=== PATIENT | male | born 1950 | race Caucasian/White ===

== ENCOUNTER 2023-01-27 15:33 | Inpatient (IN) | payer MEDICARE, OTHER, SELFPAY ==
[2023-01-27] VITALS (36 sets, daily range): BP systolic 107–143; BP diastolic 70–100; PULSE 90–165; RESP 15–30; TEMP 36.7–37.2; O2SAT 77–100; BMI 25.1
--- NOTE | 2023-01-27 15:56 | W.ED.WEAKNES ---
HPI - Weakness General: Chief complaint: Weakness Stated complaint: Pain When Urinating Time Seen by Provider: 01/27/23 15:50 History of Present Illness: This 72-year-old male presents to the ER with dysuria, nausea and vomiting that started 2 days ago. He has vomited twice today. He did not vomit yesterday. Patient denies fever. He has a past history of recurrent urinary tract infections. Last infection was few years ago. Patient is clinically stable. Associated symptoms: Reports dysuria, nausea and vomiting Review of Systems General: Reports: 10 or more systems reviewed and unremarkable except in HPI and below GI: Reports: nausea and vomiting : Reports: dysuria and urinary frequency Physical Exam Const: COMMON NORMALS: no acute distress, patient oriented x3, no limitations and alert Neck/C-Spine: COMMON NORMALS: full ROM and supple Chest: COMMONS NORMALS: normal inspection of the chest Resp: COMMON NORMALS: normal respiratory effort, No retractions, No use of accessory muscles and clear to auscultation bilaterally AUSCULTATION: clear to auscultation bilaterally Cardio: COMMON NORMALS: regular rate, regular rhythm and No murmurs present (Cardio) RATE: regular rate RHYTHM: regular rhythm GI: COMMON NORMALS: Normal to inspection, nondistended, normoactive bowel sounds present and non-tender : COMMON NORMALS: Yes no CVA tenderness BLADDER/KIDNEY EXAM: Yes no CVA tenderness Back/Pelvis: COMMON NORMALS: no CVA tenderness and no thoracic nor lumbar tenderness Extremity: GENERAL: Yes normal exam except as noted Neuro: COMMON NORMALS: patient oriented x3 and no focal motor deficits SENSORIUM/ORIENTATION: Yes alert Psych: COMMON NORMALS: mental status grossly normal and cooperative Course Reevaluation(s): Reevaluation #1: After receiving IV Cardizem 20 mg, heart rate dropped down to the 120s. Patient is still asymptomatic with no chest pain or shortness of breath. Reevaluation #2: Second dose of IV Cardizem 20 mg administered. Heart rate is currently less than 100. Patient remains clinically stable Consultations: Consultation #1: Case discussed with Dr. Bowers, infantry operations specialist on-call. He recommends admitting patient for further work-up and possible anticoagulation. Consultation #2: Case discussed with Dr. Kelly who accepts patient for admission. Vital Signs: Vital signs: Vital Signs Temperature 98.1 F 01/27/23 15:40 Pulse Rate 149 H 01/27/23 16:20 Respiratory Rate 20 H 01/27/23 16:20 Blood Pressure 107/87 01/27/23 16:20 Pulse Oximetry 99 01/27/23 16:20 Oxygen Delivery Me thod 01/27/23 15:40 MDM - Weakness Medical Decision Making Medical decision making: Patient presents to the ER with UTI symptoms. On evaluation, he was found to be in A-fib with RVR. Heart rate was between 140 and 160. Review of records revealed that close to 2 weeks ago, patient had a Holter monitor which at that time showed A-fib. Patient is not yet aware of the Holter monitor results. After administering IV Cardizem 20 mg x 2, heart rate was better controlled. Case discussed with Dr. Bowers, infantry operations specialist on-call. He recommends that patient be admitted for further evaluation and possible anticoagulation. Case discussed with Dr. Kelly who accepted patient for admission. Lab Data 01/27/23 16:12 01/27/23 16:12 Radiology Impressions Chest X-Ray 01/27/23 17:12 IMPRESSION: Minimal left lower lobe atelectasis or infiltrate. Correlate for pneumonia. Laboratory Results WBC 19.1 10^3/uL (4.0-10.0) H 01/27/23 16:12 RBC 5.05 10^6/uL (4.1-5.3) 01/27/23 16:12 Hgb 14.9 g/dL (11.7-16.6) 01/27/23 16:12 Hct 45.8 % (42.0-52.0) 01/27/23 16:12 MCV 90.7 fl (80-94) 01/27/23 16:12 MCH 29.5 pg (28.0-34.0) 01/27/23 16:12 MCHC 32.5 g/dL (30.0-36.0) 01/27/23 16:12 RDW 13.9 % (12.1-15.1) 01/27/23 16:12 Plt Count 334 10^3/cmm (130-400) 01/27/23 16:12 MPV 10.7 fL (7.4-10.4) H 01/27/23 16:12 Neut % (Auto) 85.8 % 01/27/23 16:12 Lymph % (Auto) 4.4 % 01/27/23 16:12 Mclennan % (Auto) 7.5 % 01/27/23 16:12 Eos % (Auto) 0.5 % 01/27/23 16:12 Baso % (Auto) 0.4 % 01/27/23 16:12 Neut # (Auto) 16.41 10^3/uL (1.8-7.7) H 01/27/23 16:12 Lymph # (Auto) 0.8 10^3/uL (0.8-4.8) 01/27/23 16:12 Mclennan # (Auto) 1.4 10^3/uL (0.2-0.9) H 01/27/23 16:12 Eos # (Auto) 0.1 10^3/uL (0.0-0.8) 01/27/23 16:12 Baso # (Auto) 0.1 10^3/uL (0.0-0.1) 01/27/23 16:12 Nucleated RBC % (auto) 0 % 01/27/23 16:12 Nucleated RBCs # 0.0 /100WBC 01/27/23 16:12 Sodium 142 mmol/L (136-145) 01/27/23 16:12 Potassium 3.4 mmol/L (3.5-5.1) L 01/27/23 16:12 Chloride 99 mmol/L (98-107) 01/27/23 16:12 Carbon Dioxide 22 mmol/L (22-29) 01/27/23 16:12 Anion Gap 24.4 (5-19) H 01/27/23 16:12 BUN 19 mg/dL (8-23) 01/27/23 16:12 Creatinine 1.9 mg/dL (0.7-1.2) H 01/27/23 16:12 GFR Calculation Not Reportable 01/27/23 16:12 Glucose 143 mg/dL (65-115) H 01/27/23 16:12 Calculated Osmolality 299 mOsm/kg (285-295) H 01/27/23 16:12 Calcium 9.0 mg/dL (8.5-10.5) 01/27/23 16:12 Total Bilirubin 0.9 mg/dL (0.15-1.2) 01/27/23 16:12 AST 12 U/L (0-40) 01/27/23 16:12 ALT 8 U/L (0-41) 01/27/23 16:12 Alkaline Phosphatase 85 U/L (40-130) 01/27/23 16:12 Troponin T Gen 5 ng/L 22 ng/L (0-15) H 01/27/23 16:07 Total Protein 7.7 g/dL (6.6-8.7) 01/27/23 16:12 Albumin 3.8 g/dL (3.5-5.2) 01/27/23 16:12 Globulin 3.9 g/dL (1.3-4.6) 01/27/23 16:12 Urine Color Light yellow (Yellow) 01/27/23 15:50 Urine Appearance Cloudy (CLEAR) A 01/27/23 15:50 Urine pH 8 (5-7) H 01/27/23 15:50 Ur Specific Mcwilliams 1.010 (1.005-1.030) 01/27/23 15:50 Urine Protein 1+ (Negative) H 01/27/23 15:50 Urine Glucose (UA) Norm (Normal) 01/27/23 15:50 Urine Ketones Negative (Negative) 01/27/23 15:50 Urine Blood 3+ (Negative) H 01/27/23 15:50 Urine Nitrate Positive (Negative) H 01/27/23 15:50 Urine Bilirubin Neg (Negative) 01/27/23 15:50 Prot Sulfosalicylic Acd Positive (Negative) 01/27/23 15:50 Urine Urobilinogen Neg mg/dL (Negative) 01/27/23 15:50 Ur Leukocyte Esterase 2+ (Negative) H 01/27/23 15:50 Urine RBC 5-10 /hpf (0-2) H 01/27/23 15:50 Urine WBC 80-100 /hpf (0-5) H 01/27/23 15:50 Ur Squamous Epith Cells None /hpf (0-5) 01/27/23 15:50 Amorphous Sediment Not Reportable 01/27/23 15:50 Urine Bacteria 3+ /hpf (NONE) H 01/27/23 15:50 Discharge Plan Discharge Patient Disposition: Admitted As Inpatient Clinical Impression: Atrial fibrillation with RVR, Acute UTI (urinary tract infection) Condition: Stable Coding Level of Care Code ED Environmental Protection Inspector for [place]
[2023-01-27] MEDS: sodium chloride 0.9% 1,000 ML 999 ML IV (16:22)
--- NOTE | 2023-01-27 16:22 | ECG_ITS ---
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 Measurements Intervals [place] Rate: 143 P: 0 CA: 0 QRS: 50 QRSD: 154 T: -17 QT: 294 QTc: 454 Interpretive Statements ATRIAL FIBRILLATION WITH RAPID VENTRICULAR RESPONSE RIGHT BUNDLE BRANCH BLOCK [120+ ms QRS DURATION, UPRIGHT V1, 40+ ms S IN I/aVL/V4/V5/V6] ST DEPRESSION, CONSIDER SUBENDOCARDIAL INJURY [0.1+ mV ST DEPRESSION] No previous ECG available for comparison Electronically Signed On 01-27-2023 16:43:11 CDT by Michael Valerio M.D. [id number] f
[2023-01-27] MEDS: dilTIAZem 5 mg/mL SDV 5 mL 20 MG IVP ×2 (16:23→17:44)
[2023-01-27 16:27] LABS: Basophils # 0.1 10^3/uL (0.0-0.1); Basophils % 0.4 %; Eosinophils # 0.1 10^3/uL (0.0-0.8); Eosinophils % 0.5 %; Hematocrit 45.8 % (42.0-52.0); Hemoglobin 14.9 g/dL (11.7-16.6); Lymphocytes # 0.8 10^3/uL (0.8-4.8); Lymphocytes % 4.4 %; Mean Corpuscular HGB Conc 32.5 g/dL (30.0-36.0); Mean Corpuscular Hemoglobin 29.5 pg (28.0-34.0); Mean Corpuscular Volume 90.7 fl (80-94); Mean Platelet Volume 10.7 fL (7.4-10.4); Monocytes # 1.4 10^3/uL (0.2-0.9); Monocytes % 7.5 %; Neutrophils # 16.41 10^3/uL (1.8-7.7); Neutrophils % 85.8 %; Nucleated Red Blood Cells % 0 %; Platelet Count 334 10^3/cmm (130-400); Red Blood Count 5.05 10^6/uL (4.1-5.3); Red Cell Distribution Width 13.9 % (12.1-15.1); White Blood Count 19.1 10^3/uL (4.0-10.0)
[2023-01-27 16:38] LABS: Bilirubin Urine Neg (Negative); Blood Urine 3+ (Negative); Glucose Urine UA Norm (Normal); Ketones Urine Negative (Negative); Leukocyte Esterase Urine 2+ (Negative); Nitrate Urine Positive (Negative); Protein Urine 1+ (Negative); Urine Appearance Cloudy (CLEAR); Urobilinogen Urine Neg (Negative); pH Urine 8 (5-7)
[2023-01-27 16:39] LABS: Add Urine Culture? Yes; Add Urine Microscopic? YES; Bacteria Urine 3+ /hpf; Sulfosalicylic Acid Urine Positive (Negative); Urine Color Light yellow (Yellow); WBC Urine 80-100 /hpf (0-5)
[2023-01-27 16:53] LABS: Alanine Aminotransferase 8 U/L (0-41); Albumin Level 3.8 g/dL (3.5-5.2); Alkaline Phosphatase 85 U/L (40-130); Anion Gap 24.4 (5-19); Aspartate Amino Transferase 12 U/L (0-40); Blood Urea Nitrogen 19 mg/dL (8-23); Carbon Dioxide 22 mmol/L (22-29); Chloride 99 mmol/L (98-107); Globulin 3.9 g/dL (1.3-4.6); Glucose 143 mg/dL (65-115); Osmolality Calculated 299 mOsm/kg (285-295); Potassium 3.4 mmol/L (3.5-5.1); Sodium 142 mmol/L (136-145); Total Bilirubin 0.9 mg/dL (0.15-1.2); Total Protein 7.7 g/dL (6.6-8.7)
--- NOTE | 2023-01-27 17:12 | XRR_ITS ---
PROCEDURE INFORMATION: Exam: XR Chest Exam date and time: 01/27/2023 5:31 PM Age: 72 years old Clinical indication: Other: A fib; Prior surgery; Surgery date: 6+ months; Surgery type: Open heart; Additional info: A-fib TECHNIQUE: Imaging protocol: Radiologic exam of the chest. Views: 1 view. COMPARISON: CR XR chest 2V* [id number] 07/01/2017 3:50 PM FINDINGS: Lungs: Minimal left lower lobe atelectasis or infiltrate. Pleural spaces: Unremarkable. No pleural effusion. No pneumothorax. Heart/Mediastinum: Stable heart size. Possible hiatal hernia. Bones/joints: Stable bones. Stable sternotomy changes. XR/XR chest 1V [id number] IMPRESSION: Minimal left lower lobe atelectasis or infiltrate. Correlate for pneumonia.
[2023-01-27] MEDS: cefTRIAXone 1,000 MG in sodium chloride 0.9% (plus) 50 ML 100 MG IV (17:44)
[2023-01-27 17:59] LABS: Troponin T (5th) Once 22 ng/L (0-15)
--- NOTE | 2023-01-27 18:03 | CTR_ITS ---
PROCEDURE INFORMATION: Exam: CT Abdomen And Pelvis Without Contrast Exam date and time: 01/27/2023 8:34 PM Age: 72 years old Clinical indication: Other: Dysuria. General weakness. Prior surgery; Surgery type: Appy. Hernia repair. Patient HX: General weakness with dysuria. History of recurrent UTI and pyelonephritis. ; Additional info: Renal stobe vs pyelo TECHNIQUE: Imaging protocol: Computed tomography of the abdomen and pelvis without contrast. Radiation optimization: All CT scans at this facility use at least one of these dose optimization techniques: automated exposure control; mA and/or kV adjustment per patient size (includes targeted exams where dose is matched to clinical indication); or iterative reconstruction. REPORTING DATA: Count of CT and Cardiac NM exams in prior 12 months: This patient has received [address] and 0 known cardiac nuclear medicine studies in the 12 months prior to the current study. COMPARISON: US renal BI* [id number] 03/25/2017 9:49 AM RADIATION DOSE METRICS: Total DLP (mGy-cm): 470.93 FINDINGS: Lungs: 2.2 cm pneumatocele in the right lower lobe. Coronary arteries: Severe calcified coronary artery disease. Diaphragm: Moderate intrathoracic hiatal hernia. Liver: Normal. No mass. Gallbladder and bile ducts: Normal. No calcified stones. No ductal dilation. Pancreas: Normal. No ductal dilation. Spleen: Normal. No splenomegaly. Adrenal glands: Normal. No mass. Kidneys and ureters: Multiple right renal simple cysts with the largest measuring > 1.0 cm . Multiple left renal simple cysts with the largest measuring > 1.0 cm. Bilateral nonobstructing renal calyceal stones. Stomach and bowel: Moderate diverticulosis. Appendix: No evidence of appendicitis. Intraperitoneal space: Unremarkable. No free air. No significant fluid collection. Vasculature: Calcification of the abdominal aorta and/or iliac arteries consistent with atherosclerotic vessel disease. 3.4 cm fusiform infrarenal abdominal aortic aneurysm without rupture. One or more calcified pelvic phleboliths. Lymph nodes: Unremarkable. No enlarged lymph nodes. Urinary bladder: Unremarkable as visualized. Reproductive: Unremarkable as visualized. Bones/joints: Unremarkable. No acute fracture. Soft tissues: Unremarkable. Other findings: Moderate calcified peripheral vascular disease. CT/CT abdomen pelvis wo con [id number] IMPRESSION: 1. 3.4 cm fusiform infrarenal abdominal aortic aneurysm without rupture. 2. Bilateral nonobstructing renal calyceal stones. 3. No obstructing ureteral stone or hydronephrosis. 4. CT without contrast is insensitive for radiographic detection of pyelonephritis. COMMENTS: Consistent with the [employer]'s Incidental Findings Committee white paper (J Am Narayan Radiol 2018): Any incidental renal lesion less than 1 cm or classified as too small to characterize, or any incidental cystic renal lesion characterized as simple-appearing, is likely benign. No follow-up imaging is recommended for these lesions per consensus recommendations based on imaging criteria.
--- NOTE | 2023-01-27 18:22 | ECG_ITS ---
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 Measurements Intervals [place] Rate: 113 P: 0 AK: 0 QRS: 76 QRSD: 142 T: -73 QT: 329 QTc: 453 Interpretive Statements ATRIAL FIBRILLATION WITH RAPID VENTRICULAR RESPONSE WITH ABERRANT CONDUCTION OR VENTRICULAR PREMATURE COMPLEXES RIGHT BUNDLE BRANCH BLOCK [120+ ms QRS DURATION, UPRIGHT V1, 40+ ms S IN I/aVL/V4/V5/V6] ST DEVIATION AND MODERATE T-WAVE ABNORMALITY, CONSIDER LATERAL ISCHEMIA [-0.1+ mV T-WAVE IN I/aVL/V5/V6] ST DEVIATION AND MODERATE T-WAVE ABNORMALITY, CONSIDER INFERIOR ISCHEMIA [-0.1+ mV T-WAVE IN II/aVF] Compared to ECG 01/27/2023 16:15:03 Ventricular premature complex(es) now present Aberrant conduction of supraventricular beat(s) now present T-wave abnormality now present Possible ischemia now present ST (T wave) deviation no longer present Electronically Signed On 01-28-2023 7:42:32 CDT by Michael Valerio M.D. [id number]
--- NOTE | 2023-01-27 18:30 | USCV_ITS ---
Sam Vogt Age: 72 Gender: M : 1950 Exam Date: 01/27/2023 19:05 Ordering Phys: Russell Kelly MD Technologist: TIA [place] [facility] [place]: atrial fibrillation with RVR, N+V x 2 days, history recurrent UTIs, history of MV repair 2000. BP: 107 / 87 HR: 99 Rhythm: Atrial fibrillation Technical Quality: Adequate MEASUREMENTS (Male / Female) Normal Values 2D ECHO LV Diastolic Diameter PLAX 4.2 cm 4.2 - 5.9 / 3.9 - 5.3 cm LV Systolic Diameter PLAX 3.3 cm IVS Diastolic Thickness 1.9 cm 0.6 - 1.0 / 0.6 - 0.9 cm IVS Systolic Thickness 2.2 cm LVPW Diastolic Thickness 1.3 cm 0.6 - 1.0 / 0.6 - 0.9 cm LVPW Systolic Thickness 1.4 cm LVOT Diameter 2.2 cm LV Ejection Fraction 2D Teich 44.1 % LV Ejection Fraction MOD 2C 72.4 % LV Ejection Fraction 2C AL 73.9 % LA Diameter 5.9 cm LA Width 5.1 cm LA Height 6.6 cm RA Width 4.0 cm RA Height 5.4 cm Aorta at Sinotubular Diameter 2.8 cm IVC Diameter 1.9 cm M-MODE Aortic Annulus Diameter 3.7 cm LA Ao Ratio MM 1.6 MV E Point Septal Separation 0.7 cm DOPPLER AV Peak Velocity 153.0 cm/s LVOT Peak Velocity 78.0 cm/s AV Area Cont Eq vti 2.0 cm squared AV Area Cont Eq pk 2.0 cm squared MV Peak Velocity 280.0 cm/s MV Area PHT 2.6 cm squared MV E' Velocity 124.0 cm/s Mitral E to MV E' Ratio 27.5 Mitral E to LV E' Lateral Ratio 25.5 Mitral E to LV E' Septal Ratio 30.3 TR Peak Velocity 249.0 cm/s TR Peak Gradient 24.8 mmHg TV Peak E Velocity 44.0 cm/s Right Atrial Pressure 10.0 mmHg Pulmonary Artery Systolic Pressu 34.8 mmHg PV Peak Velocity 83.0 cm/s RV Acceleration Time 0.1 s RV Ejection Time 0.3 s RV AcT/ET 0.2 FINDINGS Left Ventricle Diffuse hypokinesia of the left ventricular ejection fraction of 44%.mild left ventricular hypertrophy. Right Ventricle Normal right ventricular size and systolic function. Right Atrium Mildly increased right atrial size. Left Atrium Moderately increased left atrial size. Mitral Valve Moderate mitral annular calcification. Mild mitral valve regurgitation. Aortic Valve Thickened aortic valve. Tricuspid Valve Mild tricuspid valve regurgitation. Pulmonic Valve Pulmonic valve not well visualized. Pericardium No pericardial effusion. Aorta Normal aortic annulus size. IVC Inferior vena cava not visualized. CONCLUSIONS Diffuse hypokinesia of the left ventricular ejection fraction of 44%.mild left ventricular hypertrophy. Moderately increased left atrial size. Mildly increased right atrial size. Moderate mitral annular calcification. Mild mitral valve regurgitation. Thickened aortic valve. Mild tricuspid valve regurgitation. Estimated pulmonary artery peak systolic pressure 35 mm of Hg There is no pericardial effusion. There are no intracardiac masses. No similar previous studies are available for comparison Dr Gage Bowers MD [facility] (Electronically Signed) Final Date: 28 January 2023 17:02 S
--- NOTE | 2023-01-27 18:32 | PM.HP ---
Providers/Chief Complaint Primary Care Provider: Joe Hernandez MD Chief Complaint: Pain When Urinating History of Present Illness Sam Vogt is a 72 year old male with a past medical history of mitral valve rupture status postrepair, history of BPH, history of recurrent UTIs, history of hypertension who is originally from [place], moved here with his daughter, who presents to [facility] due to weakness, fatigue, dysuria, increased urinary frequency, and left flank pain. Patient tells me that he is here because he has been having increased urinary frequency, with dysuria with left flank pain, is having chills, no fevers, no nausea, vomiting. No history of nephrolithiasis. No history of pyelonephritis. He does tell me he gets with UTIs because he has a large prostate. In the emergency room, he was found to have a UTI, with elevated white blood cell count, creatinine 1.9, he was found to have A-fib with RVR, treated with Cardizem twice, currently in atrial fibrillation heart rates in the 90s, blood pressure 100/80, alert and oriented x x2, I do require frequent repeating of my questions, he is a bit encephalopathic, but can follow commands,, Review of Systems Const: Reports: chills, fatigue and malaise; Denies: fever(s) Eyes: Denies: change in vision Card: Reports: palpitations; Denies: chest pain Resp: Reports: dyspnea GI: Denies: abdominal pain, nausea or vomiting : Reports: flank pain, difficulty urinating, dysuria and urinary frequency Musc: Denies: back pain Skin/Breast: Denies: rash Neuro: Reports: weakness in extremities; Denies: headache(s) or numbness in extremities Medications/Allergies Home Medications Medication Instructions Recorded Confirmed Last Taken Type amlodipine 10 mg tablet 10 mg PO DAILY 01/27/23 01/27/23 01/27/23 History atorvastatin 20 mg tablet 20 mg PO DAILY 01/27/23 01/27/23 01/26/23 History calcitriol 0.5 mcg capsule 0.5 mcg PO BID 01/27/23 01/27/23 01/27/23 History fluoxetine 40 mg capsule 40 mg PO DAILY 01/27/23 01/27/23 01/27/23 History lisinopril 20 1 tab PO DAILY 01/27/23 01/27/2301/27/23 History mg-hydrochlorothiazide 25 mg tablet tamsulosin 0.4 mg capsule 0.4 mg PO BID 01/27/23 01/27/23 01/27/23 History Allergies Allergy/AdvReac Type Severity Reaction Status Date / Time No Known Allergies Allergy Unverified 01/27/23 15:45 PFSH Acute PFSH: Medical History (Updated 01/27/23 @ 18:39 by Russell Kelly MD) History of BPH History of hypertension History of recurrent UTIs Surgical History (Updated 01/27/23 @ 18:39 by Russell Kelly MD) H/O mitral valve repair History of appendectomy History of hernia surgery Family History (Updated 01/27/23 @ 18:39 by Russell Kelly MD) Mother CAD (coronary artery disease) Rheumatic heart disease Father CAD (coronary artery disease) Social History (Updated 01/27/23 @ 18:39 by Russell Kelly MD) Smoking and tobacco status: former smoker Alcohol intake: never Substance/Drug Use: never Vitals/I&O/Wt Last Vital Signs Temp 98.1 F 01/27/23 15:40 Pulse 149 H 01/27/23 16:20 Resp 20 H 01/27/23 16:20 BP 107/87 01/27/23 16:20 Pulse Ox 99 01/27/23 16:20 O2 Del Method 01/27/23 15:40 Weight last 48 hrs Weight 81.647 kg Physical Exam Const: COMMON NORMALS: no acute distress EXAM LIMITATIONS: altered mental status ORIENTATION/CONSCIOUSNESS: Yes awake, Yes oriented to person, Yes oriented to place and Yes confused; not oriented to time OTHER: Becomes drowsy, requires frequent redirection, frequent requestioning HENMT: COMMON NORMALS: normocephalic HEAD & SCALP: normocephalic Eye: COMMON NORMALS: Equal, round and reactive pupils present and EOMs intact bilaterally Neck/C-Spine: COMMON NORMALS: no JVD Lymph: LYMPHATIC: no lymphadenopathy noted Chest: COMMONS NORMALS: normal inspection of the chest Resp: COMMON NORMALS: normal respiratory effort, No retractions, No use of accessory muscles and clear to auscultation bilaterally AUSCULTATION: clear to auscultation bilaterally Cardio: COMMON NORMALS: no JVD, regular rate, S1 normal heart sound present and S2 normal heart sound present RATE: tachycardic RHYTHM: abnormal rhythm irregularly irregular HEART SOUNDS: S1 normal heart sound present and S2 normal heart sound present GI: COMMON NORMALS: Normal to inspection, nondistended, normoactive bowel sounds present, Soft to palpation and non-tender Back/Pelvis: OTHER: Left CVA tenderness Extremity: COMMON NORMALS: no pedal edema Neuro: COMMON NORMALS: CN's II-XII intact bilaterally, moves all extremities and no focal motor deficits Skin: NARRATIVE SKIN EXAM: No skin mottling Data 01/27/23 16:12 01/27/23 16:12 A&P Assessment and plan (1) SIRS (systemic inflammatory response syndrome): (2) Hypokalemia: (3) Acute kidney injury: (4) Pyelonephritis: (5) Acute encephalopathy: (6) Sepsis: (7) Atrial fibrillation with RVR: (8) Acute UTI (urinary tract infection): Plan Acute encephalopathy -Likely secondary to pyelonephritis, UTI -Neurochecks, aspiration precautions -Monitor urine cultures, blood cultures -Does have A-fib, but no focal neurologic deficits, no facial droop no slurring of his words, no paresthesias -We will do CT of the head A-fib with RVR -Likely secondary to SIRS, sepsis -Continue p.o. Cardizem 30 every 6 hours -Heparin drip -Cardiac echo -TSH, mag, serial EKGs serial troponins telemetry monitoring Acute pyelonephritis -With evidence of SIRS, sepsis given white blood cell count of 19,000, currently in A-fib, creatinine 1.9, acute encephalopathy -History of recurrent UTIs Plan -Moved to [facility] -Please Call catheter -Zosyn for antibiotic coverage -CT scan abdomen pelvis to eval for obstructive uropathy and pyelonephritis -Follow urine cultures, follow-up blood cultures -Full code -Heparin for DVT prophylaxis Hypokalemia, p.o. replacement Acute kidney injury -Secondary to acute pyelonephritis, UTI, sepsis -CT scan as above -IV fluids BPH, continue Flomax Pain control morphine Nausea control Zofran Full code Heparin drip for DVT prophylaxis Attestations Medical Necessity Statement*: Patient requires hospitalization, inpatient, greater than 2 minutes, for acute pyelonephritis, with SIRS, with sepsis, with acute encephalopathy, with A-fib with RVR Coding Level of Care Code Acute Code for Chg Fwd Diagnoses SIRS (systemic inflammatory response syndrome) R65.10 Hypokalemia E87.6 Acute kidney injury N17.9 Pyelonephritis N12 Acute encephalopathy G93.40 Sepsis A41.9 Atrial fibrillation with RVR I48.91 Acute UTI (urinary tract infection) N39.0
--- NOTE | 2023-01-27 18:42 | CTR_ITS ---
PROCEDURE INFORMATION: Exam: CT Head Without Contrast Exam date and time: 01/27/2023 8:31 PM Age: 72 years old Clinical indication: Other: General weakness. ; Additional info: AMS TECHNIQUE: Imaging protocol: Computed tomography of the head without contrast. Radiation optimization: All CT scans at this facility use at least one of these dose optimization techniques: automated exposure control; mA and/or kV adjustment per patient size (includes targeted exams where dose is matched to clinical indication); or iterative reconstruction. REPORTING DATA: Count of CT and Cardiac NM exams in prior 12 months: This patient has received [address] and 0 known cardiac nuclear medicine studies in the 12 months prior to the current study. COMPARISON: US soft tissue head neck [id number] 08/16/2017 2:03 PM RADIATION DOSE METRICS: Total DLP (mGy-cm): 1143.11 FINDINGS: Brain: Anterior left basal ganglia chronic lacunar-type infarct. No acute infarct. No hemorrhage. Involutional changes of the brain, commensurate with age. No mass effect. Cerebral ventricles: No ventriculomegaly. Paranasal sinuses: Visualized sinuses are unremarkable. No fluid levels. Mastoid air cells: Visualized mastoid air cells are well aerated. Bones/joints: Unremarkable. No acute fracture. Soft tissues: Unremarkable. CT/CT head wo con* [id number] IMPRESSION: No acute intracranial abnormality.
[2023-01-27 20:00] LABS: INR 1.22 (0.8-1.2)
[2023-01-27 20:05] LABS: Troponin 5 2HR 20.63 ng/L (0-15)
[2023-01-27 20:11] LABS: C Reactive Protein 115.8 mg/L (0.0-4.9)
[2023-01-27 20:18] LABS: Procalcitonin 0.43 ng/mL (0-0.5)
[2023-01-27] MEDS: sodium chloride 0.9% 1,000 ML 75 ML IV (22:30)
[2023-01-27] MEDS: piperacillin-tazobactam 3.375 GM in sodium chloride 0.9% (plus) 50 ML IV (22:31)
[2023-01-27] MEDS: dilTIAZem 30 mg Tablet PO (22:36)
[2023-01-27] MEDS: potassium chloride ER 20 mEq Tablet 40 MEQ PO (22:36)
[2023-01-27] MEDS: heparin 5,000 unit/mL INJ 1 mL IV (22:38)
[2023-01-27] MEDS: pantoprazole 40 mg SDV IVP (22:38)
[2023-01-27] MEDS: heparin drip 25,000 UNIT/500 ML PREMIX 23 UNIT IV (22:39)
[2023-01-27 22:43] LABS: Cholesterol 138 mg/dL (0-200); HDL Cholesterol 30 mg/dL (60-100); LDL Cholesterol Calculated 95 mg/dL (50-129); LDL HDL Ratio 3.17 RATIO (0.00-3.22); Thyroid Stimulating Hormone 3.85 uIU/mL (0.27-4.20); Triglycerides 66 mg/dL (0-150)
[2023-01-27 22:45] LABS: Estmated Average Glucose 111; Hemoglobin A1C 5.5 % (4.0-6.0)
[2023-01-28] VITALS (11 sets, daily range): BP systolic 112–142; BP diastolic 62–92; PULSE 82–118; RESP 18–30; TEMP 36.9–37.4; O2SAT 92–97
[2023-01-28] MEDS: magnesium sulfate premix 2 GM/50 ML PIGGYBACK IV (01:07)
--- NOTE | 2023-01-28 01:45 | PC.NURSE ---
Patient had previously refused lee insertion. Nurse bladder scanned patient after he voided 75ml, bladderscanned only showed 29ml in bladder. Patient states he does not feel full and does not feel he needs the lee as he is voiding on his own. Refusing lee at this time. Encouraged patient to continue to use urinal so nursing can continue to monitor output.
[2023-01-28] MEDS: dilTIAZem 30 mg Tablet PO (03:50)
[2023-01-28 04:43] LABS: Basophils % 0.3 %; Hematocrit 35.7 % (42.0-52.0); Hemoglobin 12.2 g/dL (11.7-16.6); Lymphocytes # 0.8 10^3/uL (0.8-4.8); Lymphocytes % 5.2 %; Mean Corpuscular HGB Conc 34.2 g/dL (30.0-36.0); Mean Corpuscular Hemoglobin 30.2 pg (28.0-34.0); Mean Corpuscular Volume 88.4 fl (80-94); Mean Platelet Volume 10.7 fL (7.4-10.4); Monocytes % 6.8 %; Neutrophils # 12.99 10^3/uL (1.8-7.7); Neutrophils % 86.8 %; Nucleated Red Blood Cells % 0 %; Platelet Count 203 10^3/cmm (130-400); Red Blood Count 4.04 10^6/uL (4.1-5.3); Red Cell Distribution Width 13.9 % (12.1-15.1)
[2023-01-28 05:01] LABS: Alanine Aminotransferase < 5 U/L (0-41); Albumin Level 2.9 g/dL (3.5-5.2); Alkaline Phosphatase 63 U/L (40-130); Anion Gap 15.2 (5-19); Aspartate Amino Transferase 10 U/L (0-40); Blood Urea Nitrogen 18 mg/dL (8-23); Calcium 7.7 mg/dL (8.5-10.5); Carbon Dioxide 21 mmol/L (22-29); Chloride 108 mmol/L (98-107); Glucose 128 mg/dL (65-115); Magnesium 1.8 mg/dL (1.7-2.3); Osmolality Calculated 296 mOsm/kg (285-295); Phosphorus 2.5 mg/dL (2.5-4.5); Potassium 3.2 mmol/L (3.5-5.1); Sodium 141 mmol/L (136-145); Total Bilirubin 0.8 mg/dL (0.15-1.2); Total Protein 5.9 g/dL (6.6-8.7)
[2023-01-28 05:02] LABS: Lactic Sepsis W/Reflex 0.9 mmol/L (0.5-2.2)
[2023-01-28 05:04] LABS: Partial Thromboplastin Time 124.7 SECONDS (23.9-36.7)
[2023-01-28] MEDS: piperacillin-tazobactam 3.375 GM in sodium chloride 0.9% (plus) 50 ML IV ×3 (05:21→21:47)
[2023-01-28] MEDS: magnesium lactate 84 mg Tablet PO (08:59)
[2023-01-28] MEDS: potassium chloride ER 20 mEq Tablet 40 MEQ PO (08:59)
[2023-01-28] MEDS: pantoprazole 40 mg SDV IVP ×2 (09:00→20:47)
[2023-01-28] MEDS: atorvastatin 40 mg Tablet 20 MG PO (09:00)
[2023-01-28] MEDS: dilTIAZem 60 mg Tablet PO ×3 (09:00→20:47)
[2023-01-28] MEDS: fluoxetine 20 mg Capsule 40 MG PO (09:00)
[2023-01-28] MEDS: tamsulosin 0.4 mg Capsule PO ×2 (09:00→17:06)
--- NOTE | 2023-01-28 09:54 | PC.CHAP ---
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 visit [] Patient/Family/Request visit [] Outpatient visit [] Follow-up visit [] Physician referral [] Code/Alert [x] Routine visit [] Staff referral [] Actively dying [] Patient sleeping [] Family support [] [] Out of room [] Palliative care [] [x] Receiving care in room [] Pre-surgical visit [] Trauma [] Long length of stay [] ICU visit [] Other: Relational/Emotional Strength [x] Patient feels connected with others/family/visitors/staff [] Distress [] Loneliness/isolation [] Abandonment Spirituality of Patient [x] Person of Marie [] Attends Islam of their Marie [x] Believes in Prayer [] Reads Bible or Mosque materials [] There are Spiritual issues to be addressed [employer] Interventions [x] Prayer [x] Active listening [x] Non-anxious presence [x] Spiritual/emotional support [] Crisis/trauma care [x] Spiritual counseling [] Bereavement support [] Provided bereavement packet [] Provided Bible/devotional materials [] Provided toy/stuffed animal, coloring book to patient or family member [] Provided Communion [] Anointing/Severn [] Salvation [x] Completed spiritual assessment [] Other: Impact on Illness or Injury [] Angry [] Fearful [] Anxious [] Often cries [] Exhaustion [] Unable to work [] Unable to attend mormon [] Unable to walk/stand [] Unable to read [] Unable to drive [] Unable to eat/drink [] Unable to sleep [] Unable to be with family [] Patient intubated [] Other: Summary senior dealing with a Karime had testers waiting on doctors report has a good attitude well go joe e Time spent with patient 10 mns
[2023-01-28 11:30] LABS: Partial Thromboplastin Time 68.3 SECONDS (23.9-36.7)
[2023-01-28] MEDS: sodium chloride 0.9% 1,000 ML 75 ML IV (12:58)
--- NOTE | 2023-01-28 15:36 | P.PN_ITS ---
Subjective Subjective: Patient was seen this morning, he is much more alert and awake, follows all commands, he has no pain complaints, no fever complaints Vitals/I&O/Wt Last Vital Signs Temp 98.5 F 01/28/23 11:53 Pulse 82 01/28/23 11:53 Resp 18 01/28/23 11:53 BP 123/79 01/28/23 11:53 Pulse Ox 95 01/28/23 11:53 O2 Del Method 01/28/23 11:53 01/28/23 01/28/23 01/28/23 06:59 14:59 22:59 Intake Total 369.117 / 9624.208 8265.4 / 2126.4 Output Total 75 / 125 400 / 400 Balance 294.117 / 8556.691 4740.4 / 1726.4 Weight last 48 hrs Weight 80.513 kg Weight 81.647 kg Physical Exam Const: COMMON NORMALS: no acute distress and patient oriented x3 Resp: COMMON NORMALS: normal respiratory effort, No retractions, No use of accessory muscles and clear to auscultation bilaterally AUSCULTATION: clear to auscultation bilaterally Cardio: COMMON NORMALS: regular rate, S1 normal heart sound present and S2 normal heart sound present RATE: regular rate RHYTHM: abnormal rhythm irregularly irregular HEART SOUNDS: S1 normal heart sound present and S2 normal heart sound present GI: COMMON NORMALS: Normal to inspection, nondistended, normoactive bowel sounds present and non-tender Extremity: COMMON NORMALS: no pedal edema Neuro: COMMON NORMALS: patient oriented x3 Psych: COMMON NORMALS: mental status grossly normal Data 01/28/23 04:29 01/28/23 04:29 Micro: Microbiology 01/27/23 15:50 Urine Culture - Preliminary Urine,Clean Catch Gram Negative Rods 01/27/23 19:10 Blood Culture - Preliminary Blood SPECIMEN COLLECTED 01/27/23 19:10 Blood Culture - Preliminary Blood SPECIMEN COLLECTED A&P Assessment and plan (1) SIRS (systemic inflammatory response syndrome): (2) Hypokalemia: (3) Acute kidney injury: (4) Pyelonephritis: (5) Acute encephalopathy: (6) Sepsis: (7) Atrial fibrillation with RVR: (8) Acute UTI (urinary tract infection): Plan Acute encephalopathy -Resolved -Likely secondary to pyelonephritis, UTI -Neurochecks, aspiration precautions -Monitor urine cultures, blood cultures -Does have A-fib, but no focal neurologic deficits, no facial droop no slurring of his words, no paresthesias A-fib with RVR -Likely secondary to SIRS, sepsis -Continue p.o. Cardizem 60 every 6 hours -Stop heparin drip, switch to Eliquis -Cardiac echo Acute pyelonephritis -With evidence of SIRS, sepsis given white blood cell count of 19,000, currently in A-fib, creatinine 1.9, acute encephalopathy -History of recurrent UTIs Plan -Moved to [facility] -Please Call catheter -Zosyn for antibiotic coverage -Follow urine cultures, follow-up blood cultures -Full code -Heparin for DVT prophylaxis Hypokalemia, p.o. replacement Acute kidney injury -Secondary to acute pyelonephritis, UTI, sepsis -IV fluids BPH, continue Flomax Pain control morphine Nausea control Zofran Full code Eliquis for DVT prophylaxis Attestations Medical Necessity Statement*: Patient requires hospitalization for A-fib with RVR, acute pyelonephritis, cute encephalopathy Coding Level of Care Code 01041 Moderate MDM includes number and complexity of problems actively addressed during encounter, amount and/or complexity of data reviewed/ordered and described risk of complication, morbidity or mortality of management as documen dennis Diagnoses SIRS (systemic inflammatory response syndrome) R65.10 Hypokalemia E87.6 Acute kidney injury N17.9 Pyelonephritis N12 Acute encephalopathy G93.40 Sepsis A41.9 Atrial fibrillation with RVR I48.91 Acute UTI (urinary tract infection) N39.0
[2023-01-28] MEDS: apixaban 5 mg Tablet PO (17:06)
--- NOTE | 2023-01-28 20:14 | PC.NURSE ---
shift report pt refused to have lee inserted when offered. educated pt and dgtr on anticoagulation for afib. notified case mgt that pt might be needing HHS per dgtr. dr dorantes made aware as well on this need. pt started to have tremors/shaking on left arm and legs. notified dr dorantes and he came in to see pt at bedside. pt unable to remember the name of his medicine for tremors when asked if he has been taking any med for the tremors, he said he takes it at home. will review med.
[2023-01-28] MEDS: ALPRAZolam 0.5 mg Tablet PO (21:46)
[2023-01-28] MEDS: acetaminophen 325 mg Tablet 650 MG PO (21:46)
[2023-01-29] VITALS (12 sets, daily range): BP systolic 109–150; BP diastolic 59–99; PULSE 71–97; RESP 19–26; TEMP 36.6–37; O2SAT 91–99
[2023-01-29] MEDS: sodium chloride 0.9% 1,000 ML 50 ML IV ×2 (03:35→21:32)
[2023-01-29] MEDS: dilTIAZem 60 mg Tablet PO ×4 (03:35→20:41)
[2023-01-29 05:37] LABS: Basophils % 0.3 %; Eosinophils # 0.1 10^3/uL (0.0-0.8); Eosinophils % 1.8 %; Hematocrit 35.2 % (42.0-52.0); Hemoglobin 11.1 g/dL (11.7-16.6); Lymphocytes # 0.8 10^3/uL (0.8-4.8); Lymphocytes % 11.9 %; Mean Corpuscular HGB Conc 31.5 g/dL (30.0-36.0); Mean Corpuscular Hemoglobin 28.6 pg (28.0-34.0); Mean Corpuscular Volume 90.7 fl (80-94); Monocytes # 0.3 10^3/uL (0.2-0.9); Monocytes % 4.3 %; Neutrophils # 5.35 10^3/uL (1.8-7.7); Neutrophils % 81.2 %; Nucleated Red Blood Cells % 0 %; Platelet Count 174 10^3/cmm (130-400); Red Blood Count 3.88 10^6/uL (4.1-5.3); Red Cell Distribution Width 14.3 % (12.1-15.1); White Blood Count 6.6 10^3/uL (4.0-10.0)
[2023-01-29 05:49] LABS: Alanine Aminotransferase < 5 U/L (0-41); Albumin Level 2.7 g/dL (3.5-5.2); Alkaline Phosphatase 63 U/L (40-130); Anion Gap 13.5 (5-19); Aspartate Amino Transferase 12 U/L (0-40); Blood Urea Nitrogen 17 mg/dL (8-23); Calcium 7.7 mg/dL (8.5-10.5); Carbon Dioxide 21 mmol/L (22-29); Chloride 113 mmol/L (98-107); Glucose 91 mg/dL (65-115); Magnesium 1.8 mg/dL (1.7-2.3); Osmolality Calculated 299 mOsm/kg (285-295); Phosphorus 2.6 mg/dL (2.5-4.5); Potassium 3.5 mmol/L (3.5-5.1); Sodium 144 mmol/L (136-145); Total Bilirubin 0.5 mg/dL (0.15-1.2); Total Protein 5.7 g/dL (6.6-8.7)
[2023-01-29] MEDS: piperacillin-tazobactam 3.375 GM in sodium chloride 0.9% (plus) 50 ML IV ×3 (06:04→21:33)
[2023-01-29] MEDS: levothyroxine 125 mcg Tablet PO (06:04)
[2023-01-29] MEDS: apixaban 5 mg Tablet PO ×2 (06:04→17:28)
[2023-01-29 09:10] LABS: Creatine Phosphokinase 159 U/L (39-308)
[2023-01-29] MEDS: fluoxetine 20 mg Capsule 40 MG PO (09:11)
[2023-01-29] MEDS: tamsulosin 0.4 mg Capsule PO ×2 (09:12→17:28)
[2023-01-29] MEDS: atorvastatin 40 mg Tablet 20 MG PO (09:12)
[2023-01-29] MEDS: magnesium lactate 84 mg Tablet PO (09:12)
[2023-01-29] MEDS: pantoprazole 40 mg SDV IVP ×2 (09:12→20:42)
--- NOTE | 2023-01-29 14:24 | PM.PN ---
Subjective Subjective: Patient was seen this morning, he feels better, he had episodes of anxiety during the night, requiring Xanax Vitals/I&O/Wt Last Vital Signs Temp 97.9 F 01/29/23 09:08 Pulse 81 01/29/23 12:23 Resp 25 H 01/29/23 12:23 BP 136/96 01/29/23 12:23 Pulse Ox 92 01/29/23 12:23 O2 Del Method 01/29/23 09:08 01/28/23 01/29/23 01/29/23 22:59 06:59 14:59 Intake Total 1179.2 / 3305.6 1174.167 / 4479.767 634 / 634 Output Total 550 / 950 625 / 1575 100 / 100 Balance 629.2 / 2355.6 549.167 / 2904.767 534 / 534 Weight last 48 hrs Weight 81.828 kg Weight 80.513 kg Weight 81.647 kg Physical Exam Const: COMMON NORMALS: no acute distress and patient oriented x3 Resp: COMMON NORMALS: normal respiratory effort, No retractions, No use of accessory muscles and clear to auscultation bilaterally AUSCULTATION: clear to auscultation bilaterally Cardio: COMMON NORMALS: regular rate, regular rhythm, S1 normal heart sound present and S2 normal heart sound present RATE: regular rate RHYTHM: regular rhythm HEART SOUNDS: S1 normal heart sound present and S2 normal heart sound present GI: COMMON NORMALS: Normal to inspection, nondistended, normoactive bowel sounds present and non-tender Extremity: COMMON NORMALS: no pedal edema Neuro: COMMON NORMALS: patient oriented x3 Psych: COMMON NORMALS: mental status grossly normal Data 01/29/23 04:39 01/29/23 04:39 Micro: Microbiology 01/27/23 15:50 Urine Culture - Final Urine,Clean Catch Proteus mirabilis 01/27/23 19:10 Blood Culture - Preliminary Blood NEGATIVE TO DATE 01/27/23 19:10 Blood Culture - Preliminary Blood NEGATIVE TO DATE A&P Assessment and plan (1) SIRS (systemic inflammatory response syndrome): (2) Hypokalemia: (3) Acute kidney injury: (4) Pyelonephritis: (5) Acute encephalopathy: (6) Sepsis: (7) Atrial fibrillation with RVR: (8) Acute UTI (urinary tract infection): Plan Acute encephalopathy -Resolved -Likely secondary to pyelonephritis, UTI -Neurochecks, aspiration precautions -Monitor urine cultures, blood cultures -Does have A-fib, but no focal neurologic deficits, no facial droop no slurring of his words, no paresthesias A-fib with RVR -Likely secondary to SIRS, sepsis -Continue p.o. Cardizem 60 every 6 hours -Continue Eliquis -Cardiac echo Diffuse hypokinesia of the left ventricular ejection fraction of ?44%.mild left ventricular hypertrophy. ?Moderately increased left atrial size. ?Mildly increased right atrial size. ?Moderate mitral annular calcification. Mild mitral valve ?regurgitation. ?Thickened aortic valve. ?Mild tricuspid valve regurgitation. ?Estimated pulmonary artery peak systolic pressure 35 mm of Hg ?There is no pericardial effusion. ?There are no intracardiac masses. ?No similar previous studies are available for comparison Acute pyelonephritis -With evidence of SIRS, sepsis given white blood cell count of 19,000, currently in A-fib, creatinine 1.9, acute encephalopathy -History of recurrent UTIs Plan -Moved to [facility] -Zosyn for antibiotic coverage -Follow urine cultures, follow-up blood cultures -Full code -Heparin for DVT prophylaxis Hypokalemia, p.o. replacement Acute kidney injury -Secondary to acute pyelonephritis, UTI, sepsis -IV fluids BPH, continue Flomax Pain control morphine Nausea control Zofran Full code Eliquis for DVT prophylaxis Attestations Medical Necessity Statement*: Patient requires hospitalization for acute encephalopathy, A-fib, acute pyelonephritis, LILY, inpatient, greater than 2 midnights Diagnoses SIRS (systemic inflammatory response syndrome) R65.10 Hypokalemia E87.6 Acute kidney injury N17.9 Pyelonephritis N12 Acute encephalopathy G93.40 Sepsis A41.9 Atrial fibrillation with RVR I48.91 Acute UTI (urinary tract infection) N39.0
[2023-01-29] MEDS: CLONazepam 0.5 mg Tablet 0.25 MG PO (20:39)
[2023-01-30] VITALS (8 sets, daily range): BP systolic 123–139; BP diastolic 71–94; PULSE 73–103; RESP 18–26; TEMP 36.5–37.2; O2SAT 93–95
[2023-01-30] MEDS: dilTIAZem 60 mg Tablet PO ×2 (02:03→09:10)
[2023-01-30 03:33] LABS: Basophils # 0.1 10^3/uL (0.0-0.1); Basophils % 0.9 %; Eosinophils # 0.2 10^3/uL (0.0-0.8); Eosinophils % 3.5 %; Hematocrit 33.9 % (42.0-52.0); Hemoglobin 10.8 g/dL (11.7-16.6); Lymphocytes # 0.9 10^3/uL (0.8-4.8); Lymphocytes % 16.3 %; Mean Corpuscular HGB Conc 31.9 g/dL (30.0-36.0); Mean Corpuscular Hemoglobin 28.8 pg (28.0-34.0); Mean Corpuscular Volume 90.4 fl (80-94); Mean Platelet Volume 10.6 fL (7.4-10.4); Monocytes # 0.4 10^3/uL (0.2-0.9); Monocytes % 6.1 %; Neutrophils # 4.16 10^3/uL (1.8-7.7); Nucleated Red Blood Cells % 0 %; Platelet Count 194 10^3/cmm (130-400); Red Blood Count 3.75 10^6/uL (4.1-5.3); Red Cell Distribution Width 14.3 % (12.1-15.1); White Blood Count 5.7 10^3/uL (4.0-10.0)
[2023-01-30 03:49] LABS: Alanine Aminotransferase 7 U/L (0-41); Albumin Level 2.6 g/dL (3.5-5.2); Alkaline Phosphatase 63 U/L (40-130); Anion Gap 14.6 (5-19); Aspartate Amino Transferase 13 U/L (0-40); Blood Urea Nitrogen 19 mg/dL (8-23); Calcium 7.5 mg/dL (8.5-10.5); Carbon Dioxide 19 mmol/L (22-29); Chloride 110 mmol/L (98-107); Glucose 95 mg/dL (65-115); Magnesium 1.4 mg/dL (1.7-2.3); Osmolality Calculated 292 mOsm/kg (285-295); Phosphorus 2.9 mg/dL (2.5-4.5); Potassium 3.6 mmol/L (3.5-5.1); Sodium 140 mmol/L (136-145); Total Bilirubin 0.3 mg/dL (0.15-1.2); Total Protein 5.6 g/dL (6.6-8.7)
[2023-01-30] MEDS: apixaban 5 mg Tablet PO (05:18)
[2023-01-30] MEDS: levothyroxine 125 mcg Tablet PO (05:18)
[2023-01-30] MEDS: piperacillin-tazobactam 3.375 GM in sodium chloride 0.9% (plus) 50 ML IV (05:19)
[2023-01-30] MEDS: magnesium lactate 84 mg Tablet PO (09:10)
[2023-01-30] MEDS: tamsulosin 0.4 mg Capsule PO (09:10)
[2023-01-30] MEDS: pantoprazole 40 mg SDV IVP (09:10)
[2023-01-30] MEDS: fluoxetine 20 mg Capsule 40 MG PO (09:11)
[2023-01-30] MEDS: aspirin 81 mg EC Tablet PO (09:11)
[2023-01-30] MEDS: atorvastatin 40 mg Tablet 20 MG PO (09:12)
--- NOTE | 2023-01-30 09:57 | PM.DCS ---
Discharge Providers Date of Admission: 01/27/23 18:30 Date of Discharge: January 30, 2023 Attending Provider at Admission: Russell Kelly MD Attending Provider at Discharge: Russell Kelly MD Primary Care Provider: Joe Hernandez MD Diagnoses at Discharge Discharge Diagnosis (1) SIRS (systemic inflammatory response syndrome): Status: Acute (2) Hypokalemia: Status: Acute (3) Acute kidney injury: Status: Acute (4) Pyelonephritis: Status: Acute (5) Acute encephalopathy: Status: Acute (6) Sepsis: Status: Acute (7) Atrial fibrillation with RVR: Status: Acute (8) Acute UTI (urinary tract infection): Status: Acute Reason for Visit Reason for Visit: Pain When Urinating Hospital Course Hospital Course Sam Vogt is a 72 year old male with a past medical history of mitral valve rupture status postrepair, history of BPH, history of recurrent UTIs, history of hypertension who is originally from [place], moved here with his daughter, who presents to [facility] due to weakness, fatigue, dysuria, increased urinary frequency, and left flank pain.? Patient tells me that he is here because he has been having increased urinary frequency, with dysuria with left flank pain, is having chills, no fevers, no nausea, vomiting.? No history of? nephrolithiasis.? No history of pyelonephritis.? He does tell me he gets with UTIs because he has a large prostate.? In the emergency room, he was found to have a UTI, with elevated white blood cell count, creatinine 1.9, he was found to have A-fib with RVR, treated with Cardizem twice, currently in atrial fibrillation heart rates in the 90s, blood pressure 100/80, alert and oriented x x2, I do require frequent repeating of my questions, he is a bit encephalopathic, but can follow commands Patient was admitted to [facility] for acute pyelonephritis with SIRS, with acute encephalopathy, with acute kidney injury, dehydration, received IV fluids, received broad-spectrum antibiotic therapy, urine culture showed Proteus, overall clinically improved, mentation improved, remained afebrile, blood cultures so far have been unremarkable. We will discharge him on 5 remaining days of cefdinir with a close follow-up with primary care provider as outpatient Patient had A-fib with RVR during his hospitalization, managed with Cardizem, monitor with heparin drip, overall clinically improved, transition to Eliquis, hemoglobin remained stable. Patient will be discharged with Eliquis 5 mg twice daily with Cardizem 120 twice daily with close follow-up with cardiology as outpatient. On patient's echocardiogram, he had an EF of 44%, with mild diffuse hypokinesia of the left ventricle, no chest pain complaints, ongoing to discharge him on aspirin, statin, Eliquis as above, with a close follow-up with cardiology as outpatient for decision on stress testing versus angiogram For his LILY on CKD, creatinine on discharge 1.5, follow-up with primary care to recheck kidney function in a week For evidence of BPH, discharged on Flomax 0.4 twice daily, referral has been sent for urology He also had evidence of a infrarenal abdominal aortic aneurysm measuring 3.4 cm, I would have him follow-up with Dr. Tapia for monitoring as outpatient Physical Exam Const: COMMON NORMALS: no acute distress and patient oriented x3 Resp: COMMON NORMALS: normal respiratory effort, No retractions, No use of accessory muscles and clear to auscultation bilaterally AUSCULTATION: clear to auscultation bilaterally Cardio: COMMON NORMALS: regular rate, regular rhythm, S1 normal heart sound present and S2 normal heart sound present RATE: regular rate RHYTHM: regular rhythm HEART SOUNDS: S1 normal heart sound present and S2 normal heart sound present GI: COMMON NORMALS: Normal to inspection, nondistended, normoactive bowel sounds present and non-tender Extremity: COMMON NORMALS: no pedal edema Neuro: COMMON NORMALS: patient oriented x3 Psych: COMMON NORMALS: mental status grossly normal Discharge Data Studies Completed and Pending Completed Studies During Hospitalization Category Date Time Status CT abdomen pelvis wo con [id number] Stat Cat Scan 01/27/23 18:[address] head wo con* [id number] Stat Cat Scan 01/27/23 18:42 Completed XR chest 1V [id number] Stat Exams 01/27/23 17:12 Completed CV. echo complete* [id number] Stat Ultrasound 01/27/23 18:30 Completed Pending at discharge Category Date Time Status Blood Culture Stat Lab 01/27/23 19:10 Results Radiology Impressions Chest X-Ray 01/27/23 17:12 IMPRESSION: Minimal left lower lobe atelectasis or infiltrate. Correlate for pneumonia. Abdomen/Pelvis CT 01/27/23 18:03 IMPRESSION: 1. 3.4 cm fusiform infrarenal abdominal aortic aneurysm without rupture. 2. Bilateral nonobstructing renal calyceal stones. 3. No obstructing ureteral stone or hydronephrosis. 4. CT without contrast is insensitive for radiographic detection of pyelonephritis. COMMENTS: Consistent with the [employer]'s Incidental Findings Committee white paper (J Am Narayan Radiol 2018): Any incidental renal lesion less than 1 cm or classified as too small to characterize, or any incidental cystic renal lesion characterized as simple-appearing, is likely benign. No follow-up imaging is recommended for these lesions per consensus recommendations based on imaging criteria. Head CT 01/27/23 18:42 IMPRESSION: No acute intracranial abnormality. Laboratory Results WBC 5.7 10^3/uL (4.0-10.0) 01/30/23 03:02 RBC 3.75 10^6/uL (4.1-5.3) L 01/30/23 03:02 Hgb 10.8 g/dL (11.7-16.6) L 01/30/23 03:02 Hct 33.9 % (42.0-52.0) L 01/30/23 03:02 MCV 90.4 fl (80-94) 01/30/23 03:02 MCH 28.8 pg (28.0-34.0) 01/30/23 03:02 MCHC 31.9 g/dL (30.0-36.0) 01/30/23 03:02 RDW 14.3 % (12.1-15.1) 01/30/23 03:02 Plt Count 194 10^3/cmm (130-400) 01/30/23 03:02 MPV 10.6 fL (7.4-10.4) H 01/30/23 03:02 Neut % (Auto) 73.0 % 01/30/23 03:02 Lymph % (Auto) 16.3 % 01/30/23 03:02 Winston % (Auto) 6.1 % 01/30/23 03:02 Eos % (Auto) 3.5 % 01/30/23 03:02 Baso % (Auto) 0.9 % 01/30/23 03:02 Neut # (Auto) 4.16 10^3/uL (1.8-7.7) 01/30/23 03:02 Lymph # (Auto) 0.9 10^3/uL (0.8-4.8) 01/30/23 03:02 Winston # (Auto) 0.4 10^3/uL (0.2-0.9) 01/30/23 03:02 Eos # (Auto) 0.2 10^3/uL (0.0-0.8) 01/30/23 03:02 Baso # (Auto) 0.1 10^3/uL (0.0-0.1) 01/30/23 03:02 Nucleated RBC % (auto) 0 % 01/30/23 03:02 Nucleated RBCs # 0.0 /100WBC 01/30/23 03:02 PT 15.80 SECONDS (12.1-14.9) H 01/27/23 19:10 INR 1.22 (0.8-1.2) H 01/27/23 19:10 APTT 68.3 SECONDS (23.9-36.7) H 01/28/23 11:01 Sodium 140 mmol/L (136-145) 01/30/23 03:02 Potassium 3.6 mmol/L (3.5-5.1) 01/30/23 03:02 Chloride 110 mmol/L (98-107) H 01/30/23 03:02 Carbon Dioxide 19 mmol/L (22-29) L 01/30/23 03:02 Anion Gap 14.6 (5-19) 01/30/23 03:02 BUN 19 mg/dL (8-23) 01/30/23 03:02 Creatinine 1.5 mg/dL (0.7-1.2) H 01/30/23 03:02 GFR Calculation Not Reportable 01/30/23 03:02 Glucose 95 mg/dL (65-115) 01/30/23 03:02 Estimat Average Glucose 111 01/27/23 16:12 Hemoglobin A1c 5.5 % (4.0-6.0) 01/27/23 16:12 Calculated Osmolality 292 mOsm/kg (285-295) 01/30/23 03:02 Lactic Acid 0.9 mmol/L (0.5-2.2) 01/28/23 04:29 Lactate 2.0 mmol/L (0.5-2.2) 01/27/23 19:10 Calcium 7.5 mg/dL (8.5-10.5) L 01/30/23 03:02 Phosphorus 2.9 mg/dL (2.5-4.5) 01/30/23 03:02 Magnesium 1.4 mg/dL (1.7-2.3) L 01/30/23 03:02 Total Bilirubin 0.3 mg/dL (0.15-1.2) 01/30/23 03:02 AST 13 U/L (0-40) 01/30/23 03:02 ALT 7 U/L (0-41) 01/30/23 03:02 Alkaline Phosphatase 63 U/L (40-130) 01/30/23 03:02 Creatine Kinase 159 U/L (39-308) 01/29/23 04:39 Troponin T Gen 5 ng/L 22 ng/L (0-15) H 01/27/23 16:07 Troponin T 120 Minute 20.63 ng/L (0-15) H 01/27/23 19:10 Delta Troponin T Not Reportable 01/27/23 19:10 C-Reactive Protein 115.8 mg/L (0.0-4.9) H 01/27/23 19:10 Total Protein 5.6 g/dL (6.6-8.7) L 01/30/23 03:02 Albumin 2.6 g/dL (3.5-5.2) L 01/30/23 03:02 Globulin 3.0 g/dL (1.3-4.6) 01/30/23 03:02 Triglycerides 66 mg/dL (0-150) 01/27/23 19:10 Cholesterol 138 mg/dL (0-200) 01/27/23 19:10 LDL Cholesterol, Calc 95 mg/dL (50-129) 01/27/23 19:10 HDL Cholesterol 30 mg/dL (60-100) L 01/27/23 19:10 LDL/HDL Ratio 3.17 RATIO (0.00-3.22) 01/27/23 19:10 Cholesterol/HDL Ratio 4.60 mg/dL (1.0-5.00) 01/27/23 19:10 Procalcitonin 0.43 ng/mL (0-0.5) 01/27/23 19:10 TSH 3.85 uIU/mL (0.27-4.20) 01/27/23 19:10 Urine Color Light yellow (Yellow) 01/27/23 15:50 Urine Appearance Cloudy (CLEAR) A 01/27/23 15:50 Urine pH 8 (5-7) H 01/27/23 15:50 Ur Specific [place] 1.010 (1.005-1.030) 01/27/23 15:50 Urine Protein 1+ (Negative) H 01/27/23 15:50 Urine Glucose (UA) Norm (Normal) 01/27/23 15:50 Urine Ketones Negative (Negative) 01/27/23 15:50 Urine Blood 3+ (Negative) H 01/27/23 15:50 Urine Nitrate Positive (Negative) H 01/27/23 15:50 Urine Bilirubin Neg (Negative) 01/27/23 15:50 Prot Sulfosalicylic Acd Positive (Negative) 01/27/23 15:50 Urine Urobilinogen Neg mg/dL (Negative) 01/27/23 15:50 Ur Leukocyte Esterase 2+ (Negative) H 01/27/23 15:50 Urine RBC 5-10 /hpf (0-2) H 01/27/23 15:50 Urine WBC 80-100 /hpf (0-5) H 01/27/23 15:50 Ur Squamous Epith Cells None /hpf (0-5) 01/27/23 15:50 Amorphous Sediment Not Reportable 01/27/23 15:50 Urine Bacteria 3+ /hpf (NONE) H 01/27/23 15:50 Vitals Last Vital Signs Temp 97.7 F 01/30/23 08:29 Pulse 103 H 01/30/23 08:29 Resp 18 01/30/23 08:29 BP 130/87 01/30/23 08:29 Pulse Ox 93 01/30/23 04:00 O2 Del Method 01/30/23 04:00 Discharge Plan Discharge Patient Disposition: Home Condition: Stable Prescriptions: New magnesium L-lactate [Magtab] 84 mg Tablet Extended Release 84 mg PO DAILY 30 Days Qty: 30 0RF Eliquis 5 mg Tablet 5 mg PO Q12H 30 Days Qty: 60 0RF aspirin 81 mg Tablet,Delayed Release (Dr/Ec) 81 mg PO DAILY 30 Days Qty: 30 0RF cefdinir 300 mg capsule 300 mg PO BID 5 Days Qty: 10 0RF diltiazem HCl [Cardizem] 120 mg tablet 120 mg PO BID 30 Days Qty: 60 0RF Continued calcitriol 0.5 mcg capsule 0.5 mcg PO BID levothyroxine 125 mcg Tablet 125 mcg PO DAILY tamsulosin 0.4 mg capsule 0.4 mg PO BID 30 Days Qty: 60 0RF atorvastatin 20 mg tablet 20 mg PO DAILY 30 Days Qty: 30 0RF fluoxetine 40 mg capsule 40 mg PO DAILY 30 Days Qty: 30 0RF Discontinued amlodipine 10 mg tablet 10 mg PO DAILY lisinopril-hydrochlorothiazide 20-25 mg tablet 1 tab PO DAILY Discharge Orders: Discharge Order (Routine); Ordered 01/30/23 Ordered By: Russell Kelly Referrals: Harvey Mcfadden [Referring] - 2 weeks Joe Hernandez MD [Primary Care Provider] - (Please call Dr. Hernandez's Office on Wednesday at [phone] to schedule a follow up appointment for 2 weeks. ) Michael Valerio M.D [Physician] - 4-7 days Manny Tapia MD [Physician] - 2 months (aaa monitoring) Discharge Diet: Cardiac Discharge Activity: Resume usual activity Patient Instructions: Apixaban (By mouth), A-fib (Atrial Fibrillation) (DC), Opioid Safety, Benign Prostatic Hypertrophy (BPH) Activity Restrictions/Additional Instructions: - Please take antibiotics as prescribed -Please have your primary care provider recheck your potassium, your kidney function, and your hemoglobin next week -Eliquis is a strong blood thinner, if you develop bloody or black stools go to the emergency room -See cardiology in 1 week -If you have any chest pain, palpitations, go to the emergency room Discharge Attestations Time Spent in Discharge Care*: greater than 30 min Quality Metrics Clinical Quality Measures [ No reported AMI, CVA or VTE this stay] Coding Level of Care Code 32664 Total time (in minutes) for Discharge: 40 Diagnoses SIRS (systemic inflammatory response syndrome) R65.10 Hypokalemia E87.6 Acute kidney injury N17.9 Pyelonephritis N12 Acute encephalopathy G93.40 Sepsis A41.9 Atrial fibrillation with RVR I48.91 Acute UTI (urinary tract infection) N39.0
--- NOTE | 2023-01-30 11:15 | PC.SOCIAL ---
IMM Update pg 2 of IMM updated and reviewed w/ patient. Copy provided and copy dated, initialed and placed in chart.
== END 2023-01-30 14:00 | disposition home or self-care (01) | DRG 872 ==
LOC: ER 18:09 → CSU 20:39
PROVIDERS: Physician Assistant; Admitting Provider Family Medicine; Emergency Provider Family Medicine; PCP Family Medicine; Visit Provider Family Medicine
DX: A41.89 Other specified sepsis (principal); N10 Acute pyelonephritis; G93.49 Other encephalopathy; N17.9 Acute kidney failure, unspecified; I48.91 Unspecified atrial fibrillation; N40.1 Benign prostatic hyperplasia with lower urinary tract symptoms; R35.0 Frequency of micturition; Z87.440 Personal history of urinary (tract) infections; I12.9 Hypertensive chronic kidney disease with stage 1 through stage 4 chronic kidney disease, or unspecified chronic kidney disease; N18.9 Chronic kidney disease, unspecified; E86.0 Dehydration; I71.43 Infrarenal abdominal aortic aneurysm, without rupture; E87.6 Hypokalemia; F41.9 Anxiety disorder, unspecified
CPT/HCPCS: 36415; 70450; 71045; 74176; 80053; 80061; 81001; 82550; 83036; 83605; 83735; 84100; 84145; 84443; 84484; 85025; 85610; 85730; 86140; 87040; 87077; 87086; 87186; 93005; 93306; 94664; 96365; 96375; 96376; 97116; 97161; 97166; 97530; 99285; C9113; J0696; J1644; J2543; J3475; J3490; J7030

== ENCOUNTER → 2023-02-25 13:03 | Outpatient (BNVA) | payer MEDICARE, OTHER, SELFPAY | PROVIDERS: PCP Family Medicine; Visit Provider Internal Medicine | DX: I48.91 Unspecified atrial fibrillation (principal); I11.0 Hypertensive heart disease with heart failure; I50.9 Heart failure, unspecified; Z87.891 Personal history of nicotine dependence; Z79.82 Long term (current) use of aspirin | CPT/HCPCS: 99204 ==

== ENCOUNTER → 2023-05-18 07:50 | Outpatient (BNVA) | payer MEDICARE, OTHER, SELFPAY | PROVIDERS: PCP Family Medicine; Visit Provider Podiatrist Foot & Ankle Surgery | DX: M76.61 Achilles tendinitis, right leg (principal); M76.71 Peroneal tendinitis, right leg; M21.612 Bunion of left foot | CPT/HCPCS: 73630; 97760; 99204; L4361 ==

== ENCOUNTER 2023-05-18 11:02 | Outpatient (CLI) | payer MEDICARE, OTHER, SELFPAY | END 2023-05-18 11:03 | disposition home or self-care (01) | LOC: SPT 11:03 | PROVIDERS: PCP Family Medicine; Visit Provider Podiatrist Foot & Ankle Surgery | DX: M76.61 Achilles tendinitis, right leg (principal); M76.71 Peroneal tendinitis, right leg; M21.612 Bunion of left foot | CPT/HCPCS: 97760; 99204; L4361 ==

== ENCOUNTER → 2023-06-01 08:42 | Outpatient (BNVA) | payer MEDICARE, OTHER, SELFPAY | PROVIDERS: PCP Family Medicine; Visit Provider Podiatrist Foot & Ankle Surgery | DX: M76.61 Achilles tendinitis, right leg (principal); M79.672 Pain in left foot | CPT/HCPCS: 99213 ==

== ENCOUNTER → 2023-08-16 14:28 | Outpatient (BNVA) | payer MEDICARE, OTHER, SELFPAY | PROVIDERS: PCP Family Medicine; Visit Provider Nurse Practitioner Family | DX: I50.9 Heart failure, unspecified (principal); I48.91 Unspecified atrial fibrillation; I45.10 Unspecified right bundle-branch block; Z87.891 Personal history of nicotine dependence | CPT/HCPCS: 36415; 80048; 83880; 93005; 99214 ==

== ENCOUNTER 2023-08-18 11:54 | Outpatient (CLI) | payer MEDICARE, OTHER, SELFPAY ==
--- NOTE | 2023-08-18 12:15 | USCV_ITS ---
Sam Vogt Age: 72 Gender: M : 1950 Exam Date: 08/18/2023 12:29 Ordering Phys: Rika Renteria Technologist: DELMIS Exam Location: [facility] Indication: chf BP: 125 / 88 HR: 68 Rhythm: Sinus Technical Quality: Good MEASUREMENTS (Male / Female) Normal Values 2D ECHO LV Chamber Size 5.8 cm RV Chamber Size 3.9 cm LVOT Diameter 2.0 cm LV Ejection Fraction MOD 2C 23.9 % LV Ejection Fraction 2C AL 21.7 % LA Diameter 5.1 cm LA Width 4.5 cm LA Height 6.3 cm RA Width 4.1 cm RA Height 6.1 cm Aorta at Sinotubular Diameter 2.3 cm IVC Diameter 2.4 cm M-MODE Aortic Annulus Diameter 3.3 cm LA Ao Ratio MM 1.8 MV E Point Septal Separation 3.2 cm DOPPLER AV Peak Velocity 150.0 cm/s LVOT Peak Velocity 72.0 cm/s AV Area Cont Eq vti 1.6 cm squared AV Area Cont Eq pk 1.5 cm squared MV Area PHT 2.0 cm squared MV E' Velocity 85.0 cm/s Mitral E to MV E' Ratio 39.4 Mitral E to LV E' Lateral Ratio 34.5 Mitral E to LV E' Septal Ratio 47.3 TR Peak Velocity 178.6 cm/s TR Peak Gradient 12.8 mmHg TR Mean Velocity 175.5 cm/s TR Mean Gradient 13.3 mmHg TR Velocity Time Integral 68.0 cm TV Peak E Velocity 77.0 cm/s Right Atrial Pressure 3.0 mmHg Pulmonary Artery Systolic Pressu 15.8 mmHg PV Peak Velocity 74.0 cm/s FINDINGS Left Ventricle Left ventricle is dilated. LV systolic function is severely reduced with EF of 10 to 15%. Severe global hypokinesis. Right Ventricle RV is hypokinetic Right Atrium Dilated Left Atrium Dilated. Left atrial thrombus seen Mitral Valve Moderate to severe mitral valve calcification. Mild mitral regurgitation. Aortic Valve Aortic valve is thickened and calcified. No significant stenosis. Tricuspid Valve Mild tricuspid regurgitation. Pulmonary artery systolic pressure is normal. Pulmonic Valve Mild pulmonic regurgitation. Pericardium Normal Aorta Normal in size IVC Dilated CONCLUSIONS Left ventricle is dilated. LV systolic function is severely reduced with EF of 10 to 15%. RV is hypokinetic. Biatrial dilation Left atrial thrombus is seen. Moderate to severe mitral calcification. Mild mitral regurgitation Mild tricuspid regurgitation Mild pulmonic regurgitation IVC is dilated. Compared to prior echocardiogram from 01/2023, LV systolic function has decreased and is severely reduced now and left atrial thrombus was seen. Michael Valerio MD (Electronically Signed) Final Date: 23 August 2023 12:20 S
== END 2023-08-18 11:55 | disposition home or self-care (01) ==
PROVIDERS: PCP Family Medicine; Visit Provider Nurse Practitioner Family
DX: I11.0 Hypertensive heart disease with heart failure (principal); I50.23 Acute on chronic systolic (congestive) heart failure; I48.91 Unspecified atrial fibrillation; I08.8 Other rheumatic multiple valve diseases; I45.10 Unspecified right bundle-branch block; Z87.440 Personal history of urinary (tract) infections; Z87.891 Personal history of nicotine dependence; Z79.899 Other long term (current) drug therapy
CPT/HCPCS: 36415; 80048; 83880; 93005; 93306; 99214

== ENCOUNTER → 2023-08-27 10:28 | Outpatient (BNVA) | payer MEDICARE, OTHER, SELFPAY | PROVIDERS: PCP Family Medicine; Visit Provider Nurse Practitioner Family | DX: I50.9 Heart failure, unspecified (principal); I48.91 Unspecified atrial fibrillation | CPT/HCPCS: 36415; 80048; 83880; 85025 ==

== ENCOUNTER → 2023-08-27 10:28 | Outpatient (BNVA) | payer MEDICARE, OTHER, SELFPAY | PROVIDERS: PCP Family Medicine; Visit Provider Internal Medicine | DX: I48.91 Unspecified atrial fibrillation (principal); I50.9 Heart failure, unspecified; I51.3 Intracardiac thrombosis, not elsewhere classified; Z87.891 Personal history of nicotine dependence; Z79.01 Long term (current) use of anticoagulants | CPT/HCPCS: 99214 ==

== ENCOUNTER 2023-12-02 09:49 | Emergency (ER) | payer MEDICARE, OTHER, SELFPAY ==
[2023-12-02] VITALS (8 sets, daily range): BP systolic 133–140; BP diastolic 104; PULSE 89–140; RESP 16–20; TEMP 36.4; O2SAT 94–99
--- NOTE | 2023-12-02 10:01 | ED_ITS ---
HPI - Abdominal Pain 2 General: Chief Complaint: Urogenital-Male Stated Complaint: urine issues Time Seen by Provider: 12/02/23 09:53 Source: patient Mode of arrival: ambulatory Limitations: no limitations History of Present Illness: 72-year-old male who states he has had s ome abdominal pain along with dysuria and hematuria states concerned that he has a urinary tract infection he did have a recent kidney stone he had had lithotripsy and a stent placed 2 weeks ago at [place]. Denies any fever denies any vomiting or diarrhea. Associated Symptoms: Reports dysuria and hematuria; Denies chills, diarrhea, fever(s), nausea and vomiting Review of Systems 2 Const: Denies: fever(s), chills, body aches or change in appetite ENMT: Denies: throat pain or dental pain Card: Denies: chest pain Resp: Denies: dyspnea GI: Reports: abdominal pain; Denies: nausea, vomiting or diarrhea : Reports: dysuria and hematuria Musc: Denies: neck pain or back pain Skin/Breast: Denies: rash Neuro: Denies: headache(s) PFSH ED 2 PFSH: Medical History History of recurrent UTIs History of hypertension History of BPH Surgical History History of appendectomy History of hernia surgery H/O mitral valve repair Family History Mother CAD (coronary artery disease) Rheumatic heart disease Father CAD (coronary artery disease) Social History Smoking and tobacco/nicotine status: former use of tobacco/nicotine Alcohol intake: never Substance/Drug Use: never Physical Exam 2 Const: COMMON NORMALS: no acute distress, patient oriented x3 and healthy appearing HENMT: COMMON NORMALS: normocephalic and atraumatic HEAD & SCALP: n ormocephalic and atraumatic Neck/C-Spine: COMMON NORMALS: full ROM and supple Chest: COMMONS NORMALS: normal inspection of the chest and normal palpation of entire chest wall Resp: COMMON NORMALS: normal respiratory effort, No retractions, No use of accessory muscles and clear to auscultation bilaterally AUSCULTATION: clear to auscultation bilaterally Cardio: COMMON NORMALS: regular rate, regular rhythm and No murmurs present (Cardio) RATE: regular rate RHYTHM: regular rhythm GI: COMMON NORMALS: Normal to inspection, nondistended, normoactive bowel sounds present, Soft to palpation, non-tender and no masses PALPATION: Yes Soft to palpation Extremity: COMMON NORMALS: normal to inspection and full ROM Neuro: COMMON NORMALS: patient oriented x3, moves all extremities and no focal motor deficits Psych: COMMON NORMALS: mental status grossly normal, Normal thought process present and cooperative THOUGHT PROCESS: Normal thought process present Skin: COMMON NORMALS: no rashes or lesions noted and no wounds GENERAL SKIN EXAM: no rashes or lesions noted Course 2 Vital Signs: Vital signs: Vital Signs Temperature 97.5 F L 12/02/23 09:54 Pulse Rate 89 12/02/23 09:54 Respiratory Rate 20 H 12/02/23 09:54 Blood Pressure 133/104 12/02/23 09:54 Pulse Oximetry 99 12/02/23 09:54 Oxygen Delivery Me thod Room Air 12/02/23 09:54 MDM - Abdominal Pain Medical Decision Making Patient presents here with dysuria he is found to have a kidney stone on the left along with urinary tract infection and a acute kidney injury with elevated creatinine patient given IV antibiotics along with fluids here and I spoke to [facility] will transfer there for higher level of care of urology. Medical Records I reviewed the patient's medical records. Lab Data I reviewed the patient's lab results. 12/02/23 10:22 12/02/23 10:22 Labs/Radiology: Radiology Impressions Abdomen/Pelvis CT 12/02/23 10:17 IMPRESSION: 1. Interval development of left-sided hydronephrosis/hydroureter. Obstructing oval-shaped stone measuring up to 6 mm at the left ureterovesical junction. 2. Right-sided double-J ureteral stent noted in appropriate position. Right-sided perinephric/periureteral fat stranding. 3. Large hiatal hernia noted. 4. Enlarging right inguinal lymph node measuring up to 1.8 cm in the short axis, increased in size compared to prior exam when it measured up to 1.2 cm. 5. Infrarenal abdominal aortic aneurysm measuring up to 3.6 cm, slightly increased in size compared to prior exam. COMMENTS: Consistent with the [place] [employer]'s Incidental Findings Committee white paper (J Am Narayan Radiol 2018): Any incidental renal lesion less than 1 cm or classified as too small to characterize, or any incidental cystic renal lesion characterized as simple-appearing, is likely benign. No follow-up imaging is recommended for these lesions per consensus recommendations based on imaging criteria. Laboratory Results WBC 9.61 10^3/uL (3.29-11.43) 12/02/23 10:22 RBC 5.01 10^6/uL (3.85-5.65) 12/02/23 10:22 Hgb 14.00 g/dL (11.27-16.99) 12/02/23 10:22 Hct 43.8 % (37-53) 12/02/23 10:22 MCV 87.4 fl (82-101) 12/02/23 10:22 MCH 27.9 pg (27-33) 12/02/23 10:22 MCHC 32.0 g/dL (30-55) 12/02/23 10:22 RDW 16.8 % (12.1-15.1) H 12/02/23 10:22 Plt Count 247 10^3/cmm (157-399) 12/02/23 10:22 MPV 11.3 fL (7.4-10.4) H 12/02/23 10:22 Neut % (Auto) 83.8 % 12/02/23 10:22 Lymph % (Auto) 9.1 % 12/02/23 10:22 [place] % (Auto) 6.0 % 12/02/23 10:22 Eos % (Auto) 0.3 % 12/02/23 10:22 Baso % (Auto) 0.4 % 12/02/23 10:22 Neut # (Auto) 8.05 10^3/uL (1.8-7.7) H 12/02/23 10:22 Lymph # (Auto) 0.9 10^3/uL (0.8-4.8) 12/02/23 10:22 [place] # (Auto) 0.6 10^3/uL (0.2-0.9) 12/02/23 10:22 Eos # (Auto) 0.0 10^3/uL (0.0-0.8) 12/02/23 10:22 Baso # (Auto) 0.0 10^3/uL (0.0-0.1) 12/02/23 10:22 Nucleated RBC % (auto) 0 % 12/02/23 10:22 Nucleated RBCs # 0.0 /100WBC 12/02/23 10:22 PT 19.10 SECONDS (12.1-14.9) H 12/02/23 10:22 INR 1.55 (0.8-1.2) H 12/02/23 10:22 Sodium 140 mmol/L (136-145) 12/02/23 10:22 Potassium 4.3 mmol/L (3.5-5.1) 12/02/23 10:22 Chloride 101 mmol/L (98-107) 12/02/23 10:22 Carbon Dioxide 16 mmol/L (22-29) L 12/02/23 10:22 Anion Gap 27.3 (5-19) H 12/02/23 10:22 BUN 43 mg/dL (8-23) H 12/02/23 10:22 Creatinine 3.8 mg/dL (0.7-1.2) H 12/02/23 10:22 GFR Calculation Not Reportable 12/02/23 10:22 Glucose 142 mg/dL (65-115) H 12/02/23 10:22 Calculated Osmolality 303 mOsm/kg (285-295) H 12/02/23 10:22 Calcium 8.6 mg/dL (8.5-10.5) 12/02/23 10:22 Total Bilirubin 1.0 mg/dL (0.15-1.2) 12/02/23 10:22 AST 82 U/L (0-40) H 12/02/23 10:22 ALT 111 U/L (0-41) H 12/02/23 10:22 Alkaline Phosphatase 97 U/L (40-130) 12/02/23 10:22 Total Protein 6.8 g/dL (6.6-8.7) 12/02/23 10:22 Albumin 3.6 g/dL (3.5-5.2) 12/02/23 10:22 Globulin 3.2 g/dL (1.3-4.6) 12/02/23 10:22 Lipase 11 U/L (13-60) L 12/02/23 10:22 Urine Color Red (Yellow) A 12/02/23 11:26 Urine Appearance Cloudy (CLEAR) A 12/02/23 11:26 Urine pH 5 (5-7) 12/02/23 11:26 Ur Specific [place] 1.020 (1.005-1.030) 12/02/23 11:26 Urine Protein 3+ (Negative) H 12/02/23 11:26 Urine Glucose (UA) Norm (Normal) 12/02/23 11:26 Urine Ketones 1+ (Negative) H 12/02/23 11:26 Urine Blood 3+ (Negative) H 12/02/23 11:26 Urine Nitrate Positive (Negative) H 12/02/23 11:26 Urine Bilirubin 1+ (Negative) H 12/02/23 11:26 Urine Urobilinogen 1 mg/dL (Negative) H 12/02/23 11:26 Ur Leukocyte Esterase 2+ (Negative) H 12/02/23 11:26 Urine RBC Too numerous to cnt /hpf (0-2) H 12/02/23 11:26 Urine WBC 40-55 /hpf (0-5) H 12/02/23 11:26 Ur Squamous Epith Cells 0-4 /hpf (0-5) H 12/02/23 11:26 Ur Transition Epith Cell 0-4 /hpf 12/02/23 11:26 Amorphous Sediment Not Reportable 12/02/23 11:26 Urine Bacteria Trace /hpf (NONE) 12/02/23 11:26 Hyaline Casts 0-4 /lpf H 12/02/23 11:26 Urine Mucus 1+ /hpf 12/02/23 11:26 All radiology interpretation(s) finalized by discharge Discharge Plan Discharge Patient Disposition: Xfer Short-Term Hosp Clinical Impression: Urinary tract infection, Kidney stone, Acute kidney injury Condition: Stable Prescriptions: No Action Eliquis 5 mg tablet 5 mg PO BID Qty: 180 3RF (DME) CAM Boot See Rx Instructions .Route .MEDSUPPLY Qty: 1 0RF Rx Instructions: As directed omeprazole 40 mg capsule,delayed release(DR/EC) 40 mg PO DAILY amlodipine 10 mg tablet 10 mg PO DAILY diltiazem HCl 60 mg tablet 60 mg PO BID Qty: 180 3RF levothyroxine 150 mcg tablet 150 mcg PO DAILY isosorbide dinitrate 10 mg tablet 10 mg PO TID hydralazine 25 mg tablet 25 mg PO TID propranolol 40 mg tablet 40 mg PO BID metoprolol succinate 25 mg tablet extended release 24 hr 25 mg PO 6XD calcitriol 0.5 mcg capsule 0.5 mcg PO BID fluoxetine 40 mg capsule 40 mg PO DAILY 30 Days Qty: 30 0RF atorvastatin 20 mg tablet 20 mg PO DAILY 30 Days Qty: 30 0RF tamsulosin 0.4 mg capsule 0.4 mg PO BID 30 Days Qty: 60 0RF Referrals: Joe Hernandez MD [Primary Care Provider] - Coding Level of Care Code ED Motor Assembler for Reyg Butch
--- NOTE | 2023-12-02 10:17 | CTR_ITS ---
PROCEDURE INFORMATION: Exam: CT Abdomen And Pelvis Without Contrast Exam date and time: 12/02/2023 11:07 AM Age: 72 years old Clinical indication: Other: Hematuria; Abdominal pain; Flank; Left; Prior surgery; Surgery date: 6+ months; Surgery type: Stent in right kidney TECHNIQUE: Imaging protocol: Computed tomography of the abdomen and pelvis without contrast. Radiation optimization: All CT scans at this facility use at least one of these dose optimization techniques: automated exposure control; mA and/or kV adjustment per patient size (includes targeted exams where dose is matched to clinical indication); or iterative reconstruction. COMPARISON: CT abdomen pelvis con [id number] 01/27/2023 8:34 PM RADIATION DOSE METRICS: Total DLP (mGy-cm): 397.25 FINDINGS: Lungs: Mild bronchiectasis. Thin walled air-filled pneumatocele in the anterior basal segment right lower lobe. Thin walled air-filled pneumatocele in the posterior basal segment right lower lobe. Heart: The heart is enlarged for size. Coronary arteries: Coronary artery calcifications noted. Mediastinal space: Postsurgical changes in the mediastinum. Liver: Cyst versus hemangioma in hepatic segment 6. Gallbladder and bile ducts: The gallbladder appears unremarkable. No intra- or extra-hepatic biliary ductal dilatation. Pancreas: The pancreas appears normal. Spleen: The spleen appears normal. Adrenal glands: The adrenals appear normal. Kidneys and ureters: Right-sided double-J ureteral stent noted in appropriate position. Right-sided perinephric/periureteral fat stranding. Fluid density bilateral renal cysts noted. Interval development of left-sided hydronephrosis/hydroureter. Obstructing oval-shaped stone measuring up to 6 mm at the left ureterovesical junction. Stomach and bowel: Large hiatal hernia noted. The stomach otherwise appears unremarkable. The small bowel loops are not abnormally dilated. The large bowel loops are not abnormally dilated. Colonic diverticulosis without signs of acute diverticulitis. Appendix: No signs of appendicitis. Intraperitoneal space: No ascites or significant fluid collection. Vasculature: Infrarenal abdominal aortic aneurysm measuring up to 3.6 cm, slightly increased in size compared to prior exam. Lymph nodes: Enlarging right inguinal lymph node measuring up to 1.8 cm in the short axis, increased in size compared to prior exam when it measured up to 1.2 cm. Urinary bladder: The urinary bladder is not well distended, therefore not well evaluated. Reproductive: Unremarkable as visualized. Bones/joints: Partially visualized median sternotomy wires noted. Soft tissues: Unremarkable. CT/CT kidney stone [id number] IMPRESSION: 1. Interval development of left-sided hydronephrosis/hydroureter. Obstructing oval-shaped stone measuring up to 6 mm at the left ureterovesical junction. 2. Right-sided double-J ureteral stent noted in appropriate position. Right-sided perinephric/periureteral fat stranding. 3. Large hiatal hernia noted. 4. Enlarging right inguinal lymph node measuring up to 1.8 cm in the short axis, increased in size compared to prior exam when it measured up to 1.2 cm. 5. Infrarenal abdominal aortic aneurysm measuring up to 3.6 cm, slightly increased in size compared to prior exam. COMMENTS: Consistent with the [employer]'s Incidental Findings Committee white paper (J Am Narayan Radiol 2018): Any incidental renal lesion less than 1 cm or classified as too small to characterize, or any incidental cystic renal lesion characterized as simple-appearing, is likely benign. No follow-up imaging is recommended for these lesions per consensus recommendations based on imaging criteria.
[2023-12-02 10:34] LABS: Basophils % 0.4 %; Eosinophils % 0.3 %; Hematocrit 43.8 % (37-53); Lymphocytes # 0.9 10^3/uL (0.8-4.8); Lymphocytes % 9.1 %; Mean Corpuscular Hemoglobin 27.9 pg (27-33); Mean Corpuscular Volume 87.4 fl (82-101); Mean Platelet Volume 11.3 fL (7.4-10.4); Monocytes # 0.6 10^3/uL (0.2-0.9); Neutrophils # 8.05 10^3/uL (1.8-7.7); Neutrophils % 83.8 %; Nucleated Red Blood Cells % 0 %; Platelet Count 247 10^3/cmm (157-399); Red Blood Count 5.01 10^6/uL (3.85-5.65); Red Cell Distribution Width 16.8 % (12.1-15.1); White Blood Count 9.61 10^3/uL (3.29-11.43)
[2023-12-02 10:54] LABS: Alanine Aminotransferase 111 U/L (0-41); Albumin Level 3.6 g/dL (3.5-5.2); Alkaline Phosphatase 97 U/L (40-130); Anion Gap 27.3 (5-19); Aspartate Amino Transferase 82 U/L (0-40); Blood Urea Nitrogen 43 mg/dL (8-23); Calcium 8.6 mg/dL (8.5-10.5); Carbon Dioxide 16 mmol/L (22-29); Chloride 101 mmol/L (98-107); Globulin 3.2 g/dL (1.3-4.6); Glucose 142 mg/dL (65-115); Lipase 11 U/L (13-60); Osmolality Calculated 303 mOsm/kg (285-295); Potassium 4.3 mmol/L (3.5-5.1); Sodium 140 mmol/L (136-145); Total Protein 6.8 g/dL (6.6-8.7)
--- NOTE | 2023-12-02 10:58 | PC.PHAR ---
PT HAS RX FOR ENTRESTO EXT MED SHOWS 08/18/23 NEW RX. LOCAL PHARMACY AND MAIL ORDER HAVE NEVER RECEIVED OR FILLED THIS ORDER. PT DENIES TAKING IT. 12/02/23....REMOVED FROM MEDICATION LIST.
[2023-12-02] MEDS: sodium chloride 0.9% 1,000 ML 999 ML IV (11:00)
[2023-12-02 11:52] LABS: Bilirubin Urine 1+ (Negative); Blood Urine 3+ (Negative); Glucose Urine UA Norm (Normal); Ketones Urine 1+ (Negative); Nitrate Urine Positive (Negative); Protein Urine 3+ (Negative); Urine Appearance Cloudy (CLEAR); Urine Color Red (Yellow); pH Urine 5 (5-7)
[2023-12-02 11:53] LABS: Add Urine Microscopic? YES; Leukocyte Esterase Urine 2+ (Negative); Urobilinogen Urine 1 mg/dL (Negative)
[2023-12-02 11:59] LABS: Add Urine Culture? Yes; Bacteria Urine TRACE /hpf; Hyaline Casts Urine 0-4 /lpf; Mucus Urine 1+ /hpf; RBC Urine TOO NUMEROUS TO CNT /hpf (0-2); Squamous Epithelial Cell Urine 0-4 /hpf (0-5); Transitional Epi Cells Urine 0-4 /hpf; WBC Urine 40-55 /hpf (0-5)
[2023-12-02] MEDS: cefTRIAXone 1,000 MG in sodium chloride 0.9% (plus) 50 ML 100 MG IV (12:36)
[2023-12-02 12:44] LABS: INR 1.55 (0.8-1.2)
[2023-12-02] MEDS: dilTIAZem 5 mg/mL SDV 5 mL 15 MG IVP (14:32)
== END 2023-12-02 14:37 | disposition short-term general hospital (02) ==
PROVIDERS: Emergency Provider Emergency Medicine; PCP Family Medicine
DX: N39.0 Urinary tract infection, site not specified (principal); N20.0 Calculus of kidney; N17.9 Acute kidney failure, unspecified; Z79.01 Long term (current) use of anticoagulants; Z87.891 Personal history of nicotine dependence; I10 Essential (primary) hypertension; Z87.440 Personal history of urinary (tract) infections
CPT/HCPCS: 36415; 74176; 80053; 81001; 83690; 85025; 85610; 87086; 96365; 96375; 99285; J0696; J3490; J7030

== ENCOUNTER 2023-12-27 09:05 | Emergency (ER) | payer MEDICARE, SELFPAY ==
[2023-12-27] VITALS (13 sets, daily range): BP systolic 136–162; BP diastolic 85–129; PULSE 102–124; RESP 16–20; TEMP 35.9; O2SAT 93–98; BMI 22.8
--- NOTE | 2023-12-27 09:11 | ECG_ITS ---
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 Measurements Intervals [place] Rate: 104 P: 0 DC: 0 QRS: 69 QRSD: 144 T: 35 QT: 384 QTc: 506 Interpretive Statements ATRIAL FIBRILLATION WITH RAPID VENTRICULAR RESPONSE WITH ABERRANT CONDUCTION OR VENTRICULAR PREMATURE COMPLEXES RIGHT BUNDLE BRANCH BLOCK [120+ ms QRS DURATION, UPRIGHT V1, 40+ ms S IN I/aVL/V4/V5/V6] MODERATE T-WAVE ABNORMALITY, CONSIDER LATERAL ISCHEMIA [-0.1+ mV T-WAVE IN I/aVL/V5/V6] Compared to ECG 08/18/2023 15:11:40 Aberrant conduction of supraventricular beat(s) now present Ventricular premature complex(es) now present T-wave abnormality now present Possible ischemia now present Electronically Signed On 12-27-2023 9:48:56 ORGANISATION AND METHODS ANALYST by Michael Valerio M.D. [id number]
--- NOTE | 2023-12-27 10:17 | PC.PHAR ---
PT HAS NEW MED LIST-DILTIAZEM HCL 60MG DISCONTINUED. METOPROLOL CHANGED TO ER 50 MG DAILY AND MAG LACT 84MG ADDED.
--- NOTE | 2023-12-27 10:39 | XRR_ITS ---
PROCEDURE INFORMATION: Exam: XR Chest Exam date and time: 12/27/2023 10:49 AM Age: 73 years old Clinical indication: Dyspnea and shortness of breath; Additional info: Dyspnea/cough TECHNIQUE: Imaging protocol: Radiologic exam of the chest. Views: 1 view. COMPARISON: CR (CHEST, ) 01/27/2023 5:31 PM FINDINGS: Lungs: No significant active pathology. Pleural spaces: See Heart/Mediastinum finding. Heart/Mediastinum: Interval increase in cardiac silhouette.No pleural effusion. Findings compatible with hiatal hernia also seen on CT of 12/02/2023. Bones/joints: Prior median sternotomy. Prior right shoulder surgery. XR/XR chest 1V portable [id number] IMPRESSION: Interval increase in cardiac silhouette, specificity of which is limited by AP technique.
[2023-12-27 11:08] LABS: Basophils # 0.1 10^3/uL (0.0-0.1); Basophils % 1.3 %; Eosinophils # 0.1 10^3/uL (0.0-0.8); Eosinophils % 3.5 %; Hematocrit 38.5 % (37-53); Lymphocytes # 0.7 10^3/uL (0.8-4.8); Lymphocytes % 19.1 %; Mean Corpuscular HGB Conc 31.2 g/dL (30-55); Mean Corpuscular Hemoglobin 27.5 pg (27-33); Mean Corpuscular Volume 88.3 fl (82-101); Mean Platelet Volume 11.1 fL (7.4-10.4); Monocytes # 0.4 10^3/uL (0.2-0.9); Monocytes % 11.4 %; Neutrophils # 2.42 10^3/uL (1.8-7.7); Neutrophils % 64.4 %; Nucleated Red Blood Cells % 0 %; Platelet Count 238 10^3/cmm (157-399); Red Blood Count 4.36 10^6/uL (3.85-5.65); Red Cell Distribution Width 15.7 % (12.1-15.1); White Blood Count 3.76 10^3/uL (3.29-11.43)
[2023-12-27 11:27] LABS: Alanine Aminotransferase 42 U/L (0-41); Albumin Level 3.5 g/dL (3.5-5.2); Alkaline Phosphatase 98 U/L (40-130); Anion Gap 18.1 (5-19); Aspartate Amino Transferase 24 U/L (0-40); Blood Urea Nitrogen 18 mg/dL (8-23); Calcium 8.1 mg/dL (8.5-10.5); Carbon Dioxide 21 mmol/L (22-29); Chloride 106 mmol/L (98-107); Globulin 3.2 g/dL (1.3-4.6); Glucose 93 mg/dL (65-115); Osmolality Calculated 294 mOsm/kg (285-295); Potassium 4.1 mmol/L (3.5-5.1); Sodium 141 mmol/L (136-145); Total Bilirubin 0.6 mg/dL (0.15-1.2); Total Protein 6.7 g/dL (6.6-8.7)
--- NOTE | 2023-12-27 12:24 | ED_ITS ---
HPI - SOB/Dyspnea 2 General: Chief Complaint: Shortness of Breath/Dyspnea Stated Complaint: SOB Time Seen by Provider: 12/27/23 09:54 Source: patient Mode of arrival: ambulatory History of Present Illness: HPI Narrative: 73-year-old male presents emergency room with complaints of shortness of breath. Patient has a history of severe cardiomyopathy with an EF of 10 to 15% he supposed to be on a LifeVest but stopped using it he was explained the risks by cardiology as documented in their office notes. Recent echo showed a left atrial thrombus he had been on Xarelto and stopped taking it because he developed hematuria he is currently taking Eliquis. He notices its nearly any activity he gets extremely short of breath. She not had any fever sweats chills or productive cough. MD elicited complaint: shortness of breath and cough Pertinent past history: COPD and congestive heart failure Onset (ago): day(s) Exacerbating factors: lying flat and exertion Relieving factors: rest and upright position Known history of: COPD and congestive heart failure Associated symptoms: Reports chest congestion, chest pain and orthopnea; Deny abdominal pain, cough, diaphoresis, dizziness, extremity pain, fever(s), hemoptysis, lightheadedness, myalgias, nausea, palpitations, paresthesias, polydipsia, polyuria, rash, sense of impending doom, syncope or vomiting Treatment prior to arrival: none Review of Systems 2 Const: Denies: fever(s) or diaphoresis Card: Reports: chest pain and orthopnea; Denies: palpitations, lightheadedness or syncope Resp: Reports: chest congestion; Denies: hemoptysis GI: Denies: abdominal pain, nausea or vomiting : Denies: dysuria, urinary frequency or urinary urgency Musc: Denies: extremity pain Skin/Breast: Denies: rash Neuro: Denies: dizziness Endo: Denies: polyuria or polydipsia PFSH ED 2 PFSH: Medical History History of recurrent UTIs History of hypertension History of BPH Surgical History History of appendectomy History of hernia surgery H/O mitral valve repair Family History Mother CAD (coronary artery disease) Rheumatic heart disease Father CAD (coronary artery disease) Social History Smoking and tobacco/nicotine status: former use of tobacco/nicotine Alcohol intake: never Substance/Drug Use: never Physical Exam 2 Const: COMMON NORMALS: no acute distress GENERAL APPEARANCE: cooperative and comfortable ORIENTATION/CONSCIOUSNESS: Yes awake, Yes oriented to person, Yes oriented to place and Yes oriented to time HENMT: COMMON NORMALS: normocephalic, atraumatic and hearing grossly normal bilaterally HEAD & SCALP: normocephalic and atraumatic Resp: COMMON NORMALS: normal respiratory effort, No retractions, No use of accessory muscles and clear to auscultation bilaterally AUSCULTATION: clear to auscultation bilaterally Cardio: COMMON NORMALS: regular rate, regular rhythm and No murmurs present (Cardio) RATE: regular rate RHYTHM: regular rhythm GI: COMMON NORMALS: Soft to palpation and No hepatosplenomegaly present A USCULTATION: Yes normoactive bowel sounds PALPATION: Yes Soft to palpation, No Tenderness to palpation present (GI), No Guarding due to palpation present (GI) and Yes No hepatosplenomegaly present Extremity: COMMON NORMALS: normal to inspection, capillary refill normal, no clubbing, cyanosis or edema, no calf tenderness and no pedal edema Neuro: SENSORIUM/ORIENTATION: Yes oriented to person, Yes oriented to place and Yes oriented to time Skin: COMMON NORMALS: no rashes or lesions noted GENERAL SKIN EXAM: no rashes or lesions noted Course 2 Vital Signs: Vital signs: Vital Signs Temperature 96.7 F L 12/27/23 09:19 Pulse Rate 124 H 12/27/23 13:30 Respiratory Rate 16 12/27/23 12:35 Blood Pressure 151/115 12/27/23 14:02 Pulse Oximetry 96 12/27/23 14:02 Oxygen Delivery Me thod Room Air 12/27/23 14:02 MDM - SOB/Dyspnea Medical Decision Making Cardiac enzymes negative. Patient has significant cardiomyopathy with a last EF of 10 to 15%. He is aware that he should wear the LifeVest and we reviewed the potential risk for it he still does not wish to wear it. He passed his home O2 evaluation. At this point I think his exertional dyspnea is due primarily to his cardiomyopathy. He had not taken any of his medications for he came in today so his heart rate and blood pressure a little bit elevated. Discharge home with treatment take his medications as soon as he returns home. Return if he has further problems recommend follow-up with cardiology within the week Medical Records I reviewed the patient's medical records. Lab Data I reviewed the patient's lab results. 12/27/23 11:02 12/27/23 11:02 Labs/Radiology: Radiology Impressions Chest X-Ray 12/27/23 10:39 IMPRESSION: Interval increase in cardiac silhouette, specificity of which is limited by AP technique. Laboratory Results WBC 3.76 10^3/uL (3.29-11.43) 12/27/23 11:02 RBC 4.36 10^6/uL (3.85-5.65) 12/27/23 11:02 Hgb 12.00 g/dL (11.27-16.99) 12/27/23 11:02 Hct 38.5 % (37-53) 12/27/23 11:02 MCV 88.3 fl (82-101) 12/27/23 11:02 MCH 27.5 pg (27-33) 12/27/23 11:02 MCHC 31.2 g/dL (30-55) 12/27/23 11:02 RDW 15.7 % (12.1-15.1) H 12/27/23 11:02 Plt Count 238 10^3/cmm (157-399) 12/27/23 11:02 MPV 11.1 fL (7.4-10.4) H 12/27/23 11:02 Neut % (Auto) 64.4 % 12/27/23 11:02 Lymph % (Auto) 19.1 % 12/27/23 11:02 [place] % (Auto) 11.4 % 12/27/23 11:02 Eos % (Auto) 3.5 % 12/27/23 11:02 Baso % (Auto) 1.3 % 12/27/23 11:02 Neut # (Auto) 2.42 10^3/uL (1.8-7.7) 12/27/23 11:02 Lymph # (Auto) 0.7 10^3/uL (0.8-4.8) L 12/27/23 11:02 [place] # (Auto) 0.4 10^3/uL (0.2-0.9) 12/27/23 11:02 Eos # (Auto) 0.1 10^3/uL (0.0-0.8) 12/27/23 11:02 Baso # (Auto) 0.1 10^3/uL (0.0-0.1) 12/27/23 11:02 Nucleated RBC % (auto) 0 % 12/27/23 11:02 Nucleated RBCs # 0.0 /100WBC 12/27/23 11:02 Sodium 141 mmol/L (136-145) 12/27/23 11:02 Potassium 4.1 mmol/L (3.5-5.1) 12/27/23 11:02 Chloride 106 mmol/L (98-107) 12/27/23 11:02 Carbon Dioxide 21 mmol/L (22-29) L 12/27/23 11:02 Anion Gap 18.1 (5-19) 12/27/23 11:02 BUN 18 mg/dL (8-23) 12/27/23 11:02 Creatinine 1.7 mg/dL (0.7-1.2) H 12/27/23 11:02 GFR Calculation Not Reportable 12/27/23 11:02 Glucose 93 mg/dL (65-115) 12/27/23 11:02 Calculated Osmolality 294 mOsm/kg (285-295) 12/27/23 11:02 Calcium 8.1 mg/dL (8.5-10.5) L 12/27/23 11:02 Total Bilirubin 0.6 mg/dL (0.15-1.2) 12/27/23 11:02 AST 24 U/L (0-40) 12/27/23 11:02 ALT 42 U/L (0-41) H 12/27/23 11:02 Alkaline Phosphatase 98 U/L (40-130) 12/27/23 11:02 Troponin T Baseline 39 ng/L (0-15) H 12/27/23 11:02 Troponin T 120 Minute 38.51 ng/L (0-15) H 12/27/23 13:00 Delta Troponin T -0.49 ABS# (0-10) L 12/27/23 13:00 Total Protein 6.7 g/dL (6.6-8.7) 12/27/23 11:02 Albumin 3.5 g/dL (3.5-5.2) 12/27/23 11:02 Globulin 3.2 g/dL (1.3-4.6) 12/27/23 11:02 Urine Color Yellow (Yellow) 12/27/23 12:34 Urine Appearance Clear (CLEAR) 12/27/23 12:34 Urine pH 5 (5-7) 12/27/23 12:34 Ur Specific [place] 1.015 (1.005-1.030) 12/27/23 12:34 Urine Protein 1+ (Negative) H 12/27/23 12:34 Urine Glucose (UA) Norm (Normal) 12/27/23 12:34 Urine Ketones 1+ (Negative) H 12/27/23 12:34 Urine Blood Neg (Negative) 12/27/23 12:34 Urine Nitrate Negative (Negative) 12/27/23 12:34 Urine Bilirubin Neg (Negative) 12/27/23 12:34 Urine Urobilinogen 1 mg/dL (Negative) H 12/27/23 12:34 Ur Leukocyte Esterase Negative (Negative) 12/27/23 12:34 Urine RBC 0-4 /hpf (0-2) H 12/27/23 12:34 Urine WBC 5-10 /hpf (0-5) H 12/27/23 12:34 Ur Squamous Epith Cells 10-15 /hpf (0-5) H 12/27/23 12:34 Amorphous Sediment Not Reportable 12/27/23 12:34 Urine Bacteria Trace /hpf (NONE) 12/27/23 12:34 Urine Mucus 2+ /hpf 12/27/23 12:34 All radiology interpretation(s) finalized by discharge Discharge Plan Discharge Patient Disposition: Home Clinical Impression: CHF (congestive heart failure), Atrial fibrillation, Left atrial thrombus, Ischemic cardiomyopathy Condition: Stable Prescriptions: No Action Eliquis 5 mg tablet 5 mg PO BID Qty: 180 3RF (DME) CAM Boot See Rx Instructions .Route .MEDSUPPLY Qty: 1 0RF Rx Instructions: As directed omeprazole 40 mg capsule,delayed release(DR/EC) 40 mg PO DAILY amlodipine 10 mg tablet 10 mg PO DAILY levothyroxine 150 mcg tablet 150 mcg PO DAILY isosorbide dinitrate 10 mg tablet 10 mg PO TID hydralazine 25 mg tablet 25 mg PO TID propranolol 40 mg tablet 40 mg PO BID metoprolol succinate 50 mg tablet extended release 24 hr 50 mg PO BID Magtab 84 mg tablet extended release 84 mg PO DAILY calcitriol 0.5 mcg capsule 0.5 mcg PO BID fluoxetine 40 mg capsule 40 mg PO DAILY 30 Days Qty: 30 0RF atorvastatin 20 mg tablet 20 mg PO DAILY 30 Days Qty: 30 0RF tamsulosin 0.4 mg capsule 0.4 mg PO BID 30 Days Qty: 60 0RF Discharge Orders: Discharge ED (Routine); Ordered 12/27/23 Ordered By: Nain Encinas Referrals: Joe Hernandez MD [Primary Care Provider] - Patient Instructions: Opioid Safety, Pain Management Activity Restrictions/Additional Instructions: Thank you for choosing [facility] for your healthcare needs today. Please realize this is an emergency room and that we are providing you with a medical screening exam and this may not be complete and all inclusive of all the testing and or work up that you may need to determine your ailment or severity of your illness. It is very important that you follow up as instructed or that you return to the Emergency Department should you have concerns or if your condition changes or worsens in any way. Evaluation emergency room did not show anything acute. We did home oxygen evaluation and he did not require oxygen at with activity. Suspect your symptoms are because of your cardiomyopathy (weak heart muscle) Follow-up with your salon professional as soon as you are able. 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
[2023-12-27] MEDS: ipratropium-albuterol 3 mL Neb INHALATION (12:36)
[2023-12-27] MEDS: dexamethasone 10 mg/mL INJ IM (12:40)
[2023-12-27 12:41] LABS: Troponin(5th) Baseline 39 ng/L (0-15)
[2023-12-27 12:49] LABS: Add Urine Culture? No; Add Urine Microscopic? YES; Bacteria Urine TRACE /hpf; Bilirubin Urine Neg (Negative); Blood Urine Neg (Negative); Glucose Urine UA Norm (Normal); Ketones Urine 1+ (Negative); Leukocyte Esterase Urine Negative (Negative); Mucus Urine 2+ /hpf; Nitrate Urine Negative (Negative); Protein Urine 1+ (Negative); RBC Urine 0-4 /hpf (0-2); Specific Gravity, Urine 1.015 (1.005-1.030); Urine Appearance Clear (CLEAR); Urine Color Yellow (Yellow); Urobilinogen Urine 1 mg/dL (Negative); pH Urine 5 (5-7)
[2023-12-27 13:29] LABS: Troponin 5 2HR 38.51 ng/L (0-15)
[2023-12-27 13:30] LABS: Troponin 5 2HR Delta -0.49 ABS# (0-10)
== END 2023-12-27 14:34 | disposition home or self-care (01) ==
PROVIDERS: Emergency Provider Family Medicine; PCP Family Medicine
DX: I25.5 Ischemic cardiomyopathy (principal); I11.0 Hypertensive heart disease with heart failure; I50.9 Heart failure, unspecified; I48.91 Unspecified atrial fibrillation; I23.6 Thrombosis of atrium, auricular appendage, and ventricle as current complications following acute myocardial infarction; Z87.891 Personal history of nicotine dependence; Z79.01 Long term (current) use of anticoagulants
CPT/HCPCS: 36415; 71045; 80053; 81001; 84484; 85025; 93005; 94640; 96372; 99285; J1100

== ENCOUNTER 2024-06-06 08:43 | Outpatient (CLI) | payer MEDICARE, SELFPAY ==
--- NOTE | 2024-06-06 08:49 | MM_ITS ---
WS: [id number] DIAGNOSTIC BILATERAL DIGITAL BREAST TOMOSYNTHESIS MAMMOGRAPHY WITH CAD RIGHT breast ultrasound, limited. HISTORY: R BREAST MASS COMPARISON: None available. TECHNIQUE: Bilateral craniocaudad, mediolateral oblique, and mediolateral views are submitted with to mosynthesis and SM. Spot compression RIGHT CC. Computer aided detection utilized. Breast composition: There are scattered areas of fibroglandular density. There is a spiculated dense mass in the retroareolar region of the RIGHT breast measuring 2.8 x 1.4 x 3.4 cm. This corresponds to the palpable abnormality. This is most likely gynecomastia. No corresponding finding on the LEFT. No nipple retraction. RIGHT breast ultrasound, limited. Retroareolar mass with spiculation and dendritic extensions is consistent with gynecomastia. Area of gynecomastia measures 3.0 x 1.0 x 2.9 cm. No increased vascularity. MM/[place] [id number] IMPRESSION: BI-RADS: 2-Benign FOLLOW UP: See Report Findings are most consistent with RIGHT breast gynecomastia.
== END 2024-06-06 08:44 | disposition home or self-care (01) ==
LOC: RAD 08:43
PROVIDERS: Absent Provider Surgery; PCP Family Medicine; Visit Provider Family Medicine
DX: N63.10 Unspecified lump in the right breast, unspecified quadrant (principal); N62 Hypertrophy of breast
CPT/HCPCS: 76642; 77062; G0279

== ENCOUNTER 2025-11-05 18:03 | Emergency (ER) | payer MEDICARE, SELFPAY ==
[2025-11-05] VITALS (7 sets, daily range): BP systolic 101–135; BP diastolic 65–96; PULSE 80–84; TEMP 36.5; O2SAT 93–100; BMI 21.2
--- OUTSIDE RECORDS SUMMARY | 2025-11-05 18:11 | XMS_ITS | Encounter Summary ---
Author Organization [facility] Address [address] [place] [address] Care Team Providers Care Facilities Maintenance Supervisor Name Role Phone Unavailable Primary Care Provider Unavailabl e Reason for Visit * Reason Onset Date Comments referral status 10/20/2023 Encounter Details Date Type Department Care Team (Late st Contact Info) Description 10/20/2023 Telephone [place] [id number] [facility] [address] [place] [id number] Provider, Abstract NO ADDRESS ON FILE referral status Social History Tobacco Use Types Packs/Day Years Used Date Smoking Tobacco: Never Assessed Sex and Gender Information Value Date Recorded Sex Assigned at Male 11/20/2023 3:21 PM VIRTUAL ASSISTANT Legal Sex Male 9:11 AM CDT Gender Identity Male 11/20/2023 3:21 PM VIRTUAL ASSISTANT Sexual Orientation Straight 11/20/2023 3: 21 PM VIRTUAL ASSISTANT documented as of this encounter Miscellaneous Notes * Telephone Encounter - Alea Quiroz - 10/20/2023 8:23 AM CST Provider: Referral Person Calling: Karmen Daigle/ Mehdi Perry Phone #: [phone] Relationship to patient: Checking status of 09/09 referral -Alea Quiroz UAL ASSISTANT documented in this encounter Plan of Treatment Upcoming Encounters Date Type Department Care Team (Late st Contact Info) Description 12/13/2025 8:30 AM VIRTUAL ASSISTANT Procedure visit [facility] [address] [facility] [address] [place] [id number] Josef Ma MD [address] [place] [phone] 12/24/2025 1:00 PM VIRTUAL ASSISTANT Office Visit [facility] [address] [place] [phone] Josef Ma MD [address] [place] [phone] Luis Mistry, ANP [address] [place] [phone] 01/25/2026 12:40 PM CDT Office Visit [facility] [address] [place] [phone] Bull Ridley MD [address] [place] [phone] Radha Carey FNP [address] [place] [phone] documented as of this encounter Visit Diagnoses Not on filedocumented in this encounter
--- OUTSIDE RECORDS SUMMARY | 2025-11-05 18:11 | XMS_ITS | Patient Health Record ---
Author Organization [facility] Address [address] [place] [address] Care Team Providers Care Waste Machine Operator Name Role Phone Joe Hernandez MD Primary Care Provider RADHA Daly Unavailable [phone] Allergies No Known Allergies Reason For Referral No Information Medications Medication SIG (Take, Route, Frequency, Duration) Notes Start Date End Date Status Eliquis 5 MG Tablet 1 tablet Orally Twice a day *Pick strength-form from Medispan for eRX* Active Aspir-81 *Reorder from Medispan for eRx and Interaction Alerts* Active Atorvastatin Calcium *Pick stren gth-form from Medispan for eRX* Active Levothyroxine Sodium *Pick stren gth-form from Medispan for eRX* Active Calcitriol *Pick strength-f orm from Medispan for eRX* Active Fluoxetine *Reorder from Medispan for eRx and Interaction Alerts* Active Cardizem *Pick strength-f orm from Medispan for eRX* Active Magnesium *Pick strength-f orm from Medispan for eRX* Active Tamsulosin HCl *Pick strength-f orm from Medispan for eRX* Active Social History Social History Additional Details Category Social Info Options Details Migrated Social History Tobacco Use: (Tobacco Use/Smoking): Are you a: former smoker , How long has it been since you last smoked?: > 10 years Problems Problem Type SNOMED Code ICD Code Onset Dates Problem Status W/U Status Risk Notes Problem Lower urinary tract symptoms due to benign prostatic hypertrophy (42624245823004) Benign prostatic hyperplasia with lower urinary tract symptoms (N40.1) Active confirmed Problem Kidney stone (38827051) Kidney stone (N20.0) Active confirmed Plan Of Treatment Pending Test Test Name Order Date PSA Diagnostic--[id number] 02/08/2023 Bladder Scan 09/13/2023 Insurance Providers Payer Name Payer Address Payer Phone Subscriber Number Group Number Insured Name Patient Relationship to Insured Coverage Start Date Coverage End Date [place] [address] RAGHAV SIFUENTES [id number] Sam Ambrose Self - patient is the insured [address] [address] [id number] Sam Ambrose Self - patient is the insured Medical (General) History Medical History History ICD Code hematuria hx kidney cysts a fib BPH with LUTS hypertension recurrent UTIs SIRS hx acute kidney injury hx pyelonephritis hx acute encephalopathy Surgical History Surgery Date(Month/Year) open heart mitral valve repair hernia repair right shoulder appendectomy Hospitalization History Reason Date(Month/Year) sepsis surgery
--- OUTSIDE RECORDS SUMMARY | 2025-11-05 18:11 | XMS_ITS | CCD ---
Author Name Interface, [id number] Address [facility]ly [facility] [place] [address] Organization [facility] [place] [address] Care Team Providers Care Shuttle Buggy Operator Name Role Phone Jeff Rader MD Unavailable Unavailable Reason for Visit Social History Date Name Value 12/03/2023 Sex Male
--- OUTSIDE RECORDS SUMMARY | 2025-11-05 18:11 | XMS_ITS | Patient Health Record ---
Author Organization [facility] Address [address] [place] [address] Care Team Providers Care Tour Driver Name Role Phone Joe Hernandez MD Primary Care Provider Minor Berger Unavailable [phone] Allergies No Known Allergies Reason For Referral No Information Medications Medication SIG (Take, Route, Fr equency, Duration) Notes Start Date End Date Status Calcitriol Active Cardizem Active Aspir-81 Active Eliquis Active Magnesium Active Fluoxetine Active Tamsulosin HCl Activ e Atorvastatin Calcium Active Levothyroxine Sodium Active Social History Tobacco Use: Social History Observation Description Date Details (start date - stop date) Former Smoker NA - NA Social History Tobacco Use: Social Info Question Answer Notes xTobacco Use/Smoking Are you a former smoker How long has it been since you last smoked? > 10 years Problems Problem Type SNOMED Code ICD Code Onset Dates Problem Status W/U Status Risk Notes Problem Lower urinary tract symptoms due to benign prostatic hypertrophy (05285427260907) Benign prostatic hyperplasia with lower urinary tract symptoms (N40.1) Active confirmed Problem Kidney stone (60985748) Kidney stone (N20.0) Active confirmed Plan Of Treatment Pending Test Test Name Order Date PSA Diagnostic--[id number] 02/08/2023 Insurance Providers Payer Name Payer Address Payer Phone Subscriber Number Group Number Insured Name Patient Relationship to Insured Coverage Start Date Coverage End Date [place] [address] [place] [phone] [id number] Sam Ambrose Self - patient is the insured Medical (General) History Surgical History Surgery Date(Month/Year) right shoulder hernia repair open heart mitral valve repair
--- OUTSIDE RECORDS SUMMARY | 2025-11-05 18:11 | XMS_ITS | Data Portability ---
Author Organization SIVAKUMAR [facility], [facility] Address [address] [address] Care Team Providers Care Concrete Layer Name Role Phone CHET HERNANDEZ Primary Care Provider [facility] CHET HERNANDEZ Primary Care Provider [phone] Assessment Encounter Date Assessment Date Assessment LastModified by Organization Details LastModified Time 05/16/2025 05/16/2025 We will obtain routine labs. Encouraged cardiac diet and to try to work up to 30 minutes of exercise daily. [email or web address] Not available 05/19/2025 17:43:42 09/24/2025 09/24/2025 - 74-year-old male with history of cardiac intervention presenting with right arm pain, sleep disturbances, and candidal intertrigo. - Pain in right arm potentially nerve-related. - Sleep difficulties concern for insomnia. - Candidal intertrigo involves groin region. - Pacemaker and defibrillator management discussed. [email or web address] Not available 09/24/2025 16:13:42 Plan of Treatment Reminders Order Date Submit Date Provider Last Modified By Organization Details Last Modified Time Details Appointments None recorded. Lab CMP, serum or plasma 2024 025 [facility], [address], [place], [address], 12:35:59 lipid panel, blood 2024 025 [facility], [address], [address], [place], [address], 5 12:36:02 CBC 2024 025 [facility], [address] [facility], [facility] 1, [place], [address], 5 11:51:55 TSH, serum or plasma 2024 025 [facility], [address] [facility], [facility] [address], [address], 5 09:08:35 PSA, serum or plasma 2024 025 [place] [employer] [facility], [address] [place] [address], [facility] 3 [place], [address], 5 07:44:55 urinalysis, dipstick 2023 024 [facility] ([facility]), [address] [place], [address], 4 14:36:03 culture, urine 2023 024 [place] [employer] [facility], [address] [place] [address], [address] [place], [address], 4 00:16:45 Referral general surgeon referral 2023 024 [email or web address] 2 Not available 4 13:21:00 Procedures polysomnogr aphy (PROC) [address] [facility] [place], Counts include 234 beds at the [facility], [facility] 11, [place], [address], 5 10:34:40 Surgeries None recorded. Imaging US, breast, unilateral 2023 024 [email or web address] 8 [facility] (Scheduling Orders), [address] [place], [address], 4 12:09:51 Medication Orders trazodone 50 mg tablet 2024 [id number], [address], [place], [place], [id number], 5 11:58:47 clotrimazol e-betametha sone 1 %-0.05 % topical cream 2024 025 [facility]21788, [address], [place], [place], [id number], 5 12:00:11 clotrimazol e 1 % topical cream 2024 [facility] #95502, [address], [place], [place], [id number], 5 10:51:57 Bactrim DS 800 mg-160 mg tablet [address] [facility]22083, [address], [place], [place], [id number], 5 11:43:59 clotrimazol e-betametha sone 1 %-0.05 % topical cream 2023 024 [facility] #83570, [address], [place], [place], [id number], 4 14:03:11 Patient TargetsNo targets recorded. Patient Instructions Encounter Date Encounter Id Patient Instructions Last Modified By Organization Details Last Modified Time 09/24/2025 [id number] - Start Trazodon e 1 hour before bedtime to help with sleep. - Fill and apply Clotrimazole and Betamethasone cream as prescribed for the groin rash. - Monitor any changes in arm pain; report if worsening. - Follow up for a home sleep apnea study to check for sleep-related issues. - Continue routine checks of pacemaker and observe for signs of defibrillator activity. - Begin taking Jardiance; remember to eat to prevent blood sugar drops. [email or web address] Not available 09/24/2025 12:08:31 During the consultation, we reviewed the patient's history of pacemaker placement and recent cardiac procedures. I discussed the new onset of right arm pain, recommending initial observation with further evaluation if persistent. We examined the patient's sleep disturbances and mutually decided on trialing Trazodone, with a home sleep apnea study discussed to further diagnose potential contributors to his insomnia. The recurrence of candidal intertrigo prompted a refill of combination topical therapy. Medication adjustments were reviewed, particularly the initiation of Jardiance, and I emphasized the need for monitoring blood sugar levels due to the patient's history of dizziness. We also covered essential education on pacemaker and defibrillator management, ensuring the patient understands when to seek medical attention. [email or web address] Not available 09/24/2025 12:08:32 Reason for Referral General Surgeon Referral for Right inguinal hernia Referring Physician: Chet Hernandez, Family Medicine, Encounter Date: 05/17/2024 Results Created Date Observation Date Name Description Value Unit Range Abnormal Flag Note LastModifiedBy Organization Detail LastModifiedTime 07/12/20 24 07/14/2024 CULTU RE, URINE , ROUTI NE culture, urine, routine SEE NOTE abnormal CULTU RE, URINE , ROUTI NE Micro Numbe r: [id number] Test Statu s: Final Speci men Sourc e: Urine Speci men Quali ty: Adequ ate Resul t: Great er than 100,0 00 CFU/m L of Enter obact er cloac ae compl ex E. cloac ae ----- ----- ----- - INT SUYAPA AMOX/ CLAVU LANAT E R >=32 CEFAZ LITA R >=64 1 CEFEP LIBRADO S 2 CEFTA ZIDIM E R >=64 CIPRO FLOXA KIAH S <=0.0 6 GENTA MICIN S <=1 IMIPE NEM S <=0.2 5 LEVOF LOXAC IN S <=0.1 2 MEROP ENEM S <=0.2 5 NITRO FURAN TOIN S 32 PIP/T AZOBA CTAM R >=128 TRIME THOPR IM/TEAGUE LFA S <=20 S = Susce ptibl e I = Inter media te R = Resis tant NS = Not susce ptibl e SDD = Susce ptibl e Dose Depen dent * = Not Teste d NR = Not Repor dennis NN = See Thera py Comme nts THERA PY COMME NTS Note 1: For uncom plica dennis UTI cause d by E. coli, K. pneum oniae or P. mirab ilis: Cefaz lita is susce ptibl e if SUYAPA <32 mcg/m L and predi cts susce ptibl e to the oral agent s cefac padmaja, cefdi janet, cefpo doxim e, cefpr ozil, cefur oxime , cepha lexin and lorac arbef . Not Available [facility] [address] [place], [address], 07/15/2024 00:16:45 07/12/2007/12/2024 urina lysis , dipst ick Leukocytes Small Not Available [facility] ( [facility]) [address] [place], [address], 07/12/2024 14:01:55 07/12/2007/12/2024 urina lysis , dipst ick Nitrite positi ve Not Available [facility] ([facility]) [address] [place], [address], 07/12/2024 14:01:55 07/12/2007/12/2024 urina lysis , dipst ick Urobilinogen 2 Not Available [facility] ([facility]) [address] [place], [address], 07/12/2024 14:01:55 07/12/2007/12/2024 urina lysis , dipst ick Protein 100 Not Available [facility] ([facility]) [address] [place], [address], 07/12/2024 14:01:55 07/12/202024 urina lysis , dipst ick pH 6.5 Not Available [facility] ([facility]) [address] [place], [address], 07/12/2024 14:01:55 07/12/20 24 07/12/2024 urina lysis , dipst ick Blood Small Not Available [facility] ([facility]) [address] [place], [address], 07/12/2024 14:01:55 07/12/20 24 07/12/2024 urina lysis , dipst ick Specific Tyndall 1.020 Not Available [facility] ( [facility]) [address] [place], [address], 07/12/2024 14:01:55 07/12/20 24 07/12/2024 urina lysis , dipst ick Ketone Negati ve Not Available [facility] ([facility]) [address] [place], [address], 07/12/2024 14:01:55 07/12/20 24 07/12/2024 urina lysis , dipst ick Bilirubin Small Not Available [facility] ([facility]) [address] [place], [address], 07/12/2024 14:01:55 07/12/20 24 07/12/2024 urina lysis , dipst ick Glucose Negati ve Not Available [facility] ([facility]) [address] [place], [address], 07/12/2024 14:01:55 07/12/20 24 07/12/2024 urina lysis , dipst ick Appearance Clear Not Available [facility] ([facility]) [address] [place], [address], 07/12/2024 14:01:55 07/12/20 24 07/12/2024 urina lysis , dipst ick Color Dark Yellow Not Available [facility] ([facility]) [address] [place], [address], 07/12/2024 14:01:55 04/29/20 25 04/29/2025 COLOG UARD cologuard result reportable NEGATI VE negati ve normal The Colog uard (TM) test was perfo rmed on this speci men. NEGAT ERLIN TEST RESUL T. A negat erlin Colog uard resul t indic ates a low likel ihood that a color ectal cance r (CRC) or advan ahmet adeno ma (diana omato us polyp s with more advan ahmet pre-m align ant featu res) is prese nt. The [facility] e that a perso n with a negat erlin Colog uard test has a color ectal cance r is less than 1 in 1500 (nega tive predi ctive value >99.9 %) or has an advan ahmet adeno ma is less than 5.3% (nega tive predi ctive value 94.7% ). These data are based on a prosp ectiv e cross -sect ional study of 10,00 0 indiv idual s at [facility] risk for color ectal cance r who were scree sky with both Colog uard and colon oscop y. (Jarred Jimenez. et al, N Engl J Med 2014; 370(1 4):12 86-12 97) The carley l value (refe rence range ) for this assay is negat erlin. COLOG UARD RE-SC NABEEL KRUSE RECOM MENDA TION: Perio dic color ectal cance r scree stephenie is an impor tant part of preve ntive healt hcare for asymp tomat ic indiv idual s at [facility] risk for color ectal cance r. Follo wing a negat erlin Colog uard resul t, the Ameri can Cance r Socie ty and U.S. Multi -Soci ety Task Force scree stephenie guide lines recom mend a Colog uard re-sc reeni ng inter [place] of 3 years . Refer ences : Jaylin can Cance r Socie ty Guide line for Color ectal Cance r Scree stephenie: https ://chente w.fahad cer.o rg/ca ncer/ colon -rect al-ca ncer/ detec tion- diagn osis- stagi ng/ac s-rec ommen datio ns.ht ml.; Yasir BALDWIN, Alise hernandez CR, Branden soares JK, Color ectal Cance r Scree stephenie: Recom menda tions for Physi cians and Patie nts from the U.S. Multi -Soci ety Task Force on Color ectal Cance r Scree stephenie , Am Bryant blue y 2017; 112:1 016-1 030. TEST DESCR IPTIO N: [place] site algor ithmi c macario sis of stool DNA-b iolilliana kwong with hemog lobin immun oassa y. Quant itati ve value s of indiv idual bioma rkers are not repor table and are not assoc iated with indiv idual bioma rker resul t refer ence range s. Colog uard is inten ded for color ectal cance r scree stephenie of adult s of eithe r sex, 45 years or older , who are at [facility] for color ectal cance r (CRC) . Colog uard has been appro fahad for use by the U.S. FDA. The perfo rmanc e of Colog uard was estab lishe d in a cross secti onal study of [facility] adult s aged 50-84 . Colog uard perfo rmanc e in patie nts ages 45 to 49 years was estim ated by sub-g roup macario sis of near- age group s. Colon oscop ies perfo rmed for a posit erlin akanksha t may find as the most clini ej signi marcia armenta n: color ectal cance r [4.0% ], advan ahmet adeno ma (incl uding sessi le grant dennis polyp s great er than or equal to 1cm diame ter) [20%] or non- advan ahmet adeno ma [31%] ; or no color ectal neopl jesse [45%] . These estim ates are deriv ed from a prosp ectiv e cross -sect ional scree stephenie study of 0 indiv [facility]ual s [facility] risk for color ectal cance r who were scree sky with both Colog uard and colon oscop y. (Jarred Green al, N Engl J Med 2014; 370(1 4):12 86-12 97.) Colog uard may produ ce a false negat erlin or false posit erlin resul t (no color ectal cance r or preca ncero us polyp prese nt at colon oscop y follo w up). A negat erlin Colog uard test resul t does not guara ntee the absen ce of CRC or advan ahmet adeno ma (pre- cance r). The curre nt Colog uard scree stephenie inter [place] is every 3 years . (Amer ican Cance r Socie ty and U.S. Multi -Soci ety Task Force ). Colog uard perfo rmanc e data in a 0 patie nt pivot al study using colon oscop y as the refer ence metho d can be acces sed at the follo wing locat ion: www.e xactl abs.c om/re sirisha . Addit ional descr iptio n of the Colog uard test proce ss, warni ngs and preca ution s can be found at www.c rio ortizd.c om. Not Available [facility] [address], [place], [address], 05/04/2025 01:37:36 05/16/2005/16/2025 CBC WBC 4.8 x10 4.5-10 .5 Not Available [facility] [address] [facility] 1, [place], [address], 05/16/2025 11:51:55 05/16/20 25 05/16/2025 CBC RBC 5.13 x10 4.30-5 .90 Not Available [facility] [address] [facility] 1, [place], [address], 05/16/2025 11:51:55 05/16/20 25 05/16/2025 CBC HGB 14.2 g/dL 13.5-1 8.0 Not Available [facility] [address] [facility] 1, [place], [address], 05/16/2025 11:51:55 05/16/2005/16/2025 CBC HCT 43.8 % 35.0-6 0.0 Not Available [facility] [address] [facility] 1, [place], [address], 05/16/2025 11:51:55 05/16/2005/16/2025 CBC MCV 85.4 fL 80.0-9 9.9 Not Available [facility] [address] [facility] 1, [place], [address], 05/16/2025 11:51:55 05/16/20 25 05/16/2025 CBC MCH 27.7 pg 27.0-3 2.0 Not Available [facility] [address] [facility] 1, [place], [address], 05/16/2025 11:51:55 05/16/20 25 05/16/2025 CBC MCHC 32.4 g/dL 32.0-3 6.0 Not Available [facility] [address] [facility] 1, [place], [address], 05/16/2025 11:51:55 05/16/2005/16/2025 CBC RDW 16.4 % 11.5-1 4.5 high Not Available [facility] [address] [facility] 1, [place], [address], 05/16/2025 11:51:55 05/16/20 25 05/16/2025 CBC plt 404.7 x10 150.0- 451.0 Not Available [facility] [address] [facility] 1, [place], [address], 05/16/2025 11:51:55 05/16/20 25 05/16/2025 CBC lymphocytes % 23.0 % 20.0-5 0.0 Not Available [facility] [address] [facility], [place], [address], 05/16/2025 11:51:55 05/16/20 25 05/16/2025 CBC granulcytes % 66.0 % 30.0-7 0.0 Not Available [facility] [address] [facility] 1, [place], [address], 05/16/2025 11:51:55 05/16/20 25 05/16/2025 CBC monocytes % 6.9 % 2.0-16 .0 Not Available [facility] [address] [address], [place], [address], 05/16/2025 11:51:55 05/16/20 25 05/16/2025 CBC granulcytes# 3.2 x10 Not Sandy ilable [facility] [address] [facility], [place], [address], 05/16/2025 11:51:55 05/16/20 25 05/16/2025 CBC lymphocytes # 1.1 x10 Not Available [facility] [address] [facility], [place], [address], 05/16/2025 11:51:55 05/16/20 25 05/16/2025 CBC monocytes # 0.3 x10 Not Avai lable [facility] [address] [facility] [address] [facility], [place], [address], 05/16/2025 11:51:55 05/16/20 25 05/16/2025 CMP (MALE ) glucose 96.0 mg/dL 60.0-9 9.0 Not Available [facility] [address] [facility] 1, [place], [address], 05/16/2025 12:35:59 05/16/20 25 05/16/2025 CMP (MALE ) BUN (blood urea nitrogen) 19.0 mg/dL 10.0-2 6.0 Not Available [facility] [address] [facility], [place], [address], 05/16/2025 12:35:59 05/16/20 25 05/16/2025 CMP (MALE ) creatinine (serum) 2.0 mg/dL 0.4-1. 5 high Not Available [facility] [address] [facility] 1, [place], [address], 05/16/2025 12:35:59 05/16/20 25 05/16/2025 CMP (MALE ) BUN/creatini ne ratio 9.50 ratio Not Available [facility] [address] [facility], [place], [address], 05/16/2025 12:35:59 05/16/20 25 05/16/2025 CMP (MALE ) eGFR calculated 34.9 Not Available [facility] [address] [facility] [address] [address], [place], [address], 05/16/2025 12:35:59 05/16/20 25 05/16/2025 CMP (MALE ) total protein 7.7 g/dL 6.0-8. 5 Not Available [facility] [address] [facility], [place], [address], 05/16/2025 12:35:59 05/16/20 25 05/16/2025 CMP (MALE ) total bilirubin 0.8 mg/dL 0.2-1. 3 Not Available [facility] [address] [facility] [address], [place], [address], 05/16/2025 12:35:59 05/16/20 25 05/16/2025 CMP (MALE ) albumin 4.0 g/dL 3.5-5. 5 Not Available [facility] [address] [facility] [address] [facility] 1, [place], [address], 05/16/2025 12:35:59 05/16/20 25 05/16/2025 CMP (MALE ) globulin 3.7 calc Not Available [facility] [address] [facility], [place], [address], 05/16/2025 12:35:59 05/16/20 25 05/16/2025 CMP (MALE ) AST (SGOT) 23.0 U/L 0.0-46 .0 Not Available [facility] [address] [address], [place], [address], 05/16/2025 12:35:59 05/16/20 25 05/16/2025 CMP (MALE ) altv (SGPT) 12.0 U/L 13.0-6 9.0 abnormal Not Available [facility] [address] [facility] 1, [place], [address], 05/16/2025 12:35:59 05/16/20 25 05/16/2025 CMP (MALE ) A/G ratio 1.1 ratio Not Available [facility] [address] [address], [place], [address], 05/16/2025 12:35:59 05/16/20 25 05/16/2025 CMP (MALE ) ALP phos 85.0 U/L 30.0-1 40.0 normal Not Available [facility] [address] [facility] [address] [address], [place], [address], 05/16/2025 12:35:59 05/16/20 25 05/16/2025 CMP (MALE ) calcium 7.7 mg/dL 8.4-10 .5 low Not Available [facility] [address] [facility] 1, [place], [address], 05/16/2025 12:35:59 05/16/20 25 05/16/2025 CMP (MALE ) sodium 140.0 mmol/ L 136.0- 145.0 Not Available [facility] [address] [facility], [place], [address], 05/16/2025 12:35:59 05/16/20 25 05/16/2025 CMP (MALE ) potassium 4.0 mmol/ L 3.5-5. 1 Not Available [facility] [address] [facility] 1, [place], [address], 05/16/2025 12:35:59 05/16/2005/16/2025 CMP (MALE ) chloride 101.0 mmol/ L 98.0-1 10.0 normal Not Available [facility] [address] [facility], [place], [address], 05/16/2025 12:35:59 05/16/2005/16/2025 CMP (MALE ) C02 28.0 mmol/ L 22.0-3 1.0 Not Available [facility] [address] [facility] 1, [place], [address], 05/16/2025 12:35:59 05/16/2005/16/2025 CMP (MALE ) anion gap 11.0 calc Not Available [facility] [address] [facility] 1, [place], [address], 05/16/2025 12:35:59 05/16/2005/16/2025 CMP (MALE ) osmolality 291.1 calc Not Available [facility] [address] [facility] [address] [facility] 1, [place], [address], 05/16/2025 12:35:59 05/16/2005/16/2025 LIPID PROFI LE (MALE ) cholesterol 199.0 mg/dL 0.0-20 0.0 Not Available [facility] [address] [facility] 1, [place], [address], 05/16/2025 12:36:02 05/16/20 25 05/16/2025 LIPID PROFI LE (MALE ) trig 105.0 mg/dL 0.0-15 0.0 Not Available [facility] [address] [facility] 1, [place], [address], 05/16/2025 12:36:02 05/16/2005/16/2025 LIPID PROFI LE (MALE ) HDL - direct 30.0 mg/dL >40.0 low Not Available [facility] [address] [facility] 1, [place], [address], 05/16/2025 12:36:02 05/16/2005/16/2025 LIPID PROFI LE (MALE ) VLDL - direct 21.0 mg/dL Not Available [facility] [address] [facility] 1, [place], [address], 05/16/2025 12:36:02 05/16/2005/16/2025 LIPID PROFI LE (MALE ) LDL - direct 148.0 mg/dL 0.0-13 0.0 high Not Available [facility] [address] [facility] 1, [place], [address], 05/16/2025 12:36:02 05/16/2005/17/2025 PSA, TOTAL PSA, total 1.48 NG/mL < or = 4.00 normal The total PSA value from this assay roberto abreu is stand ardiz ed again st the WHO stand marina. The test resul t will be appro ximat gema 20% lower when phil red to the equim olar- stand ardiz ed total PSA (Young man Coult er). Phil rison of seria l PSA resul ts shoul d be inter prete d with this fact in mind. This test was perfo rmed using the Sieme ns chemi lumin escen t metho d. Value s obtai sky from diffe rent assay metho ds canno t be used inter lee eably . PSA level s, regar dless of value , shoul d not be inter prete d as absol flandreau evide nce of the prese nce or absen ce of disea se. Not Available [facility] [address] [place], [address], 05/17/2025 07:44:55 05/16/2005/17/2025 TSH TSH 59.18 mIU/L 0.40-4 .50 high Not Available [facility] [address] [place], [address], 05/17/2025 09:08:35 06/06/20 24 06/06/2024 , malik t, unila teral No observ ation record ed. [facility] [address] [place], [address], 06/07/2024 08:52:34 06/06/20 24 06/06/2024 , malik t, unila teral No observ ation record ed. [facility] (Scheduling Orders) [address] [place], [address], 06/07/2024 08:52:34 Result Notes None recorded. Problems Name Problem SNOMED Code Status Onset Date Resolution Date Notes Provider Name and Address Organization Details Recorded Time Prostheti c heart valve in situ 606826857 Active 2022 H/O MITRAL VALVE REPLACEME NT; Recorded 3 11:25AM by Chet Hernandez MD, Office Visit; Promoted; acuity set as *; Not Available [facility] 4 05:12:53 Hypothyro idism 38332165 Active 2022 Not Available [facility] 4 05:12:53 Gastroeso phageal reflux disease 261596190 Active 2022 Not Available [facility] 4 05:12:53 Essential hypertens ion 19314026 Active 2022 Not Available [facility] 4 05:12:53 Atrial fibrillat ion 37598640 Active 2022 Not Available [facility] 4 05:12:53 Acute pyeloneph ritis 03504040 Active 2022 Not Available [facility] 4 05:12:53 Dyspnea on exertion 37436401 Active 2022 Not Available [facility] 4 05:12:53 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 4 09:00:30 Mass of right breast [id number] 285659 Active 2023 Chet Hernandez MD [address] [place] [address], [address] , [facility] 4 16:42:31 Right inguinal hernia 786550307 Active 2023 Chet Hernandez MD [address] [place] [address], [address] , [facility] 4 16:04:46 Tinea corporis 29761322 Active 2024 Chet Hernandez MD [address] [place] [address] [address] , [facility] 10:51:09 Insomnia 927837808 Active 2024 Chet Hernandez MD [address] [place] [address], [address] , [facility] 11:57:39 Hypersomn ia [id number] Active 2024 Chet Hernandez MD [address] [place] [address], [phone] , [facility] 11:58:25 Candidal intertrig o 090311547 Active 2024 Chet Hernandez MD [address] [place] [address], [phone] , [facility] 11:59:51 Pain in right arm 068801278 Active 2024 Chet Hernandez MD [address] [place] [address], [phone] , [facility] 16:12:36 Notes:Some problems listed i n Documents: #[id number], #[id number], #[id number] could not be added to this patient's chart. Please review these documents and add these problems to the patient's chart manually as needed. Problem Notes None recorded. Procedures Surgical History Date Name Laterality Status Provider Name and Address Organization Details Recorded Time 04/27/20 25 colonoscopy completed NAVEEN DAHL [address] [place] [address], [phone], [facility] 05/04/2025 07:30:00 01/15/20 [facility] of [facility] 10:25:01 Appendectomy completed ALEKSANDRA FRANCIS [facility] 04/01/2023 08:52:22 Tonsillectomy completed [facility] [place] 04/01/2023 08:52:34 Hernia Repair completed [facility], [place] 04/01/2023 08:52:49 Arthrt acrmclv/strnclav jt completed [facility], [place] 04/01/2023 08:53:34 repair of mitral valve completed [facility] [place] 04/01/2023 10:41:16 Imaging Results None recorded. Procedure Notes None recorded. Medical Equipment None Reported. Allergies No known drug allergies Medications Name Sig Start Date Stop Date Status Note LastModified by Organization Details LastModified Time Prescript ion - Renewal 09/24 completed Not Available Not Available Not Available fluoxetin e 40 mg capsule TAKE 1 CAPSULE EVERY DAY active Not Available Not Available No t Available isosorbid e dinitrate 10 mg tablet 05/01 completed Not Available Not Available Not Available atorvasta tin 20 mg tablet TAKE 1 TABLET EVERY DAY 2024 active Not Available Not Available Not Avai lable trazodone 50 mg tablet TAKE 1 TABLET BY MOUTH EVERY DAY AT BEDTIME active Not Available Not Available No t Available metoprolo l succinate ER 50 mg tablet,ex tended release 24 hr 01/26 completed Not Available Not Available Not Available hydrocodo ne 5 mg-acetam inophen 325 mg tablet TAKE 1 -2 TABLET BY MOUTH EVERY 5 HOURS NEEDED PAIN 09/24 completed Not Available Not Available Not Available meloxicam 15 mg tablet TAKE 1 TABLET BY MOUTH DAILY 05/01 completed Not Available Not Available Not Available triamcino lone acetonide 0.025 % lotion APPLY TOPICALL Y TO THE AFFECTED AREA THREE TIMES DAILY FOR 14 DAYS 02/17 completed Not Available Not Available Not Available hydralazi ne 25 mg tablet 01/26 completed Not Available Not Available Not Available ciproflox acin 500 mg tablet TAKE 1 TABLET BY MOUTH EVERY 12 HOURS FOR 7 DAYS 04/01 completed Not Available Not Available Not Available sulfameth oxazole 800 mg-trimet hoprim 160 mg tablet TAKE 1 TABLET BY MOUTH EVERY 12 HOURS FOR 7 DAYS 09/24 completed Not Available Not Available Not Available omeprazol e 40 mg capsule,d elayed release TAKE 1 CAPSULE EVERY DAY 2024 active Not Available Not Available Not Avai lable spironola ctone 25 mg tablet Take 0.5 tablets every day by oral route. active Not Available Not Available No t Available propranol ol 40 mg tablet Take 1 tablet daily 2024 active Not Available Not Available Not Avai lable diltiazem 120 mg tablet TAKE 1 TABLET BY MOUTH TWICE DAILY 11/04 completed Not Available Not Available Not Available tamsulosi n 0.4 mg capsule TAKE 1 CAPSULE TWICE DAILY active Not Available Not Available No t Available amlodipin e 10 mg tablet TAKE 1 TABLET BY MOUTH EVERY DAY 02/17 completed Not Available Not Available Not Available Magtab 84 mg tablet,ex tended release TAKE 1 TABLET DAILY 09/24 completed Not Available Not Available Not Available isosorbid e dinitrate 20 mg tablet 1 tablet 3 times a day 09/24 completed Not Available Not Available Not Available calcitrio l 0.5 mcg capsule TAKE 1 CAPSULE EVERY DAY (NEED MD APPOINTM ENT) 2024 active Not Available Not Available Not Avai lable levothyro xine 125 mcg tablet TAKE 1 TABLET BY MOUTH EVERY DAY 09/07 completed Not Available Not Available Not Available clotrimaz ole-betam ethasone 1 %-0.05 % topical cream APPLY TO THE AFFECTED AND SURROUND ING AREAS OF SKIN BY TOPICAL ROUTE 2 TIMES PER DAY IN THE MORNING AND EVENING FOR 2 WEEKS 2024 active Not Available Not Available Not Avai lable levothyro xine 150 mcg tablet TAKE 1 TABLET EVERY DAY 2024 active Not Available Not Available Not Avai lable lisinopri l 20 mg-hydroc hlorothia zide 25 mg tablet TAKE 1 TABLET BY MOUTH DAILY 02/17 completed Not Available Not Available Not Available bumetanid e 1 mg tablet Take 1 tablet every day by oral route. active Not Available Not Available No t Available digoxin 125 mcg (0.125 mg) tablet Take 1 tablet by oral route as directed . active On Wednesday, and Wednesday Not Available Not Available Not Available metoprolo l succinate ER 25 mg tablet,ex tended release 24 hr TAKE 1 TABLET BY MOUTH TWICE DAILY. HOLD FOR A BLOOD PRESSURE LESS THAN 100 OR HEART RATE LESS THAN 60 active Not Available Not Available No t Available albuterol sulfate HFA 90 mcg/actua tion aerosol inhaler INHALE 2 PUFFS BY MOUTH EVERY 4 HOURS 2024 active Not Available Not Available Not Avai lable cefdinir 300 mg capsule TAKE 1 CAPSULE BY MOUTH TWICE DAILY FOR 3 DAYS 07/12 completed Not Available Not Available Not Available diltiazem 60 mg tablet Take 1 tablet 3 times a day by oral route for 90 days. 09/24 completed Not Available Not Available Not Available clotrimaz ole 1 % topical cream APPLY TOPICALL Y TO THE AFFECTED AND SURROUND ING AREAS TWICE DAILY IN THE MORNING AND IN THE EVENING active Not Available Not Available No t Available amoxicill in 875 mg-potass ium clavulana te 125 mg tablet TAKE 1 TABLET BY MOUTH EVERY 12 HOURS FOR 10 DAYS 11/03 completed Not Available Not Available Not Available potassium chloride ER 10 mEq tablet,ex tended release(p art/cryst ) 09/24 completed Not Available Not Available Not Available atorvasta tin daily 08/09 completed Recorded 08/07/20 22 2:54PM by Chet Hernandez MD, Office Visit; Not Available Not Available Not Available meloxicam daily 08/10 completed 0; Recorded 11/26/19 11:04AM by Aleksandra Francis, Office Visit; Not Available Not Available Not Available fluoxetin e daily 08/10 completed 62375; Recorded 11/17/19 23 11:07AM by Aleksandra Francis (Authori zed through Chet Hernandez MD), Refill Request; Refill Quantity : 90; Capsule; Not Available Not Available Not Available lisinopri l-hydroch lorothiaz phill daily 08/10 completed VO CH/ab; Recorded 11/27/19 8:37AM by Chet Hernandez MD, Office Visit; Refill Quantity : 90; Tablet; Not Available Not Available Not Available omeprazol e daily 08/09 completed 0; Recorded 11/26/19 11:04AM by Aleksandra Francis, Office Visit; Not Available Not Available Not Available calcitrio l two times daily 08/10 completed Recorded 11/20/19 12:32PM by Aleksandra Francis, Historic al Summary; Refill Quantity : 180; Capsule; Not Available Not Available Not Available [facility]SC Levothyro xine Sodium daily 08/09 completed Recorded 11/27/19 8:39AM by Chet Hernandez MD, Office Visit; Not Available Not Available Not Available Xarelto 20 mg tablet TAKE 1 TABLET BY MOUTH DAILY 09/07 completed Not Available Not Available Not Available Eliquis 5 mg tablet TAKE 1 TABLET BY MOUTH TWICE DAILY active Not Available Not Available No t Available Eliquis 2.5 mg tablet 09/24 completed Not Available Not Available Not Available empaglifl ozin 10 mg tablet Take 1 tablet every day by oral route. 05/16 completed Not Available Not Available Not Available Vitals Date Recorded Body height Respiratory rate Body mass index (BMI) Body weight Body temperature Heart rate Oxygen saturation Systolic And Diastolic Provider Name and Address Organization Details Last Updated DateTime 4 180.34 cm 20 /min 21.6 kg/m2 32739.8 2 g 97.3 [degF] 74 /min 98 % 142/88 mm[Hg] ALEKSANDRA FRANCIS [facility] 4 16:29:36 Date Recorded Body height Body mass index (BMI) Body weight Heart rate Oxygen saturation Systolic And Diastolic Provider Name and Address Organization Details Last Updated DateTime 5 180.34 cm 22.9 kg/m2 59963.9 g 58 /min 96 % 108/48 mm[Hg] Ximena Laws [facility] 5 10:39:26 Date Recorded Body height Body mass index (BMI) Body weight Body temperature Heart rate Oxygen saturation Systolic And Diastolic Provider Name and Address Organization Details Last Updated DateTime 4 180.34 cm 21.7 kg/m2 19204.6 2 g 97.6 [degF] 64 /min 98 % 140/86 mm[Hg] TYRON FOUNTAIN [facility] 4 15:57:34 Date Recorded Body height Body mass index (BMI) Body weight Oxygen saturation Heart rate Respiratory rate Body temperature Systolic And Diastolic Provider Name and Address Organization Details Last Updated DateTime 4 180.34 cm 22.4 kg/m2 42839.2 2 g 97 % 94 /min 16 /min 97.9 [degF] 146/94 mm[Hg] Pippa Worley [facility] 4 14:08:21 Date Recorded Body height Body mass index (BMI) Body weight Body temperature Oxygen saturation Heart rate Systolic And Diastolic Provider Name and Address Organization Details Last Updated DateTime 5 180.34 cm 22.3 kg/m2 81989.7 8 g 98.9 [degF] 98 % 91 /min 106/72 mm[Hg] Agnieszka Renan [facility] 5 11:32:49 Social History Question Answer Notes LastModified by [email or web address] ion Details LastModified Time Tobacco Smoking Status [facility] 01/28/2023 13:15:35 What Is Your Level Of Caffeine Consumption? Moderate Information not available 01/28/2023 When Did You Quit Smoking? 16+yearssincel astcigarette Information not available 01/28/2023 What Was The Date Of Your Most Recent Tobacco Screening? 09/24/2025 [email or web address] Information not available 09/24/2025 At What Age Did You Start Smoking Tobacco? 20 Information not available 01/28/2023 Have You Recently Traveled Abroad? No Information not available 01/28/2023 Sex: Unknown Functional Status Question Answer Note LastModified by Organizat ion Details LastModified Time Do you use any illicit or recreational drugs? No Information not available 01/28/2023 What is your level of alcohol consumption? None [email or web address] Information not available 09/24/2025 Mental Status None recorded. Family History Relationship Description Onset Age of this Age Resolved Age Notes LastModified by Organization Details LastModified Time Father Carcinoma of prostate [email or web address] Not available 2022 13:12:34 Father Essential hypertension tgregg Not available 13:13:15 Mother Heart disease tgregg Not available 2022 13:12:54 Medical History No medical history recorded. Immunizations Vaccine Type Date Status Note Provider Nam e and Address Organization Details Recorded Time Influenza, split virus, trivalent, preservative 6 completed Not Available [facility] 11/19/2023 05:12:54 Influenza, split virus, trivalent, preservative 3 completed Not Available [facility] 11/19/2023 05:12:54 Influenza, split virus, trivalent, preservative 7 completed Not Available [facility] 11/19/2023 05:12:54 Influenza, split virus, trivalent, preservative 4 completed Pippa Worley [facility] 07/12/2024 14:03:08 Influenza, high-dose, trivalent, PF 4 completed Not Available [facility] 09/24/2025 11:11:57 Past Encounters Encounter ID Performer Location Encounter Start Date Encounter Closed Date Diagnosis/Indication Diagnosis SNOMED-CT Code Diagnosis ICD10 Code Diagnosis IMO Codes Diagnosis Note [id number] NAVEEN PRUITT [facility] ([facility] [address] [place] [address] 01/27/2023 16:17:46 01/27/2023 16:29:12 [id number] Chet Hernandez MD [facility] ([facility]) [address] [place] [address] 02/17/2023 12:18:23 02/23/2023 13:22:41 Hypothyroidism 21511337 E03.9 needed refill on meds. Been stable and TSH was appropriat e at admission. Atrial fibrillation 4943 6004 I48.91 Reviewed medication with patient and recommend he stop the propranolo l and restart diltiazem. if continued issues are noted then we will try to decrease the dose. Patient was instructed to resume xarelto tomorrow and if call the office if further bleeding is noted. Acute pyelonephritis 366 22135 N10 Patient has recovered from infection and no further interventi on is needed. [id number] NAVEEN PRUITT [facility] ([facility]) [address] [place] [phone] 03/16/2023 17:20:31 03/16/2023 20:55:54 Dysuria 34756415 R30.0 Acute cystitis 12998410 N30.01 [id number] Chet Hernandez MD [facility] ([facility]) [address] [place] [address] 04/01/2023 10:28:29 04/01/2023 15:45:49 Dyspnea on exertion 23962967 R06.09 Hypothyroidism 42221326 E03.9 [id number] Chet Hernandez MD [facility]) [address] [place] [phone] 08/10/2023 10:14:42 08/10/2023 17:53:30 Hypothyroidism 01699427 E03.9 Hypoparathyroidism 01080 004 E20.9 Atrial fibrillation 4943 6004 I48.91 Tinea cruris 652036369 B 35.6 [id number] Chet Hernandez MD [facility] ([facility]) [address] [place] [id number] 09/07/2023 10:06:52 09/07/2023 12:09:34 Atrial fibrillation 06407466 I48.91 We will send referral to [facility] opinion. Patient is interested in an ablation if that is feasible. Essential tremor 5795168 09 G25.0 We will restart propranolo l. Discussed potential side effects of the medication and concerns. The patient expresses understand ing. [id number] Chet Hernandez MD [facility] [address] [place] [phone] 01/19/2024 16:24:56 01/19/2024 17:37:52 Congestive heart failure 99202077 I50.9 Continue current medication s with no changes. Recommend follow-up with cardiology . Discussed management of congestive heart failure including daily weights and monitoring oral intake of fluids. The patient needs to increase water intake and recommend a goal of at least 2 L. [id number] Chet Hernandez MD [facility] [address] [place] [address] 05/01/2024 16:19:41 05/01/2024 17:14:47 Mass of right breast 0332812321 5520608 N63.10 Recommend proceeding with ultrasound for initial evaluation . Tinea cruris 370198438 B 35.6 Will change treatment to include a steroid to help with rash on scrotum. [id number] Chet Hernandez MD [facility] [address] [place] [address] 05/17/2024 15:50:10 05/17/2024 16:31:17 Right inguinal hernia 028737473 K40.90 Will send referral to Dr. Nichole as requested. Essential hypertension 58899041 I10 Patient will monitor blood pressure and report if unable to control or if they develop new symptoms. [id number] NAVEEN DAHL [facility] [address] [place] [phone] 07/12/2024 13:45:06 07/13/2024 11:06:49 Dysuria 32677695 R30.0 Acute urin julia tract infection 606839362 N39.0 UA results reviewed and discussed with pt. We will start antibiotic s. Pt will increase oral fluids. Return to office with no improvemen t or any problems. Go to ER with severe worsening or severe problems.W e will obtain urine culture [id number] Chet Hernandez MD [facility] [address] [place] [id number] 05/16/2025 10:17:32 05/16/2025 11:18:17 Tinea corporis 54567367 B35.4 95951 Rash on his abdomen is consistent with ringworm. Start clotrimazo le twice daily. Prostate s pecific antigen measurement 99049802 Z12.5 263140 Atrial fibrillation 4943 6004 I48.91 Continue to follow-up with [facility] . Recommend discussing with cardiologi st the medication that was recommende d. Essential hypertension 52343986 I10 Blood pressures doing better on current medication s. Hypothyroidism 11465122 E03.9 Check TSH as part of his labs today. [id number] Chet Hernandez MD [facility] [address] [place] [id number] 09/24/2025 11:08:00 09/24/2025 12:27:59 Insomnia 170274513 G47.00 80708522 - Trazodone prescribed ; consider sleep study for sleep apnea. Hypersomnia 42182789 G47 .10 84537 - Considerat ion in context of insomnia. Candidal intertrigo 2661 72027 B37.2 92535 - Topical prescripti on refilled. Cardiac pa cemaker in situ 281658717 Z95.0 146880 - Routine follow-up continued; medication adjustment discussed. Pain in right arm 743629 004 M79.601 453127 - Watch and wait strategy; potential referral if symptoms persist. Health Concerns Section Related Observation LastModified by Organization Detai ls LastModified Time None Recorded Concern Status LastModified by Organization Details LastModified Time None Recorded Advance Directives Directive None Recorded Payers Insurance Date Sequence Insurance Name Policy Number Policy Fu Covered Member ID Fu Member ID Guarantor Name 09/21/2025 [place] - [place] - [facility] (MEDICARE) Sam Boother [id number] Sam Adorno Asckonstantinbrecucaer 09/21/2025 1 [employer] (MEDICARE REPLACEMENT/A DVANTAGE - PPO) Sam Vogt [id number] Sam Cornejobregerald 05/01/2024 1 [place] - [place] A - [facility] (MEDICARE) Sam Adorno Asckonstantinbrecucaer [id number] Sam Adorno Asckonstantinbregerald 05/01/2024 1 [place]: [facility] ([facility]ITUTION[facility] L) Sam Vogt [id number] Sam Adorno Asckonstantinbregerald 05/01/2024 2 [employer] Sam Vogt [id number] Sam Vogt 09/21/2025 MEDICARE B[place]: [facility] aSm Adorno [place]ner [id number] 9 Sam Adorno Sin 05/01/2024 2 [facility] [employer] (MEDICARE SUPPLEMENT) Sam Adorno Sin [id number] Sam Adorno Sin Notes Date Note Type Note Provider Name and Address Organization Details Recorded Time 4 text/html This is a 73-year-old gentleman that comes in today for concerns of mass right under his right nipple. States that it has been present for the last 3 weeks and it is tender to palpation. Patient also reports that he has been having continued itching of his scrotum. Chet Hernandez MD [address] [place] [address], [phone], [facility] 05/01/2024 17:56:12 4 text/html Pt is wanting referral to Dr. Nichole. Pt states that he has a hernia that he has had for awhile. Patient reports that he has a bulging in his right inguinal canal and is very similar to his left sided hernia before he had it repaired. Patient states that it is reproducible but bothersome at times. Patient has been having occasional elevated blood pressure reading but not consistently elevated. Patient reports that he is fatigued, otherwise feels okay. Chet Hernandez MD [address] [place] [address], [phone], [facility] 05/20/2024 17:49:42 4 text/html ROS as noted in the HPI Pt reports symptoms started 2 days ago. Symptoms include difficulty voiding, burning with urination, urgency, voiding a small amount each time, vomiting, diarrhea, stronger odor than normal. Denies frequency, low back pain, nausea. Has increased water intake. NAVEEN DAHL [address] [place] [address], [phone], [facility] 07/14/2024 09:40:13 5 text/html Annual WellnessReported by PatientROS as noted in the HPI Pt here today for his annual wellness examHe did Cologuard 04/29/25 with negative resultPt had Cataract surgery in January other than that no changes in health, medications or otherwiseHe will see the hydroelectric station operator for a pacemaker/defibrillator in [place] on the He is not taking one of the medications the clothing presser prescribed because it is too expensive but he could not remember what medication that was Patient has rash on his abdomen. Patient states he is due for routine lab work. Patient denies any significant concerns except for some fatigue. Chet Hernandez MD [address] [place] [address], [phone], [facility] 05/19/2025 17:43:59 5 text/html The patient is a 74-year-old male presenting with right arm pain, candidal intertrigo, sleep difficulties, and follow-up on his pacemaker. The right arm pain began four days ago, described as a burning sensation in the upper part and leads to movement restrictions. Sleep disturbances are reported as frequent awakenings, with no significant energy level improvement post-pacemaker placement. The patient experienced some temporary relief after cardiac procedures but seeks further evaluation and management. A recurring rash in the groin suggests candidal intertrigo requiring topical treatment. He also mentions wishing to discuss his defibrillator management and medication adjustments. - Labs: Last blood work conducted at previous visit. Chet Hernandez MD [address] [place] [address], [phone], [facility] 09/24/2025 16:15:38
--- OUTSIDE RECORDS SUMMARY | 2025-11-05 18:11 | XMS_ITS | Encounter Summary ---
Author Organization [facility] Address [address] [place] [address] Phone Care Team Providers Care Information Systems Planner Name Role Phone Unavailable Primary Care Provider Unavailabl e Encounter Details Date Type Department Care Team (Late st Contact Info) Description 09/26/2025 [facility] [address] [place] [address] Social History Tobacco Use Types Packs/Day Years Used Date Smoking Tobacco: Never Assessed Sex and Gender Information Value Date Recorded Sex Assigned at Not on file Legal Sex Male 9:22 AM EST Gender Identity Not on file Sexual Orientation Not on file documented as of this encounter Plan of Treatment Upcoming Encounters Date Type Department Care Team (Late st Contact Info) Description 12/03/2025 1:00 PM CREDIT AUTHORIZER Office Visit [facility] [address] [place] [phone] Alondra Bond NP [address] [place] [address] documented as of this encounter Visit Diagnoses Not on filedocumented in this encounter
--- OUTSIDE RECORDS SUMMARY | 2025-11-05 18:11 | XMS_ITS | Clinical Summary ---
[facility] Organization [facility] Address [address] [place] [address] Phone Care Team Providers Care Umbrella Tipper Hand Name Role Phone Unavailable Primary Care Provider Unavailabl e Encounters Date Type Department Care Team Description 09/26/2025 Orders Only [facility], [facility] [address] [place] [address] 09/25/2025 Telephone [facility], [facility] [address] [place] [address] Stephany Busby MD 09/25/2025 Transcribe Orders [facility], [facility] [address] [place] [address] Bull Ridley MD Chronic kidney disease stage 3B (HCC) (Primary Dx); Heart failure with reduced ejection fraction (HCC) 09/25/2025 Telephone [facility], [facility] [address] [place] [address] Bull Ridley MD from Last 3 Months Social History Tobacco Use Types Packs/Day Years Used Date Smoking Tobacco: Never Assessed Sex and Gender Information Value Date Recorded Sex Assigned at Not on file Legal Sex Male 9:22 AM EST Gender Identity Not on file Sexual Orientation Not on file Plan of Treatment Upcoming Encounters Date Type Department Care Team (Late st Contact Info) Description 12/03/2025 1:00 PM GIMP BUTTONHOLE MACHINE OPERATOR Office Visit [facility], [facility] [address] [place] [address] Alondra Bond NP [address] [facility] [address] [place] [address] Health Maintenance Due Date Last Done Comments Colorectal Cancer Screening: Annual FOBT 1999 Colorectal Cancer Screening: Colonoscopy 1999 Colorectal Cancer Screening: Sigmoidoscopy 1999 Pneumococcal Vaccine: 50+ Ye ars (2 of 2 - PPSV23, PCV20, or PCV21) 06/17/2018 04/22/2018 Influenza Vaccine (#1) 2025 12/03/2023 Hepatitis B Vaccine Aged Out No longe r eligible based on patient's age to complete this topic [place] [address] Medicare
--- OUTSIDE RECORDS SUMMARY | 2025-11-05 18:11 | XMS_ITS | Encounter Summary ---
Author Organization [facility], [facility] Address [address] [address] Phone Care Team Providers Care Customer Sales Consultant Name Role Phone Unavailable Primary Care Provider Unavailabl e Reason for Referral * Consultation (Routine) - Authorized Specialty Diagnoses / Procedures Referred By Reji t Referred To Contact Nephrology Diagnoses Heart failure with reduced ejection fraction (HCC) Chronic kidney disease stage 3B (HCC) Bull Ridley MD [address] [facility] [address] [place] [phone] Phone: tel: fax: Stephany Busby MD [address] [facility] [address] [place] [address] Phone: tel: fax: Referral ID Status Reason Start Date Expiration Date Visits Requested Visits Authorized [id number] Authorized Consult and Treat 09/25/2025 09/25/2026 1 1 EXAMINING TECHNICIAN Encounter Details Date Type Department Care Team (Late st Contact Info) Description 09/25/2025 Transcribe Orders [facility] [address] [facility] [address] [place] [address] Bull Ridley MD [address] [place] [phone] Chronic kidney disease stage 3B (HCC) (Primary Dx); Heart failure with reduced ejection fraction (HCC) Social History Tobacco Use Types Packs/Day Years [...] st Contact Info) Description 12/03/2025 1:00 PM TAX EXAMINING TECHNICIAN Office Visit [facility], [facility] [address] [place] [phone] Alondra Bond NP [address] [facility] [address] [place] [phone] Scheduled Referrals Name Type Priority Associated Diagnoses Order Schedule Ambulatory referral to Nephrology Outpatient Referral Routine Heart failure with reduced ejection fraction (HCC) Chronic kidney disease stage 3B (HCC) Expected: 09/26/2025, Expires: 09/25/2026 documented as of this encounter Visit Diagnoses Diagnosis Chronic kidney disease stage 3B (HCC)- Primary Heart failure with reduced ejection fraction (HCC) documented in this encounter
--- OUTSIDE RECORDS SUMMARY | 2025-11-05 18:11 | XMS_ITS | Encounter Summary ---
Author Organization [facility] Address [address] [place] [address] Care Team Providers Care Airline Pilot/First Officer Name Role Phone Unavailable Primary Care Provider Unavailabl e Reason for Visit * Reason Onset Date Comments Referral 09/10/2023 Encounter Details Date Type Department Care Team (Late st Contact Info) Description 09/10/2023 Telephone [facility] [address] [facility] [address] [place] [phone] Provider, Abstract NO ADDRESS ON FILE Referral Social History Tobacco Use Types Packs/Day Years Used Date Smoking Tobacco: Never Assessed Sex and Gender Information Value Date Recorded Sex Assigned at Male 11/20/2023 3:21 PM LITIGATION ATTORNEY Legal Sex Male 9:11 AM CDT Gender Identity Male 11/20/2023 3:21 PM LITIGATION ATTORNEY Sexual Orientation Straight 11/20/2023 3: 21 PM LITIGATION ATTORNEY documented as of this encounter Miscellaneous Notes * Telephone Encounter - Marco Antonio Red - 09/10/2023 8:46 AM CDT TBD (Provider) Caller: Mehdi Briones, MESSAGE Mehdi Perry called to check on the referral that was sent 09/08/2023 [facility] Service Tech/Welder: Emmett Red documented in this encounter Plan of Treatment Upcoming Encounters Date Type Department Care Team (Late st Contact Info) Description 12/13/2025 8:30 AM LITIGATION ATTORNEY Procedure visit [facility] [address] [place] [phone] Josef Ma MD [address] [place] [phone] 12/24/2025 1:00 PM LITIGATION ATTORNEY Office Visit [facility] [address] [place] [phone] Josef Ma MD [address] [place] [phone] Luis Mistry, DANYEL [address] [place] [phone] 01/25/2026 12:40 PM CDT Office Visit [facility] [address] [place] [phone] Bull Ridley MD [address] [place] [phone] Radha Carey, NAVEEN [address] [place] [address] documented as of this encounter Visit Diagnoses Not on filedocumented in this encounter
--- OUTSIDE RECORDS SUMMARY | 2025-11-05 18:12 | XMS_ITS | Continuity of Care Document ---
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 Lab None recorded. Referral None recorded. Procedures polysomnogr aphy (PROC) [address] [address] [facility], [address] [place] [address], [address], [place], [address], 10:34:40 Surgeries None recorded. Imaging None recorded. Medication Orders trazodone 50 mg tablet 2024 025 [id number], [address], [place], [place], [id number], 11:58:47 clotrimazol e-betametha sone 1 %-0.05 % topical cream 2024 025 [id number], [address], [place], [place], [phone], 12:00:11 Patient TargetsNo targets recorded. Patient Instructions Encounter Date Encounter Id Patient Instructions Last Modified By Organization Details Last Modified Time 09/24/2025 [id number] - Start Trazodon e 1 hour before [...] Not available 09/24/2025 12:08:32 Reason for Referral None Reported. 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 H/O MITRAL VALVE REPLACEME NT; Recorded 3 11:25AM by Chet Hernandez MD, Office Visit; Promoted; acuity set as *; Not Available [facility] 4 05:12:53 Hypothyro idism 84895235 Active 2022 Not Available [facility] 4 05:12:53 Gastroeso phageal reflux disease 847837358 Active 2022 Not Available [facility] 4 05:12:53 Essential hypertens ion 18594201 Active 2022 Not Available [facility] 4 05:12:53 Atrial fibrillat ion 09486168 Active 2022 Not Available [facility] 4 05:12:53 Acute pyeloneph ritis 76134699 Active 2022 Not Available [facility] 4 05:12:53 Dyspnea on exertion 58621100 Active 2022 Not Available [facility] 4 05:12:53 Hypoparat hyroidism 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 4 09:00:30 Mass of right breast 97961110897 527536 Active 2023 Chet Hernandez MD [address] [place] [address], [phone] , [facility] 4 16:42:31 Right inguinal hernia 705321668 Active 2023 Chet Hernandez MD [address] [place] [phone] , [facility] 4 16:04:46 Tinea corporis 89635954 Active 2024 Chet Hernandez MD [address] [place] [phone] , [facility] 10:51:09 Insomnia 808352397 Active 2024 Chet Hernandez MD [address] [place] [address], [phone] , [facility] 11:57:39 Hypersomn ia 47262000 Active 2024 Chet Hernandez MD [address] [place] [address], [phone] , [facility] 11:58:25 Candidal intertrig o 026049444 Active 2024 Chet Hernandez MD [address] [place] [address], [phone] , [facility]. 11:59:51 Pain in right arm 677638750 Active 2024 Chet Hernandez MD [address] [place] [address], [phone] , [facility] 16:12:36 Notes:Some problems listed i n Documents: #[id number], #[id number], #[id number] could not be added to this patient's chart. Please review these documents and add these problems to the patient's chart manually as needed. Problem Notes None recorded. Procedures Surgical History Date Name Laterality Status Provider Name and Address Organization Details Recorded Time 04/27/20 25 colonoscopy completed NAVEEN DAHL [address] [place] [address], [phone], [facility], LTiffanyLTiffanyCTiffany 05/04/2025 07:30:00 01/15/20 25 extraction of cataract completed Ximena Laws [facility], BrittCTiffany 05/16/2025 10:25:01 Appendectomy completed ALEKSANDRA FRANCIS [facility], Kasi 04/01/2023 08:52:[address] [facility], [place] 04/01/2023 08:52:34 Hernia Repair completed [facility], [place] 04/01/2023 08:52:49 Arthrt acrmclv/strnclav jt completed [facility], [place] 04/01/2023 08:53:34 repair of mitral valve completed [facility], [place] 04/01/2023 10:41:16 Imaging Results None recorded. [...] meloxicam daily 08/10 completed 0; Recorded 11/26/19 23 11:04AM by Aleksandra Francis, Office Visit; Not Available Not Available Not Available fluoxetin e daily 08/10 completed 05223; Recorded 11/17/19 23 11:07AM by Aleksandra Francis (Authori zed through Chet Hernandez MD), Refill Request; Refill Quantity : 90; Capsule; Not Available Not Available Not Available lisinopri l-hydroch lorothiaz phill daily 08/10 completed VO CH/ab; Recorded 11/27/19 23 8:37AM by Chet Hernandez MD, Office Visit; [...] Not Available Vitals Date Recorded Body height Body mass index (BMI) Body weight Body temperature Oxygen saturation Heart rate Systolic And Diastolic Provider Name and Address Organization Details Last Updated DateTime 180.34 cm 22.3 kg/m2 66418.7 8 g 98.9 [degF] 98 % 91 /min 106/72 mm[Hg] [facility] 11:32:49 Social History Question Answer Notes LastModified by Organizat ion Details LastModified Time Tobacco Smoking Status Former Smoker ALEKSANDRA FRANCIS [facility] 01/28/2023 13:15:35 What Is Your Level Of Caffeine Consumption? Moderate Information not available 01/28/2023 When Did You Quit Smoking? 16+yearssincel astcigarette Information not available 01/28/2023 What Was The Date Of Your Most Recent Tobacco Screening? 09/24/2025 [email or web address] Information not available 09/24/2025 At What Age Did You Start Smoking Tobacco? 20 Information not available 01/28/2023 Have You Recently Traveled Abroad? No Information not available 01/28/2023 Sex: Unknown Functional Status Question Answer Note LastModified by Organizat ion Details LastModified Time Do you use any illicit or recreational drugs? No Information not available 01/28/2023 What is your level of alcohol consumption? None [email or web address] Information not available 09/24/2025 Mental Status None [...] virus, trivalent, preservative 6 completed Not Available [facility] 11/19/2023 05:12:54 Influenza, split virus, trivalent, preservative 3 completed Not Available [facility] 11/19/2023 05:12:54 Influenza, split virus, trivalent, preservative 7 completed Not Available [facility] 11/19/2023 05:12:54 Influenza, split virus, trivalent, preservative 4 completed [facility] 07/12/2024 14:03:08 Influenza, high-dose, trivalent, PF 4 completed Not Available [facility] 09/24/2025 11:11:57 Past Encounters Encounter ID Performer Location Encounter Start Date Encounter Closed Date Diagnosis/Indication Diagnosis SNOMED-CT Code Diagnosis ICD10 Code Diagnosis IMO Codes Diagnosis Note [id number] Chet Hernandez MD [facility] ([facility]) [address] [place] [address] 09/24/2025 11:08:00 09/24/2025 12:27:59 Insomnia 152551151 G47.00 [id number] - Trazodone prescribed ; consider sleep study for sleep apnea. Hypersomnia 81733929 G47 .10 47411 - Considerat ion in context of insomnia. Candidal intertrigo 2661 16917 B37.2 09285 - Topical prescripti on refilled. Cardiac pa arlene in situ 299506384 Z95.0 778106 - Routine follow-up continued; medication adjustment discussed. Pain in right arm 695059 004 M79.601 612262 - Watch and wait strategy; potential referral if symptoms persist. Health Concerns Section Related Observation LastModified by Organization Detai ls LastModified Time None Recorded Concern Status LastModified by Organization Details LastModified Time None Recorded Payers Encounter Date Sequence Insurance Name Policy Number Policy Fu Covered Member ID Fu Member ID Guarantor Name 09/24/2025 1 [employer] (MEDICARE REPLACEMENT /ADVANTAGE - PPO) Sam Vogt [id number] Sam Vogt Notes Date Note Type Note Provider Name and Address Organization Details Recorded Time 09/24/2025 text/html The patient is a 74-year-old male [...] conducted at previous visit. Chet Hernandez MD [address] [place] [address], [phone], [facility] 09/24/2025 16:15:38
--- OUTSIDE RECORDS SUMMARY | 2025-11-05 18:12 | XMS_ITS | Clinical Summary ---
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 3 Active levothyroxine 150 mcg tablet Take 150 mcg by mouth daily. 3 Active ALBUTEROL SULFATE INHALATION Take 90 mcg by inhalation 4 times daily. prn Active atorvastatin (LIPITOR) 20 mg tablet Take 20 mg by mouth daily. Active calcitRIOL (ROCALTROL) 0.5 mcg capsule Take 0.5 mcg by mouth 2 times daily. Active fluoxetine HCl (FLUOXETINE ORAL) Take 40 mg by mouth daily. Active magnesium L-lactate (MAGTAB) 84 mg Tablet Sustained Release Take 84 mg by mouth daily. Active omeprazole (PriLOSEC) 40 mg Capsule, Delayed Release(E.C.) Take 40 mg by mouth daily. Active tamsulosin (FLOMAX) 0.4 mg capsule Take 0.4 mg by mouth 2 times daily. Active apixaban (Eliquis) 5 mg tablet Take 1 Tablet (5 mg) by mouth 2 times daily. 60 Tablet 6 05/30/2025 4:12 PM CDT 5 Active bumetanide (BUMEX) 1 mg tablet Take 1 Tablet (1 mg) by mouth every third day. 90 Tablet 5 Active spironolactone (ALDACTONE) 25 mg tablet Take 0.5 Tablets (12.5 mg) by mouth daily. 90 Tablet 3 Active losartan (COZAAR) 25 mg tablet Take ONE-HALF tablet (12.5 mg) by mouth daily. 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 Acute on chronic combined sy stolic and diastolic CHF, NYHA class 3 01/08/2024 Stage 3b chronic kidney disease (CKD) 01/06/2024 Persistent atrial fibrillation 01/06/2024 Acute on chronic congestive heart failure 2023 Cardiomyopathy 12/30/2023 Atrial fibrillation 12/27/2023 Right renal stone 11/15/2023 Hypomagnesemia 11/13/2023 Hematuria 11/13/2023 Moderate protein-calorie malnutrition 11/10/2023 HFrEF (heart failure with reduced ejection fract ion) 11/09/2023 AF (atrial fibrillation) 11/09/2023 Left atrial thrombus 11/09/2023 Gross hematuria 11/09/2023 Encounters Date Type Department Care Team Description 09/20/2025 10:30 AM SIDE SEAM TENDER Office Visit [facility] [address] [place] [phone] Bull Ridley MD ICD (implantable cardioverter-defibrill ator) in place (Primary Dx); Persistent atrial fibrillation (CMS/HCC); HFrEF (heart failure with reduced ejection fraction) ([facility]/HCC); Stage 3b chronic kidney disease (CKD) ([facility]/HCC) 09/12/2025 2:21 PM SIDE SEAM TENDER - 09/12/2025 4:04 PM SIDE SEAM TENDER Surgery [facility] [address] [address] [place] [phone] Josef Ma MD AV Node Ablation 09/12/2025 2:08 PM SIDE SEAM TENDER Anesthesia Event [facility] [address] [place] [phone] Aniceto Dick MD Rowland, Debra A, CRNA 09/12/2025 11:57 AM SIDE SEAM TENDER - 09/12/2025 6:32 PM SIDE SEAM TENDER Hospital Encounter [facility] [address] [place] [phone] Josef Ma MD ICD (implantable cardioverter-defibrill ator) in place Discharge Disposition: Home or Self Care 09/07/2025 Prep for Surgery [facility] [address] [place] [phone] Josef Ma MD Atrial fibrillation, unspecified type (CMS/HCC) (Primary Dx); Implantable cardioverter-defibrill ator (ICD) in situ; ICD (implantable cardioverter-defibrill ator) in place 09/07/2025 Telephone [facility] [address] [place] [phone] Patrica Fowler RN Follow Up; Needs Appointment 09/06/2025 1:00 PM CDT Procedure visit [place] [address] [address] [facility] [address] [place] [phone] Alonso Kulkarni MD Mahata, Indrajeet, MD Atrial fibrillation, unspecified type (CMS/HCC) (Primary Dx); Nonischemic dilated cardiomyopathy (CMS/HCC) 09/06/2025 12:45 PM CDT Office Visit [facility] [address] [facility] [address] [place] [phone] Josef Ma MD Nonischemic dilated cardiomyopathy (CMS/HCC) (Primary Dx) 08/31/2025 Orders Only [place] [address] [facility] [address] [place] [phone] Josef Ma MD Atrial fibrillation, unspecified type (CMS/HCC) (Primary Dx) from Last 3 Months Immunizations Immunization Administration Dates Next Due (PREVNAR 13)(6 WKS UP) PNEUM OCOCCAL CONJUGATE (PCV13) 0.5 ML, IM 04/22/2018 Influenza Seasonal Unspecifi ed Formulation IM 2023,08/10/2017,08/18/2016,2013,08/31/2013 Influenza Vaccine High Dose 65+ Yrs IM 12/03/2023 Social History Tobacco Use Types Packs/Day Years Used Date Smoking Tobacco: Former Cigarettes 1 21 S tarted: 1979 Smokeless Tobacco: Never Tobacco Cessation:Counseling Given: Not Answered Alcohol Use Standard Drinks/Week Comments Never 0 (1 standard drink = 0.6 oz pur e alcohol) [facility] Utilities Answer Date Recorded In the past 12 months has [employer], [employer], oil, or water [employer] threatened to shut off services in your home? No 04/24/2024 Social Connections Answer Date Recorded In a typical week, how many times do you talk on the telephone with family, friends, or neighbors? More than three times a week 04/24/2024 How often do you get togethe r with friends or relatives? Twice a week 04/24/2024 How often do you attend [facility] or moravian services? Never 04/24/2024 Do you belong to any clubs o r organizations such as amish groups, unions, fraternal or athletic groups, or school groups? No 04/24/2024 How often do you attend meet ings of the clubs or organizations you belong to? Never 04/24/2024 Are you , , di vorced, , never , or living with a partner? 04/24/2024 Financial Resource Strain Answer Date R ecorded How hard is it for you to pa y for the very basics like food, housing, medical care, and heating? Somewhat hard 04/24/2024 Food Insecurity Answer Date Recorded In the past 12 months, have you worried that your food would run out before you had money to buy more? Often true 04/24/2024 In the past 12 months, did y ou run out of food and didn't have money to buy more? Never true 04/24/2024 Transportation Needs Answer Date Record ed In the past 12 months, has l ack of transportation kept you from medical appointments or from getting medications? No 04/08 In the past 12 months, has l ack of transportation kept you from meetings, work, or from getting things needed for daily living? No 04/24/2024 Housing Stability Answer Date Recorded In the last 12 months, was t here a time when you were not able to pay the mortgage or rent on time? No 04/24/2024 Number of Times Moved in the Last Year Not on fi le 04/24/2024 Unstable Housing in the Last Year Not on file 04/24/2024 Feeling Safe Answer Date Recorded Are you in a relationship wi th someone who hurts you emotionally and/or physically? No 09/11/2025 Food Insecurity Answer Date Recorded Patient needs follow up regardin 05/29/2025 Transportation Needs Answer Date Record ed Patient needs follow up regardin 05/29/2025 Housing Stability Answer Date Recorded Social/Environmental Concerns No concerns Utility Needs Answer Date Recorded Patient needs follow up regardin 05/29/2025 Sex and Gender Information Value Date Recorded Sex Assigned at Male 11/20/2023 3:21 PM SIDE SEAM TENDER Legal Sex Male 9:11 AM CDT Gender Identity Male 11/20/2023 3:21 PM SIDE SEAM TENDER Sexual Orientation Straight 11/20/2023 3: 21 PM SIDE SEAM TENDER Last Filed Vital Signs Vital Sign Reading Time Taken Comments Blood Pressure 100/62 09/20/2025 9:54 AM SIDE SEAM TENDER Pulse 93 09/20/2025 9:54 AM SIDE SEAM TENDER Temperature 36.5 C (97.7 F) 09/12/2025 3:40 PM SIDE SEAM TENDER Respiratory Rate 23 09/12/2025 6:00 PM SIDE SEAM TENDER Oxygen Saturation 98% 09/20/2025 9:54 AM SIDE SEAM TENDER Inhaled Oxygen Concentration - - Weight 72.5 kg (159 lb 12.8 oz) 09/20/2025 9:54 AM SIDE SEAM TENDER Height 180.3 cm (5' 11 ) 09/20/2025 9:54 AM SIDE SEAM TENDER Body Mass Index 22.29 09/20/2025 9:54 AM SIDE SEAM TENDER Plan of Treatment Upcoming Encounters Date Type Department Care Team (Late st Contact Info) Description 12/13/2025 8:30 AM SIDE SEAM TENDER Procedure visit [facility] [address] [place] [address] [phone] Josef Ma MD [address] [place] [address] [phone] 12/24/2025 1:00 PM SIDE SEAM TENDER Office Visit [facility] [address] [place] [phone] Josef Ma MD [address] [place] [address] [phone] Luis Mistry, ANP [address] [place] [address] [phone] 01/25/2026 12:40 PM CDT Office Visit [facility] [address] [place] [address] [phone] Bull Ridley MD [address] [place] [phone] Radha Carey, AUTOMOTIVE GLAZIER [address] [place] [phone] Health Maintenance Due Date Last Done Comments DTAP/TDAP/TD VACCINES (1 - Tdap) 1969 FIT-DNA Q 3 years 1995 FIT/FOBT Q 1 year 1995 Flex Sig/CT Colonography Q 5 years 1995 RSV VACCINE (60+ or ) (1 - Risk 50-74 years 1-dose series) 2000 ZOSTER VACCINE (1 of 2) 2000 Abdominal Aortic Aneurysm (A AA) Screening 2015 PNEUMOCOCCAL VACCINE 50+ YEA RS (2 of 2 - PPSV23, PCV20, or PCV21) 06/17/2018 04/22/2018 INFLUENZA VACCINE (#1) 2025 4, 12/03/2023, 08/10/2017, Additional history exists COLORECTAL SCREENING 04/27/2035 04/27/2025 Colorectal Cancer Screening 04/27/2035 Medical Devices Implanted Type Area Development Administrator Device Identifier Shelf Expiration Date Model / Serial / Lot Framing Mill Operator Helper-D [place] Xt Hf Quad Mri [id number] Df4 Surescan [id number] - [id number] Implanted:Qty : 1 on 05/30/2025 by Josef Ma MD at [facility] Defibrillator Left: Chest Wall [employer]- CARD RHYTHM MGMT [id number] 09/04/2026 [id number] / [id number] / Lead Attain 88cm St Vent Quad [id number] - [id number] Implanted:Qty : 1 on 05/30/2025 by Josef Ma MD at [facility] Lead Left: Chest Wall [employer]- CARD RHYTHM MGMT [id number] 04/06/2027 [id number] / [id number] [id number] / Lead Sprint Quattro Secure 62cm [id number] - Csc - [id number] Implanted:Qty : 1 on 05/30/2025 by Josef Ma MD at [facility] Lead Left: Chest Wall [employer]- CRM - BULK BUY [id number] 03/07/2027 [id number] / [id number] / Stent Contour [id number] - [id number] Implanted:Qty : 1 on 11/15/2023 by Alejandra Stack MD at [facility] Stent Right: Ureter [employer]- UROLOGY/UTILIZATION REVIEW COORDINATOR [id number] 06/28/2026 [id number] / / [id number] Procedures Procedure Name Priority Date/Time Associated Diagnosis Comments DC PRGRMG EVAL IMPLANTABLE IN PRSN DUAL LEAD DFB Routine 09/19/2025 10:16 AM SIDE SEAM TENDER Atrial fibrillation, unspecified type (CMS/HCC) Nonischemic dilated cardiomyopathy (CMS/HCC) TELEMETRY REPORT 09/13/2025 9:23 AM SIDE SEAM TENDER AV NODE ABLATION W ANES Routine 09/12/2025 3:18 PM SIDE SEAM TENDER ICD (implantable cardioverter-defibri llator) in place A-fib (CMS/HCC) ANESTHESIA AIRWAY Routine 09/12/2025 2:2 9 PM SIDE SEAM TENDER BASIC METABOLIC PANEL Routine 09/12/2025 12:26 PM SIDE SEAM TENDER PROTIME-INR Routine 09/12/2025 12:26 PM SIDE SEAM TENDER CBC WITH DIFFERENTIAL Routine 09/12/2025 12:26 PM SIDE SEAM TENDER EKG 12-LEAD Pending Discharge 09/12/2025 12:13 PM SIDE SEAM TENDER from Last 3 Months Results * DC PRGRMG EVAL IMPLANTABLE IN PRSN DUAL LEAD DFB (09/19/2025 10:16 AM SIDE SEAM TENDER) Narrative [facility] - 09/19/2025 10:16 AM SIDE SEAM TENDER Vaishnavi Kelly 09/19/2025 10:16 AM Office Device Check By Vendor Lpn Medical Assistant Date of Procedure: September 06, 2025 Development Administrator: [employer] Comments: Office check by [employer] digital sales representative in conjunction w/ EP office visit. Interrogation reviewed by provider. Please see scan for details. Procedure Note Vaishnavi Kelly - 09/19/2025 10:16 AM CST Office Device Check By Vendor Lpn Medical Assistant Date of Procedure: September 06, 2025 Development Administrator: [employer] Comments: Office check by [employer] digital sales representative in conjunction w/ EPoffice visit. Interrogation reviewed by provider. Please see scan for details. us Josef Ma MD CARDIAC SERVICES ORDERABLES Final Result [facility] [address] [facility] [facility] [place] [address] * TELEMETRY REPORT (09/13/2025 9:23 AM SIDE SEAM TENDER) us Provider Scanning ECG ORDERABLES Final Result * AV NODE ABLATION W ANES (09/12/2025 3:18 PM SIDE SEAM TENDER) Narrative [facility] - 09/14/2025 8:00 AM SIDE SEAM TENDER Procedure Details [facility] Comprehensive Electrophysiology Study Procedures: 1. Right Femoral Vein Access x 1 2. Device Interrogation and Programming 3. Radiofrequency Ablation of AV Node Operators: 1. Josef Ma MD Indication: Symptomatic atrial fibrillation Procedure Description: After the patient was informed and consented with regards to the risk, benefits, and alternatives to the procedure, the patient was brought to the EP lab in a non- fed, fasted state. The device was interrogated and set to VVI with a base rate of 40 bpm. The right groin is prepped and draped in usual sterile fashion and conscious sedation was administered. Lidocaine local anesthesia was infiltrated. Using modified Seldinger technique, access was obtained in the right femoral vein x 1. A SR-O sheath, under fluoroscopic guidance was placed in the right atrium, using the decapolar his catheter electroanatomic map was created. This catheter was switched for the ablation catheter. Sapphire 8 mm catheter was used to map the area of the AV node. Radiofrequency energy was delivered at 60C at 50 W for 45 secs, in an area of a large artrial signal, small His bundle signal and ventricular signal with production of an accelerated junctional rhythm followed by the onset of complete heart block. Complete heart block persisted during subsequent period of observation. The device was re-interrogated and set to DDD 80 bpm, the plan will be to decrease the rate to 70 in the month . EBL 20 ml Complications: NONE Summary: 1. Successful radiofrequency ablation of the AV Node 2. Device reprogramming performed Josef Ma MD CUP EP ORDERABLES Final Resu lt [facility] [id number] [address] [facility] [address] [place] [address], * Airway (09/12/2025 2:29 PM SIDE SEAM TENDER) Narrative Bonnie Pozo CRNA - 09/12/2025 2:29 PM SIDE SEAM TENDER Bonnie Pozo CRNA 09/12/2025 2:29 PM Airway Date/Time: 09/12/2025 2:29 PM Staffing Authorized by: Aniceto Dick MD Performed by: Bonnie Pozo CRNA Final Airway Details: Final Airway Type: Mask Aniceto Dick MD PROCEDURE/MINOR SURGICAL ORDERA BLES Final Result * (ABNORMAL) CBC WITH DIFFERENTIAL (09/12/2025 12:26 PM SIDE SEAM TENDER) Pathologist [facility] WBC 4.8 4.8 - 10.8 K/uL 09/12/2025 12:46 PM SIDE SEAM TENDER [facility] RBC 4.56(L) 4.60 - 6.20 M/uL 09/12/2025 12:46 PM [facility] HEMOGLOBIN 12.1(L) 14.0 - 18.0 g/dL 09/12/2025 12:46 PM [facility] HEMATOCRIT 38.1(L) 41.0 - 53.0 % 09/12/2025 12:46 PM [facility] MCV 83.6(L) 84.0 - 103.0 fL 09/12/2025 12:46 PM [facility] MCH 26.5(L) 27.0 - 34.0 pg 09/12/2025 12:46 PM [facility] MCHC 31.8 30.0 - 35.0 g/dL 09/12/2025 12:46 PM [facility] PLATELETS 322 140 - 440 K/uL 09/12/2025 12:46 PM [facility] MPV 10.7 8.9 - 12.8 fL 09/12/2025 12:46 PM [facility] RDW 15.5(H) 11.0 - 14.5 % 09/12/2025 12:46 PM [facility] RDW-STDEV 46.7 37.0 - 54.0 fL 09/12/2025 12:46 PM [facility] NEUTROPHILS 66 42 - 75 % 09/12/2025 12:46 PM [facility] LYMPHOCYTES 18(L) 24 - 44 % 09/12/2025 12:46 PM [facility] MONOCYTES 8 2 - 10 % 09/12/2025 12:46 PM [facility] EOSINOPHILS 5 0 - 7 % 09/12/2025 12:46 PM [facility] BASOPHILS 2(H) 0 - 1 % 09/12/2025 12:46 PM [facility] IMMATURE GRANULOCYTES 0 0 - 2 % 09/12/2025 12:46 PM [facility] NEUTROPHIL ABSOLUTE 3.14 2.00 - 8.00 K/uL 09/12/2025 12:46 PM [facility] LYMPHOCYTE ABSOLUTE 0.88(L) 1.20 - 4.00 K/uL 09/12/2025 12:46 PM [facility] MONOCYTE ABSOLUTE 0.40 0.10 - 0.60 K/uL 09/12/2025 12:46 PM [facility] EOSINOPHIL ABSOLUTE 0.26 0.00 - 0.70 K/uL 09/12/2025 12:46 PM [facility] BASOPHILS ABSOLUTE 0.10 0.00 - 0.20 K/uL 09/12/2025 12:46 PM [facility] IMMATURE GRANULOCYTES ABSOLUTE 0.01 0.00 - 0.10 K/uL 09/12/2025 12:46 PM [facility] SMEAR REVIEWED: NA - Not Applicable 09/12/2025 12:46 PM [facility] Blood Venipuncture / Unknown 09/12/2025 12:26 PM SIDE SEAM TENDER 09/12/2025 12:37 PM SIDE SEAM TENDER us Josef Ma MD HEMATOLOGY ORDERABLES Final Result [facility] CLIA # [id number] [facility] [address] [place] [address] * (ABNORMAL) PROTIME-INR (09/12/2025 12:26 PM SIDE SEAM TENDER) PROTIME 17.3(H) 12.7 - 14.9 Seconds 09/12/2025 12:54 PM [facility] INR 1.3(H) 0.8 - 1.2 09/12/2025 12:54 PM [facility] Blood Venipuncture / Unknown 09/12/2025 12:26 PM SIDE SEAM TENDER 09/12/2025 12:37 PM SIDE SEAM TENDER Narrative [facility] - 09/12/2025 12:54 PM SIDE SEAM TENDER Expected Values for INR: DVT/PE Goal INR 2.5; range 2.0 - 3.0 Valve Replacement Tissue Goal INR 2.5; range 2.0 - 3.0 Valve Replacement Mechanical Goal INR 3.0; range 2.5 - 3.5 POST-AL Goal INR 2.5; range 2.0 - 3.0 or Goal INR 3.0; range 2.5 - 3.5 Atrial Fibrillation Goal INR 2.5; range 2.0 - 3.0 Ischemic Stroke Goal INR 2.5; range 2.0 - 3.0 us Josef Ma MD HEMATOLOGY ORDERABLES Final Result [facility] CLIA # [id number] [address] [address] [place] [address] * (ABNORMAL) BASIC METABOLIC PANEL (09/12/2025 12:26 PM SIDE SEAM TENDER) SODIUM 141 136 - 145 mmol/L 09/12/2025 1:08 PM [facility] POTASSIUM 4.1 3.5 - 5.1 mmol/L 09/12/2025 1:08 PM [facility] CHLORIDE 101 98 - 107 mmol/L 09/12/2025 1:08 PM [facility] CO2 24 22 - 29 mmol/L 09/12/2025 1:08 PM [facility] CALCIUM 7.4(L) 8.8 - 10.2 mg/dL 09/12/2025 1:08 PM [facility] BUN 17 8 - 23 mg/dL 09/12/2025 1:08 PM [facility] CREATININE 1.86(H) 0.67 - 1.17 mg/dL 09/12/2025 1:08 PM [facility] Comment:The GFR result is no t clinically significant on patients <18 or >70 years of age. GLUCOSE 113(H) 74 - 99 mg/dL 09/12/2025 1:08 PM [facility] GFR 38 mL/min/1. 73 sq meter 09/12/2025 1:08 PM [facility] Comment:eGFR calculated with 2020 CKD-EPI equation. Vegetarian diet, extremely high or low muscle mass, and may affect results. Cystatin C with Glomerular Filtration Rate is a suitable alternative for these patients. ANION GAP 16 9 - 20 mmol/L 09/12/2025 1:08 PM [facility] Blood Venipuncture / Unknown 09/12/2025 12:26 PM SIDE SEAM TENDER 09/12/2025 12:37 PM SIDE SEAM TENDER us Josef Ma MD CHEMISTRY ORDERABLES Final R esult [facility] # [id number] [address] [place] [address] * EKG 12-LEAD (09/12/2025 12:13 PM SIDE SEAM TENDER) 09/12/2025 12:1 3 PM SIDE SEAM TENDER Narrative INTERFACE SYSTEM - 09/13/2025 7:47 PM SIDE SEAM TENDER [address] [address] Test Date: 2025-09-12 Pat Name: MILY SILVA Department: 12 Room: [place] [address] 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: [id number] : 1950 Requested By: Order Number: [id number] Reading MD: Leonor Lu Measurements Intervals [place] Rate: 100 P: -13 DC: 406 QRS: -7 QRSD: 154 T: -83 QT: 342 QTc: 441 Interpretive Statements AV dual-paced rhythm with prolonged AV conduction with frequent ventricular-paced complexes Abnormal ECG Electronically Signed On 09-13-2025 19:47:34 SIDE SEAM TENDER by Leonor Lu Procedure Note Leonor Lu MD - 09/13/[address] [address] Test Date: 2025-09-12 Pat Name: MILY SILVA Department: 12 Room: [facility] 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: [id number] : 1950 Requested By: Order Number: [id number] Reading MD: Leonor Lu Measurements Intervals [place] Rate: 100 P: -13 DC: 406 QRS: -7 QRSD: 154 T: -83 QT: 342 QTc: 441 Interpretive Statements AV dual-paced rhythm with prolonged AV conduction with frequent ventricular-paced complexes Abnormal ECG Electronically Signed On 09-13-2025 19:47:34 SIDE SEAM TENDER by Leonor Lu us Josef aM MD ECG ORDERABLES Final Result INTERFACE SYSTEM Refer to clinic/hospital department from Last 3 Months Insurance [employer] PPO [facility] Member Subscriber Plan / Payer (Ef fective 2025-Present) Name:MILY SILVA Relation to Subscriber:Self Name:MILY SILVA Payer ID:Not on file Type:PPO Address: [place] [id number] [employer] Commercial Advance Directives For more information, please contact: [phone] Documents on File Type Date Recorded Patient Lpn Medical Assistant Expl anation Advance Directive POA 11/10/2023 2:09 PM Ad patterson Directive POA * Full Code (Latest Code Status on File) Date Activated Date Inactivated Comments 09/12/2025 12:01 PM 09/12/2025 8:32 PM * Full Code Date Activated Date Inactivated Comments 05/30/2025 11:13 AM 05/30/2025 6:28 PM * Full Code Date Activated Date Inactivated Comments 05/30/2025 5:55 AM 05/30/2025 11:13 AM * Full Code Date Activated Date Inactivated Comments 05/30/2025 5:55 AM 05/30/2025 5:55 AM * Full Code Date Activated Date Inactivated Comments 01/07/2024 8:18 AM 01/13/2024 4:20 PM
--- NOTE | 2025-11-05 18:31 | ECG_ITS ---
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 Measurements Intervals [place] Rate: 84 P: 0 OR: 0 QRS: -57 QRSD: 210 T: 122 QT: 523 QTc: 620 Interpretive Statements ELECTRONIC VENTRICULAR PACEMAKER VENTRICULAR PACED RHYTHM TECHNICALLY POOR TRACING INTERPRETATION BASED ON A DEFAULT AGE OF 40 YEARS Compared to ECG 12/27/2023 09:11:09 VENTRICULAR PACING IS NEW Electronically Signed On 11-08-2025 16:19:30 RELATIONSHIP CONSULTANT by Rodolfo Lopez M.D. [email or web address] [id number]
--- NOTE | 2025-11-05 18:46 | CTR_ITS ---
PROCEDURE INFORMATION: Exam: CT Head Without Contrast Exam date and time: 11/05/2025 7:07 PM Age: 74 years old Clinical indication: Other: L arm numb TECHNIQUE: Imaging protocol: Computed tomography of the head without contrast. Radiation optimization: All CT scans at this facility use at least one of these dose optimization techniques: automated exposure control; mA and/or kV adjustment per patient size (includes targeted exams where dose is matched to clinical indication); or iterative reconstruction. COMPARISON: CT head wo con* [id number] 01/27/2023 8:31 PM RADIATION DOSE METRICS: Total DLP (mGy-cm): 1185.1 FINDINGS: Brain: Chronic small-vessel ischemic change. Few lacunar foci in the basal ganglia, nonspecific although commonly chronic. Encephalomalacia changes in the region of the left caudate. Cerebral ventricles: Involutional changes of the ventricles and sulci, [id number]. Paranasal sinuses: Visualized sinuses are unremarkable. No fluid levels. Mastoid air cells: Visualized mastoid air cells are well aerated. Bones: Unremarkable. No acute fracture. Soft tissues: Unremarkable. CT/CT head wo con* [id number] IMPRESSION: No definite acute intracranial abnormality. If high clinical suspicion for acute ischemia, MRI would be more sensitive.
--- NOTE | 2025-11-05 18:46 | XRR_ITS ---
PROCEDURE INFORMATION: Exam: XR Chest Exam date and time: 11/05/2025 6:58 PM Age: 74 years old Clinical indication: Other: Weakness; Prior surgery; Surgery date: 1-6 months; Surgery type: Pacer; Additional info: Dyspnea/cough TECHNIQUE: Imaging protocol: Radiologic exam of the chest. Views: 1 view. COMPARISON: CR XR chest 1V portable [id number] 12/27/2023 10:49 AM FINDINGS: Tubes, catheters and devices: Left chest cardiac rhythm device. Lungs: Unremarkable. No consolidation. Pleural spaces: Unremarkable. No pleural effusion. No pneumothorax. Heart/Mediastinum: Post cardiac surgery residuals. [id number]-[id number] cardiomegaly. Bones/joints: Postsurgical changes of right shoulder. XR/XR chest 1V portable [id number] IMPRESSION: No definite acute infiltrate or effusion.
--- NOTE | 2025-11-05 19:08 | W.ED.GENADLT ---
HPI - General Adult General: Chief complaint: General Medical Stated complaint: Cant Pamela Maker\Sob\Hand and Arms Numb on Left Time Seen by Provider: 11/05/25 18:46 History of Present Illness: 74-year-old male presents emergency room complaining of shortness of breath sudden feeling of weakness that began while he was shopping. Patient has a history atrial fibrillation he is on apixaban. Initially stated his hands were numb on the left later told us it was on both left and right. When initially seen the patient did an NIH score which was 0. Associated symptoms: Reports malaise; Deny chest pain, dyspnea or rash Related Data Home Medications ?Medication ?Instructions ?Recorded ?Confirmed calcitriol 0.5 mcg capsule 0.5 mcg PO BID 01/27/23 12/27/23 amlodipine 10 mg tablet 10 mg PO DAILY 08/19/23 12/27/23 omeprazole 40 mg capsule,delayed 40 mg PO DAILY 08/19/23 12/27/23 release hydralazine 25 mg tablet 25 mg PO TID 12/02/23 12/27/23 isosorbide dinitrate 10 mg tablet 10 mg PO TID 12/02/23 12/27/23 levothyroxine 150 mcg tablet 150 mcg PO DAILY 12/02/23 12/27/23 propranolol 40 mg tablet 40 mg PO BID 12/02/23 12/27/23 magnesium L-lactate 84 mg 84 mg PO DAILY 12/27/23 12/27/23 tablet,extended release (Magtab) metoprolol succinate 50 mg 50 mg PO BID 12/27/23 12/27/23 tablet,extended release 24 hr Previous Rx's ?Medication ?Instructions ?Recorded atorvastatin 20 mg tablet 20 mg PO DAILY 30 days #30 tabs 01/30/23 fluoxetine 40 mg capsule 40 mg PO DAILY 30 days #30 caps 01/30/23 tamsulosin 0.4 mg capsule 0.4 mg PO BID 30 days #60 caps 01/30/23 CAM Boot #1 ea 05/18/23 apixaban 5 mg tablet (Eliquis) 5 mg PO BID #180 tabs 10/30/24 Allergies Allergy/AdvReac Type Severity Reaction Status Date / Time No Known Allergies Allergy Verified 11/05/25 18:26 Review of Systems Const: Reports: chills, fatigue and malaise; Denies: fever(s) Card: Denies: chest pain Resp: Denies: dyspnea GI: Denies: abdominal pain : Denies: dysuria, urinary frequency or urinary urgency Musc: Denies: neck pain or back pain Skin/Breast: Denies: rash PFSH ED PFSH: Medical History History of recurrent UTIs History of hypertension History of BPH Surgical History History of appendectomy History of hernia surgery H/O mitral valve repair Family History Mother CAD (coronary artery disease) Rheumatic heart disease Father CAD (coronary artery disease) Social History Smoking and tobacco/nicotine status: former use of tobacco/nicotine Alcohol intake: never Substance/Drug Use: never Physical Exam Const: COMMON NORMALS: no acute distress GENERAL APPEARANCE: cooperative and comfortable ORIENTATION/CONSCIOUSNESS: Yes awake, Yes oriented to person, Yes oriented to place and Yes oriented to time HENMT: COMMON NORMALS: normocephalic, atraumatic and hearing grossly normal bilaterally HEAD & SCALP: normocephalic and atraumatic Resp: COMMON NORMALS: normal respiratory effort, No retractions, No use of accessory muscles and clear to auscultation bilaterally AUSCULTATION: clear to auscultation bilaterally Cardio: COMMON NORMALS: regular rate, regular rhythm and No murmurs present (Cardio) RATE: regular rate RHYTHM: regular rhythm GI: COMMON NORMALS: Soft to palpation and No hepatosplenomegaly present AUSCULTATION: Yes normoactive bowel sounds PALPATION: Yes Soft to palpation, No Tenderness to palpation present (GI), No Guarding due to palpation present (GI) and Yes No hepatosplenomegaly present Extremity: COMMON NORMALS: normal to inspection, capillary refill normal, no clubbing, cyanosis or edema, no calf tenderness and no pedal edema Neuro: SENSORIUM/ORIENTATION: Yes oriented to person, Yes oriented to place and Yes oriented to time Skin: COMMON NORMALS: no rashes or lesions noted GENERAL SKIN EXAM: no rashes or lesions noted Course Vital Signs: Vital signs: Vital Signs Temperature 97.7 F 11/05/25 18:15 Pulse Rate 80 11/05/25 22:59 Blood Pressure 135/90 11/05/25 22:59 Pulse Oximetry 96 11/05/25 22:59 Oxygen Delivery Me thod Room Air 11/05/25 22:30 MDM - General Adult Medical Decision Making Patient presents generally not feeling well feeling weak. Laboratory test reviewed white count normal hemoglobin stable. His creatinine is increased to 2.2 his baseline is 1 4-1 5. BUN is 17 anion gap 22 5. Lactic acid is 2.4 after IV fluids lactic acid improved to 1.3. Troponins were unremarkable with a slight negative delta. Urine did not show signs of infection flu COVID and RSV were negative. Chest x-ray normal patient. Patient has no respiratory compromise. On initial presentation NIH score was done was 0. CT head negative for any acute or subacute changes on repeat exam patient is feeling much better. He still is somewhat weak but he is improved from arrival. Discussed findings with the patient. He has no overt sign of infection I believe his symptoms resulting from dehydration. He does have a mild acute kidney injury. At this point we can discharge the patient home we should have him recheck his kidney function with his primary care doctor within the next 3 to 5 days encourage fluid intake is worsening or change symptoms return to the emergency room. Medical Records I reviewed the patient's medical records. Lab Data I reviewed the patient's lab results. 11/05/25 18:53 11/05/25 18:53 Radiology Impressions Chest X-Ray 11/05/25 18:46 IMPRESSION: No definite acute infiltrate or effusion. Head CT 11/05/25 18:46 IMPRESSION: No definite acute intracranial abnormality. If high clinical suspicion for acute ischemia, MRI would be more sensitive. Laboratory Results WBC 7.14 10^3/uL (3.29-11.43) 11/05/25 18:53 RBC 5.08 10^6/uL (3.85-5.65) 11/05/25 18:53 Hgb 13.60 g/dL (11.27-16.99) 11/05/25 18:53 Hct 43.6 % (37-53) 11/05/25 18:53 MCV 85.8 fl (82-101) 11/05/25 18:53 MCH 26.8 pg (27-33) L 11/05/25 18:53 MCHC 31.2 g/dL (30-55) 11/05/25 18:53 RDW 18.3 % (12.1-15.1) H 11/05/25 18:53 Plt Count 346 10^3/cmm (157-399) 11/05/25 18:53 MPV 10.1 fL (7.4-10.4) 11/05/25 18:53 Neut % (Auto) 70.1 % 11/05/25 18:53 Lymph % (Auto) 15.4 % 11/05/25 18:53 [place] % (Auto) 6.0 % 11/05/25 18:53 Eos % (Auto) 6.9 % 11/05/25 18:53 Baso % (Auto) 1.3 % 11/05/25 18:53 Neut # (Auto) 5.01 10^3/uL (1.8-7.7) 11/05/25 18:53 Lymph # (Auto) 1.1 10^3/uL (0.8-4.8) 11/05/25 18:53 [place] # (Auto) 0.4 10^3/uL (0.2-0.9) 11/05/25 18:53 Eos # (Auto) 0.5 10^3/uL (0.0-0.8) 11/05/25 18:53 Baso # (Auto) 0.1 10^3/uL (0.0-0.1) 11/05/25 18:53 Nucleated RBC % (auto) 0 % 11/05/25 18:53 Nucleated RBCs # 0.0 /100WBC 11/05/25 18:53 Sodium 137 mmol/L (136-145) 11/05/25 18:53 Potassium 4.5 mmol/L (3.5-5.1) 11/05/25 18:53 Chloride 96 mmol/L (98-107) L 11/05/25 18:53 Carbon Dioxide 23 mmol/L (22-29) 11/05/25 18:53 Anion Gap 22.5 (5-19) H 11/05/25 18:53 BUN 17 mg/dL (8-23) 11/05/25 18:53 Creatinine 2.2 mg/dL (0.7-1.2) H 11/05/25 18:53 GFR Calculation Not Reportable 11/05/25 18:53 Glucose 126 mg/dL (65-115) H 11/05/25 18:53 Calculated Osmolality 287 mOsm/kg (285-295) 11/05/25 18:53 Lactic Acid 3.9 mmol/L (0.5-2.2) H 11/05/25 18:53 Lactic Acid (Sepsis) 1.3 mmol/L (0.5-2.2) 11/05/25 22:00 Calcium 8.4 mg/dL (8.5-10.5) L 11/05/25 18:53 Total Bilirubin 0.9 mg/dL (0.15-1.2) 11/05/25 18:53 AST 11 U/L (0-40) 11/05/25 18:53 ALT < 5 U/L (0-41) 11/05/25 18:53 Alkaline Phosphatase 73 U/L (40-130) 11/05/25 18:53 Troponin T Baseline 23 ng/L (0-15) H 11/05/25 18:53 Troponin T 60 Minute 22.89 ng/L (0-15) H 11/05/25 19:46 Delta Troponin T -0.11 ABS# (0-10) L 11/05/25 19:46 Total Protein 7.4 g/dL (6.6-8.7) 11/05/25 18:53 Albumin 3.9 g/dL (3.5-5.2) 11/05/25 18:53 Globulin 3.5 g/dL (1.3-4.6) 11/05/25 18:53 Urine Color Dark yellow (Yellow) A 11/05/25 22:03 Urine Appearance Clear (CLEAR) 11/05/25 22:03 Urine pH 5.5 (5-7) 11/05/25 22:03 Ur Specific [place] 1.026 (1.005-1.030) 11/05/25 22:03 Urine Protein 1+ (Negative) A 11/05/25 22:03 Urine Glucose (UA) Negative (Normal) 11/05/25 22:03 Urine Ketones Trace (Negative) 11/05/25 22: Urine Blood Negative (Negative) 11/05/25 22:03 Urine Nitrate Negative (Negative) 11/05/25 22:03 Urine Bilirubin 2+ (Negative) H 11/05/25 22:03 Urine Urobilinogen 1.0 mg/dL (Negative) 11/05/25 22:03 Ur Leukocyte Esterase Trace (Negative) A 11/05/25 22:03 Urine RBC 0-2 /hpf (0-2) 11/05/25 22:03 Urine WBC 0-5 /hpf (0-5) 11/05/25 22:03 Ur Squamous Epith Cells 0-5 /hpf (0-5) 11/05/25 22:03 Amorphous Sediment Not Reportable 11/05/25 22:03 Urine Bacteria None seen /hpf (NONE) 11/05/25 22:03 Hyaline Casts 31.84 /lpf 11/05/25 22:03 Urine Mucus 1+ /hpf 11/05/25 22:03 Influenza A (PCR) Negative (Negative) 11/05/25 18:59 Influenza Type B (PCR) Negative (Negative) 11/05/25 18:59 RSV (PCR) Negative (Negative) 11/05/25 18:59 SARS-CoV-2 (PCR) Negative (Negative) 11/05/25 18:59 All radiology interpretation(s) finalized by discharge EKG Data EKG 1: I personally reviewed and interpreted this EKG as follows: Interpretation: EKG 11/05/2025 1831 paced rhythm with prolonged QT which is longer than it has been in the past previous EKGs that showed borderline QT. Rate is 83 QTc 620. Compared to EKG 12/27/2023 QTc is longer than previous Computer generated interpretation: Chest X-Ray 11/05/25 18:46 IMPRESSION: No definite acute infiltrate or effusion. Head CT 11/05/25 18:46 IMPRESSION: No definite acute intracranial abnormality. If high clinical suspicion for acute ischemia, MRI would be more sensitive. EKG 2: I personally reviewed and interpreted this EKG as follows: Interpretation: EKG 11/05/2025 1955 paced rhythm rate of 80 QTc is 596. This is slightly improved from previous EKG done earlier today. Computer generated interpretation: Chest X-Ray 11/05/25 18:46 IMPRESSION: No definite acute infiltrate or effusion. Head CT 11/05/25 18:46 IMPRESSION: No definite acute intracranial abnormality. If high clinical suspicion for acute ischemia, MRI would be more sensitive. Discharge Plan Discharge Patient Disposition: Home Clinical Impression: Dehydration, LILY (acute kidney injury) Condition: Stable Prescriptions: No Action (DME) CAM Boot See Rx Instructions .Route .MEDSUPPLY Qty: 1 0RF Rx Instructions: As directed omeprazole 40 mg capsule,delayed release(DR/EC) 40 mg PO DAILY amlodipine 10 mg tablet 10 mg PO DAILY Eliquis 5 mg tablet 5 mg PO BID Qty: 180 0RF Rx Instructions: PATIENT MUST MAKE APPOINTMENT AND BE SEEN FOR FURTHER REFILLS levothyroxine 150 mcg tablet 150 mcg PO DAILY isosorbide dinitrate 10 mg tablet 10 mg PO TID hydralazine 25 mg tablet 25 mg PO TID propranolol 40 mg tablet 40 mg PO BID metoprolol succinate 50 mg tablet extended release 24 hr 50 mg PO BID Magtab 84 mg tablet extended release 84 mg PO DAILY calcitriol 0.5 mcg capsule 0.5 mcg PO BID fluoxetine 40 mg capsule 40 mg PO DAILY 30 Days Qty: 30 0RF atorvastatin 20 mg tablet 20 mg PO DAILY 30 Days Qty: 30 0RF tamsulosin 0.4 mg capsule 0.4 mg PO BID 30 Days Qty: 60 0RF Discharge Orders: Discharge ED (Routine); Ordered 11/05/25 Ordered By: Nain Encinas Referrals: Joe Hernandez MD [Primary Care Provider, Family Practice] Patient Instructions: Opioid Safety, Pain Management, Patient Portal & [place] Instructions Activity Restrictions/Additional Instructions: Thank you for choosing [facility] for your healthcare needs today. It is very important that you follow up as instructed or that you return to the Emergency Department should you have concerns or if your condition changes or worsens in any way. Emergency department visits are focused on emergent conditions, in some cases you may require further evaluation on an outpatient basis. You were seen in the emergency room with complaint of weakness. Your cardiac enzymes were normal. You did have signs of mild dehydration your kidney function was slightly elevated. Labs improved with IV fluids. Your urine was normal did not have signs of any acute infection. Flu COVID and RSV were negative. Will discharge you home recommend rest for the next 2 to 3 days increase fluid intake follow-up with your primary care doctor within the next 3 to 5 days to have your kidney function rechecked. (Please note that included in your discharge packet is information concerning opioid safety and pain management. 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
[2025-11-05 19:16] LABS: Hematocrit 43.6 % (37-53); Hemoglobin 13.60 g/dL (11.27-16.99); Mean Corpuscular HGB Conc 31.2 g/dL (30-55); Mean Corpuscular Hemoglobin 26.8 pg (27-33); Mean Corpuscular Volume 85.8 fl (82-101); Nucleated Red Blood Cells % 0 %; Platelet Count 346 10^3/cmm (157-399); Red Blood Count 5.08 10^6/uL (3.85-5.65); White Blood Count 7.14 10^3/uL (3.29-11.43)
[2025-11-05 19:33] LABS: Alanine Aminotransferase < 5 U/L (0-41); Albumin Level 3.9 g/dL (3.5-5.2); Alkaline Phosphatase 73 U/L (40-130); Anion Gap 22.5 (5-19); Aspartate Amino Transferase 11 U/L (0-40); Blood Urea Nitrogen 17 mg/dL (8-23); Calcium 8.4 mg/dL (8.5-10.5); Carbon Dioxide 23 mmol/L (22-29); Chloride 96 mmol/L (98-107); Globulin 3.5 g/dL (1.3-4.6); Glucose 126 mg/dL (65-115); Osmolality Calculated 287 mOsm/kg (285-295); Potassium 4.5 mmol/L (3.5-5.1); Sodium 137 mmol/L (136-145); Total Protein 7.4 g/dL (6.6-8.7)
[2025-11-05 19:34] LABS: Lactic Sepsis W/Reflex 3.9 mmol/L (0.5-2.2)
[2025-11-05 19:35] LABS: Troponin(5th) Baseline 23 ng/L (0-15)
--- NOTE | 2025-11-05 19:46 | ECG_ITS ---
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
[2025-11-05 19:51] LABS: Respiratory Syncytial Virus Ce NEGATIVE (Negative); SARS-CoV-2 PCR NEGATIVE (Negative)
[2025-11-05 20:58] LABS: Reflex Lactate Order REFLEX LACTIC ORDERD
[2025-11-05 22:33] LABS: Glucose Urine UA Negative (Normal); Nitrate Urine Negative (Negative); Specific Gravity, Urine 1.026 (1.005-1.030)
[2025-11-05 22:37] LABS: Add Urine Microscopic? YES
[2025-11-05 22:41] LABS: Lactic Acid level (Lactate) 1.3 mmol/L (0.5-2.2)
[2025-11-05 22:48] LABS: UA Slide Review UA Slide Review Perf
== END 2025-11-05 23:14 | disposition home or self-care (01) ==
PROVIDERS: Emergency Provider Family Medicine; PCP Family Medicine
DX: E86.0 Dehydration (principal); N17.9 Acute kidney failure, unspecified; Z79.01 Long term (current) use of anticoagulants; Z11.52 Encounter for screening for COVID-19; Z87.891 Personal history of nicotine dependence; I10 Essential (primary) hypertension
CPT/HCPCS: 36415; 70450; 71045; 80053; 81001; 83605; 84484; 85025; 87040; 87637; 93005; 99285; J7030